=== PATIENT | male | born 1940 | race Caucasian/White ===

== ENCOUNTER 2018-09-03 15:16 | Inpatient (IN) | payer MEDICARE, BC ==
[~2018-09-03] VITALS: Ht 182.9 cm; Wt 76.0 kg
[2018-09-03 15:56] LABS: BASO % 1 % (0-3); EOS # 0.1 x10^3/uL (0.0-0.7); EOS % 1 % (0-3); HEMATOCRIT 34.6 % (39.0-53.0); HEMOGLOBIN 11.4 g/dL (13.0-17.5); LYMPH # 1.4 x10^3/uL (1.0-4.8); LYMPH % 22 % (24-48); MEAN CORPUSCULAR HEMOGLOBIN 30 pg (25-35); MEAN CORPUSCULAR HGB CONC 33 g/dL (31-37); MEAN CORPUSCULAR VOLUME 91 fL (79-100); MONO # 0.5 x10^3/uL (0.0-1.1); MONO % 8 % (0-9); NEUT # 4.3 x10^3uL (1.8-7.7); NEUT % 69 % (31-73); PLATELET COUNT 234 x10^3/uL (140-400); RED BLOOD COUNT 3.82 x10^6/uL (4.30-5.70); RED CELL DISTRIBUTION WIDTH 14.6 % (11.5-14.5); WHITE BLOOD COUNT 6.2 x10^3/uL (4.0-11.0)
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
[2018-09-03 16:10] LABS: CLARITY,URINE CLEAR; COLOR,URINE AMBER
[2018-09-03 16:11] LABS: BACTERIA,URINE 0 /HPF (0-FEW); BILIRUBIN,URINE NEG (NEG); GLUCOSE,URINE NEG (NEG); NITRITE,URINE NEG (NEG); RBC,URINE 0 /HPF (0-2); SQUAMOUS EPITHELIAL CELL,UR OCC /LPF; UROBILINOGEN,URINE 0.2 mg/dL (0.2 mg/dL); WBC,URINE 0 /HPF (0-4)
[2018-09-03 16:12] LABS: ALBUMIN 3.6 g/dL (3.4-5.0); ALBUMIN/GLOBULIN RATIO 1.2 (1.0-1.7); CALCIUM 9.4 mg/dL (8.5-10.1); CREATININE 1.3 mg/dL (0.7-1.3); GFR 53.5; MAGNESIUM 1.9 mg/dL (1.8-2.4); POTASSIUM 3.9 mmol/L (3.5-5.1); TOTAL BILIRUBIN 0.5 mg/dL (0.2-1.0); TOTAL PROTEIN 6.6 g/dL (6.4-8.2)
--- NOTE | 2018-09-03 16:48 | EKG ---
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
[2018-09-03] MEDS ORDERED: NITROGLYCERIN SUBLINGUAL 0.4 MG BOTTLE OF 25. SL PRN (18:15)
[2018-09-03] MEDS ORDERED: SENNOSIDES/DOCUSATE 8.6/50MG TABLET. PO PRN (18:15)
[2018-09-03] MEDS ORDERED: ACETAMINOPHEN 325 MG TABLET PO PRN (18:15)
[2018-09-03] MEDS ORDERED: NITR0.4T22 SL (18:20)
[2018-09-03] MEDS ORDERED: ASCO500T PO (18:20)
[2018-09-03] MEDS ORDERED: ATOR40TA59 PO (18:20)
[2018-09-03] MEDS ORDERED: MEMA10TA PO (18:20)
[2018-09-03] MEDS ORDERED: AZEL137S3 NS (18:20)
[2018-09-03] MEDS ORDERED: SENN1TAB62 PO (18:20)
[2018-09-03] MEDS ORDERED: MIRT15TA PO (18:20)
[2018-09-03] MEDS ORDERED: METO25TA4 PO (18:20)
[2018-09-03] MEDS ORDERED: CHOL10003 PO (18:20)
[2018-09-03] MEDS ORDERED: ASPI-612 PO (18:20)
[2018-09-03] MEDS ORDERED: FOLI1TAB16 PO (18:20)
[2018-09-03] MEDS ORDERED: HYDR50CA2 PO (18:20)
[2018-09-03] MEDS ORDERED: MULT1TAB52 PO (18:20)
[2018-09-03] MEDS ORDERED: MELA3TAB2 PO (18:20)
[2018-09-03] MEDS ORDERED: APIX5TAB3 PO (18:20)
[2018-09-03] MEDS ORDERED: CALC500T31 PO (18:20)
[2018-09-03] MEDS ORDERED: ACET325T9 PO (18:20)
[2018-09-03] MEDS ORDERED: METHYL SALICYLATE/MENTHOL TOPICAL OINTMENT 29GM TUBE. TP PRN (18:30)
[2018-09-03] MEDS ORDERED: MAGNESIUM HYDROXIDE 2,400 MG/30 ML ORAL.SUSP. PO PRN (18:30)
[2018-09-03] MEDS ORDERED: MAG HYDROX/AL HYDROX/SIMETH 30 ML ORAL.SUSP PO PRN (18:30)
[2018-09-03 18:35] VITALS: BP 113/82
[2018-09-03] MEDS: AZELASTINE NASAL SPRAY 30ML BOTTLE. NS SCH (21:00)
[2018-09-03] MEDS: METOPROLOL TART IMMED RELEASE 25 MG TABLET PO SCH (21:29)
[2018-09-03] MEDS: APIXABAN 5 MG TABLET. PO SCH (21:29)
[2018-09-03] MEDS: MIRTAZAPINE 7.5 MG TABLET. PO SCH (21:30)
[2018-09-03] MEDS: CALCIUM CARBONATE 500 MG TABLET PO SCH (21:30)
[2018-09-03] MEDS: MEMANTINE 10 MG TABLET. PO SCH (21:30)
[2018-09-03] MEDS: ATORVASTATIN CALCIUM 20 MG TABLET PO SCH (21:30)
[2018-09-03] MEDS: CHOLECALCIFEROL (VITAMIN D3) 1,000 UNIT TABLET PO SCH (21:30)
[2018-09-03] MEDS: MELATONIN 3 MG TABLET PO SCH (21:30)
--- NOTE | 2018-09-03 22:20 | PDOC ---
Exam Note: Hu Note: Please also refer to the separate dictated note~for this date of service dictated separately. Discussed the patient with Nursing staff reviewed the chart.~Reviewed interim history and current functioning. Reviewed vital signs,~Labs/ Radiology~and current medications noted below. Continue current treatment with the changes noted in the dictated addendum note Assessment: Vital Signs: Vital Signs Date Time Temp Pulse Resp B/P (MAP) Pulse Ox O2 Delivery O2 Flow Rate FiO2 09/03/18 21:29 89 113/82 09/03/18 18:35 98.8 16 98 09/03/18 17:10 Room Air Labs: Laboratory Tests Test 09/03/18 15:35 09/03/18 15:45 White Blood Count 6.2 x10^3/uL (4.0-11.0) Red Blood Count 3.82 x10^6/uL (4.30-5.70) L Hemoglobin 11.4 g/dL (13.0-17.5) L Hematocrit 34.6 % (39.0-53.0) L Mean Corpuscular Volume 91 fL (79-100) Mean Corpuscular Hemoglobin 30 pg (25-35) Mean Corpuscular Hemoglobin Concent 33 g/dL (31-37) Red Cell Distribution Width 14.6 % (11.5-14.5) H Platelet Count 234 x10^3/uL (140-400) Neutrophils (%) (Auto) 69 % (31-73) Lymphocytes (%) (Auto) 22 % (24-48) L Monocytes (%) (Auto) 8 % (0-9) Eosinophils (%) (Auto) 1 % (0-3) Basophils (%) (Auto) 1 % (0-3) Neutrophils # (Auto) 4.3 x10^3uL (1.8-7.7) Lymphocytes # (Auto) 1.4 x10^3/uL (1.0-4.8) Monocytes # (Auto) 0.5 x10^3/uL (0.0-1.1) Eosinophils # (Auto) 0.1 x10^3/uL (0.0-0.7) Basophils # (Auto) 0.0 x10^3/uL (0.0-0.2) Sodium Level 145 mmol/L (136-145) Potassium Level 3.9 mmol/L (3.5-5.1) Chloride Level 108 mmol/L (98-107) H Carbon Dioxide Level 29 mmol/L (21-32) Anion Gap 8 (6-14) Blood Urea Nitrogen 16 mg/dL (8-26) Creatinine 1.3 mg/dL (0.7-1.3) Estimated GFR (Cockcroft-Gault) 53.5 BUN/Creatinine Ratio 12 (6-20) Glucose Level 103 mg/dL (70-99) H Calcium Level 9.4 mg/dL (8.5-10.1) Magnesium Level 1.9 mg/dL (1.8-2.4) Total Bilirubin 0.5 mg/dL (0.2-1.0) Aspartate Amino Transferase (AST) 29 U/L (15-37) Alanine Aminotransferase (ALT) 16 U/L (16-63) Alkaline Phosphatase 103 U/L (46-116) Total Protein 6.6 g/dL (6.4-8.2) Albumin 3.6 g/dL (3.4-5.0) Albumin/Globulin Ratio 1.2 (1.0-1.7) Urine Collection Type Unknown Urine Color Sania Urine Clarity Clear Urine pH 5.5 Urine Specific Marine 1.015 Urine Protein Neg (NEG-TRACE) Urine Glucose (UA) Neg mg/dL (NEG) Urine Ketones (Stick) Trace mg/dL (NEG) Urine Blood Neg (NEG) Urine Nitrite Neg (NEG) Urine Bilirubin Neg (NEG) Urine Urobilinogen Dipstick 0.2 mg/dL (0.2 mg/dL) Urine Leukocyte Esterase Neg (NEG) Urine RBC 0 /HPF (0-2) Urine WBC 0 /HPF (0-4) Urine Squamous Epithelial Cells Occ /LPF Urine Bacteria 0 /HPF (0-FEW) Urine Mucus Slight /LPF Current Medications: Meds: Current Medications Acetaminophen (Tylenol) 650 mg PRN Q4HRS PRN PO PAIN / TEMP; Start 09/03/18 at 18:15 Calcium Carbonate/ Glycine (Oscal) 500 mg QHS PO Last administered on 09/03/18at 21:30; Start 09/03/18 at 21:00 Vitamin D (Vitamin D3) 1,000 unit BID PO Last administered on 09/03/18at 21:30; Start 09/03/18 at 21:00 Nitroglycerin (Nitrostat) 0.4 mg PRN Q5MIN PRN SL CHEST PAIN; Start 09/03/18 at 18:15 Senna/Docusate Sodium (Senna Plus) 1 tab PRN BID PRN PO CONSTIPATION; Start 09/03/18 at 18:15 Apixaban (Eliquis) 5 mg BID PO Last administered on 09/03/18at 21:29; Start 09/03/18 at 21:00 Ascorbic Acid (Vitamin C) 500 mg DAILY PO ; Start 09/04/18 at 09:00 Aspirin (Aspirin Enteric Coated) 81 mg DAILYWBKFT PO ; Start 09/04/18 at 08:00 Atorvastatin Calcium (Lipitor) 40 mg QHS PO Last administered on 09/03/18at 21:30; Start 09/03/18 at 21:00 Folic Acid (Folic Acid) 1 mg DAILY PO ; Start 09/04/18 at 09:00 Melatonin 6 mg QHS PO Last administered on 09/03/18at 21:30; Start 09/03/18 at 21:00 Memantine (Namenda) 10 mg BID PO Last administered on 09/03/18at 21:30; Start 09/03/18 at 21:00 Mirtazapine (Remeron) 7.5 mg QHS PO Last administered on 09/03/18at 21:30; Start 09/03/18 at 21:00 Multivitamins/ Calcium (Thera-M Plus) 1 tab DAILY PO ; Start 09/04/18 at 09:00 Azelastine HCl (Astelin) 1 spray BID NS ; Start 09/03/18 at 21:00 Metoprolol Tartrate (Lopressor) 25 mg BID PO Last administered on 09/03/18at 21:29; Start 09/03/18 at 21:00 Quetiapine Fumarate (SEROquel) 25 mg PRN BID PRN PO ANXIETY / AGITATION; Start 09/03/18 at 18:30 Multi-Ingredient Ointment (Analgesic [place]) 1 kelsie PRN QID PRN TP MUSCLE PAIN; Start 09/03/18 at 18:30 Al Hydroxide/Mg Hydroxide (Mylanta Plus Xs) 15 ml PRN AFTMEALHC PRN PO DYSPEPSIA; Start 09/03/18 at 18:30 Magnesium Hydroxide (Milk Of Magnesia) 2,400 mg PRN QHS PRN PO CONSTIPATION; Start 09/03/18 at 18:30 Active Scripts Active Reported Tylenol (Acetaminophen) 325 Mg Tablet 650 Mg PO PRN Q4HRS PRN NITROGLYCERIN SubLingual (Nitroglycerin) 0.4 Mg Tab.subl 0.4 Mg SL PRN Q5MIN PRN Senna Plus Tablet (Sennosides/Docusate Sodium) 1 Each Tablet 1 Each PO PRN BID PRN Vitamin D3 (Cholecalciferol (Vitamin D3)) 1,000 Unit Tablet 1,000 Unit PO BID Vitamin C (Ascorbic Acid) 500 Mg Tab.chew 500 Mg PO DAILY Multivitamins (Multivitamin) 1 Each Tablet 1 Each PO DAILY Remeron (Mirtazapine) 15 Mg Tablet 7.5 Mg PO QHS Metoprolol Tartrate 25 Mg Tablet 25 Mg PO BID Namenda (Memantine Hcl) 10 Mg Tablet 10 Mg PO BID Melatonin 3 Mg Tablet 6 Mg PO QHS Hydroxyzine Pamoate 50 Mg Capsule 50 Mg PO QID Folic Acid 1 Mg Tablet 1 Tab PO DAILY Eliquis (Apixaban) 5 Mg Tablet 5 Mg PO BID Calcium Carbonate 500 Mg Tablet 500 Mg PO QHS Azelastine Hcl 137 Mcg/0.137 Ml Romulus.pump 1 Spr NS BID Atorvastatin Calcium 40 Mg Tablet 40 Mg PO QHS Aspirin Ec (Aspirin) 81 Mg Tablet. 81 Mg PO DAILY I have reviewed the current psychotropics carefully including drug interactions. Risk benefit ratio favors no change other than as noted in my dictated progress note. NELSON VASQUEZ MD September 03, 2018 22:20
[2018-09-04 06:10] VITALS: BP 122/79
[2018-09-04] MEDS: MULTIVITAMIN with MINERAL TABLET. PO SCH (09:00)
--- NOTE | 2018-09-04 11:28 | RAD ---
CT HEAD WO CONTRAST History: Recent change in mental status Comparison: None. Technique: Noncontrast CT imaging was performed of the head. Exposure: One or more of the following individualized dose reduction techniques were utilized for this examination: 1. Automated exposure control 2. Adjustment of the mA and/or kV according to patient size 3. Use of iterative reconstruction technique. Findings: There is some motion degradation. There is no evidence of acute intracranial hemorrhage. There is asymmetric area of lower density of the right parietal temporal lobes estimated about 3.5 cm AP by about 2.6 cm transverse. There is extent near cortical surface, also along the posterior margin of the right lateral ventricle. There is other scattered mild ill-defined low-density of the supratentorial parenchyma bilaterally. Ventricular size is within normal limits. There is mild supratentorial atrophy. There is atherosclerotic calcification of the carotid siphons bilaterally. Visualized paranasal sinuses and mastoid air cells are overall aerated. Impression: 1. There is area of lower density of the right parietal temporal lobes, could be a subacute infarct. There are no previous exams for comparison. Other ill-defined low-density of the supratentorial parenchyma is nonspecific although more commonly due to chronic microvascular ischemic disease in a patient this age. FOR INTERNAL CODING PURPOSES Critical result: Findings discussed with patient's nurse Kelsey at 09/04/2018 11:25 AM, to inform doctor of findings. RESULT CODE: (C) Electronically signed by: Cooper Wallis MD (09/04/2018 11:26 AM) [id number]
--- NOTE | 2018-09-04 11:38 | NUR ---
Nursing Note: Rec phone call from radiology. CT Head results show, 'lover density of right parietal temporal lobes, could be a subacute infarct.' Dr. Pettit informed, orders rec to consults Dr. Mcpherson, Neuro.
--- NOTE | 2018-09-04 11:59 | NUR ---
Discussed with patient daughter, Dilma, jose last CT head was approximately a year ago.
[2018-09-04] MEDS: CHOLECALCIFEROL (VITAMIN D3) 1,000 UNIT TABLET PO SCH ×2 (12:05→19:31)
[2018-09-04] MEDS: APIXABAN 5 MG TABLET. PO SCH ×2 (12:05→19:31)
[2018-09-04] MEDS: MEMANTINE 10 MG TABLET. PO SCH ×2 (12:05→19:31)
[2018-09-04] MEDS: METOPROLOL TART IMMED RELEASE 25 MG TABLET PO SCH ×2 (12:06→19:31)
[2018-09-04] MEDS: AZELASTINE NASAL SPRAY 30ML BOTTLE. NS SCH ×2 (12:09→19:32)
[2018-09-04] MEDS: ASPIRIN ENTERIC COATED 81 MG TABLET.DR. PO SCH (12:09)
[2018-09-04] MEDS: ASCORBIC ACID 500 MG TABLET PO SCH (12:09)
[2018-09-04] MEDS: FOLIC ACID 1 MG TABLET PO SCH (12:13)
--- NOTE | 2018-09-04 12:16 | NUR ---
WEEKLY NOTE Pt. is a new admit. Pt. will be scheduled for a CT head scan. Pt. does not have a UTI. Pt. is tentatively scheduled to discharge the early part of the week after next.
--- NOTE | 2018-09-04 12:23 | NUR ---
GERARDO contacted Frida, nurse at [facility], to exchange contact information. Frida shared pt. often gets aggressive around 4:00 p.m. She also reports when pt. is at his baseline, he prefers to have his bedtime medications with his supper, as he goes to bed early.
[2018-09-04] MEDS ORDERED: traZODone 50 MG TABLET. PO ONE (13:00)
--- NOTE | 2018-09-04 13:24 | NUR ---
Nursing Note: Pt agitated. Told walked up behind staff member and said, "You don't want to , do you?" Pt also stated, "It's gonna blow up." Dr. Saeed contacted. PRN ordered and administered. Pt in [facility] shaking doors, hitting windows. Will continue to monitor.
--- NOTE | 2018-09-04 13:55 | NUR ---
Nursing Note: While pt was in [facility], pt was agitated, shaking day room door, and hitting window of nurses station. Pt closed the door of quiet room. When this behavior/act was discovered, action was taken to correct.
[2018-09-04 13:56] LABS: THYROID STIM HORMONE (TSH) 1.17 uIU/mL (0.358-3.740)
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
[2018-09-04 15:37] VITALS: BP 137/82
[2018-09-04] MEDS: traZODone 50 MG TABLET. PO SCH (16:52)
[2018-09-04 18:11] LABS: THYROXINE 5.5 ug/dL (4.5-12.0)
[2018-09-04] MEDS: MELATONIN 3 MG TABLET PO SCH (19:31)
[2018-09-04] MEDS: ATORVASTATIN CALCIUM 20 MG TABLET PO SCH (19:31)
[2018-09-04] MEDS: CALCIUM CARBONATE 500 MG TABLET PO SCH (19:31)
[2018-09-04] MEDS: MIRTAZAPINE 7.5 MG TABLET. PO SCH (19:31)
--- NOTE | 2018-09-04 22:14 | PDOC ---
Exam Note: Hu Note: Please also refer to the separate dictated note~for this date of service dictated separately.~Patient seen individually. Discussed the patient with Nursing staff reviewed the chart.~Reviewed interim history and current functioning. Reviewed vital signs,~Labs/ Radiology~and current medications noted below. Continue current treatment with the changes noted in the dictated addendum note Assessment: Vital Signs: Vital Signs Date Time Temp Pulse Resp B/P (MAP) Pulse Ox O2 Delivery O2 Flow Rate FiO2 09/04/18 19:31 83 137/82 09/04/18 15:37 98.9 16 96 09/03/18 17:10 Room Air I&O Intake and Output 09/04/18 07:00 Intake Total 420 ml Balance 420 ml Intake Oral 420 ml # Voids 1 Current Medications: Meds: Current Medications Acetaminophen (Tylenol) 650 mg PRN Q4HRS PRN PO PAIN / TEMP; Start 09/03/18 at 18:15 Calcium Carbonate/ Glycine (Oscal) 500 mg QHS PO Last administered on 09/04/18 19:31; Start 09/03/18 at 21:00 Vitamin D (Vitamin D3) 1,000 unit BID PO Last administered on 09/04/18 19:31; Start 09/03/18 at 21:00 Nitroglycerin (Nitrostat) 0.4 mg PRN Q5MIN PRN SL CHEST PAIN; Start 09/03/18 at 18:15 Senna/Docusate Sodium (Senna Plus) 1 tab PRN BID PRN PO CONSTIPATION; Start 09/03/18 at 18:15 Apixaban (Eliquis) 5 mg BID PO Last administered on 09/04/18 19:31; Start 09/03/18 at 21:00 Ascorbic Acid (Vitamin C) 500 mg DAILY PO Last administered on 09/04/18 12:09; Start 09/04/18 at 09:00 Aspirin (Aspirin Enteric Coated) 81 mg DAILYWBKFT PO Last administered on 09/04/18 12:09; Start 09/04/18 at 08:00 Atorvastatin Calcium (Lipitor) 40 mg QHS PO Last administered on 09/04/18 19:31; Start 09/03/18 at 21:00 Folic Acid (Folic Acid) 1 mg DAILY PO Last administered on 09/04/18at 12:13; Start 09/04/18 at 09:00 Melatonin 6 mg QHS PO Last administered on 09/04/18 19:31; Start 09/03/18 at 21:00 Memantine (Namenda) 10 mg BID PO Last administered on 09/04/18 19:31; Start 09/03/18 at 21:00 Mirtazapine (Remeron) 7.5 mg QHS PO Last administered on 09/04/18 19:31; Start 09/03/18 at 21:00 Multivitamins/ Calcium (Thera-M Plus) 1 tab DAILY PO Last administered on 09/04/18 09:00; Start 09/04/18 at 09:00 Azelastine HCl (Astelin) 1 spray BID NS Last administered on 09/04/18 19:32; Start 09/03/18 at 21:00 Metoprolol Tartrate (Lopressor) 25 mg BID PO Last administered on 09/04/18 19:31; Start 09/03/18 at 21:00 Quetiapine Fumarate (SEROquel) 25 mg PRN BID PRN PO ANXIETY / AGITATION; Start 09/03/18 at 18:30 Multi-Ingredient Ointment (Analgesic [place]) 1 kelsie PRN QID PRN TP MUSCLE PAIN; Start 09/03/18 at 18:30 Al Hydroxide/Mg Hydroxide (Mylanta Plus Xs) 15 ml PRN AFTMEALHC PRN PO DYSPEPSIA; Start 09/03/18 at 18:30 Magnesium Hydroxide (Milk Of Magnesia) 2,400 mg PRN QHS PRN PO CONSTIPATION; Start 09/03/18 at 18:30 Trazodone HCl (Desyrel) 25 mg 1X ONCE PO Last administered on 09/04/18 13:19; Start 09/04/18 at 13:00; Stop 09/04/18 at 13:10; Status DC Trazodone HCl (Desyrel) 25 mg 0900,1700 PO Last administered on 09/04/18 16:52; Start 09/04/18 at 17:00 Active Scripts Active Reported Tylenol (Acetaminophen) 325 Mg Tablet 650 Mg PO PRN Q4HRS PRN NITROGLYCERIN SubLingual (Nitroglycerin) 0.4 Mg Tab.subl 0.4 Mg SL PRN Q5MIN PRN Senna Plus Tablet (Sennosides/Docusate Sodium) 1 Each Tablet 1 Each PO PRN BID PRN Vitamin D3 (Cholecalciferol (Vitamin D3)) 1,000 Unit Tablet 1,000 Unit PO BID Vitamin C (Ascorbic Acid) 500 Mg Tab.chew 500 Mg PO DAILY Multivitamins (Multivitamin) 1 Each Tablet 1 Each PO DAILY Remeron (Mirtazapine) 15 Mg Tablet 7.5 Mg PO QHS Metoprolol Tartrate 25 Mg Tablet 25 Mg PO BID Namenda (Memantine Hcl) 10 Mg Tablet 10 Mg PO BID Melatonin 3 Mg Tablet 6 Mg PO QHS Hydroxyzine Pamoate 50 Mg Capsule 50 Mg PO QID Folic Acid 1 Mg Tablet 1 Tab PO DAILY Eliquis (Apixaban) 5 Mg Tablet 5 Mg PO BID Calcium Carbonate 500 Mg Tablet 500 Mg PO QHS Azelastine Hcl 137 Mcg/0.137 Ml [place].pump 1 Spr NS BID Atorvastatin Calcium 40 Mg Tablet 40 Mg PO QHS Aspirin Ec (Aspirin) 81 Mg Tablet.dr 81 Mg PO DAILY I have reviewed the current psychotropics carefully including drug interactions. Risk benefit ratio favors no change other than as noted in my dictated progress note. Diagnosis: Problems: (1) Anxiety disorder (2) Dementia, vascular, with depression (3) Dementia, vascular, with delusions (4) Dementia in Alzheimer's disease with depression (5) Dementia in Alzheimer's disease with delusions (6) Impulse control disorder NELSON VASQUEZ MD September 04, 2018 22:14
--- NOTE | 2018-09-04 23:20 | NUR ---
Pt sitting up in day room, interacting with peer and watching television at shift change. Pt calm, pleasant, and social. No agitation or aggression noted thus far this shift. Pt cooperative with assessment and compliant with medications administered whole.
[2018-09-05 05:10] VITALS: BP 138/81
[2018-09-05] MEDS: ASCORBIC ACID 500 MG TABLET PO SCH (07:52)
[2018-09-05] MEDS: METOPROLOL TART IMMED RELEASE 25 MG TABLET PO SCH ×2 (07:53→20:15)
[2018-09-05] MEDS: MULTIVITAMIN with MINERAL TABLET. PO SCH (07:53)
[2018-09-05] MEDS: FOLIC ACID 1 MG TABLET PO SCH (07:53)
[2018-09-05] MEDS: ASPIRIN ENTERIC COATED 81 MG TABLET.DR. PO SCH (07:54)
[2018-09-05] MEDS: MEMANTINE 10 MG TABLET. PO SCH ×2 (07:54→20:12)
[2018-09-05] MEDS: CHOLECALCIFEROL (VITAMIN D3) 1,000 UNIT TABLET PO SCH ×2 (07:54→20:15)
[2018-09-05] MEDS: APIXABAN 5 MG TABLET. PO SCH ×2 (07:54→20:14)
[2018-09-05] MEDS: traZODone 50 MG TABLET. PO SCH ×2 (07:55→17:43)
[2018-09-05] MEDS: AZELASTINE NASAL SPRAY 30ML BOTTLE. NS SCH ×2 (07:58→20:19)
--- NOTE | 2018-09-05 09:00 | NUR ---
Nursing Note: Assumed care of pt approx 0700. Pt in dining room at time of morning med pass. Pt calm, confused, compliant w/ meds taken whole, needing prompting as he isn't quite sure what to do with the pills, cooperative w/ assessment. Pt wanders the unit and often stands in the day room for long periods of time.
--- NOTE | 2018-09-05 09:00 | NUR ---
Nursing Note: Called Dr. Mcpherson's office to insure that consult was received.
[2018-09-05 10:10] LABS: HEMOGLOBIN A1C 5.2 % (4.8-5.6)
--- NOTE | 2018-09-05 10:34 | NUR ---
Activity Therapy Assessment Completed based on observation, attempted interview and [employer] notes. Pt. was wandering the hallway with another patient when therapist approached. Therapist greeted the patients and Pt. nodded at her. Other patient began speaking in word salad and seemed in a good mood. Therapist attempted to engage Pt. in conversation, asking how his day was- Pt. shrugged and mumbled something therapist could not hear. Therapist walked with patients but when she asked to sit and talk, Pt. responded 'we don't have time' and seemed disinterested in talking to therapist. Pt. affect was flat and he showed no emotion. Therapist thanked Pt. and told him she would see him later. Pt. waved and continued walking the hallways with other patient. Pt. ambulates independently, walking with the other patient often. Pt. wanders in and out of groups but has yet to participate. 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 Pt. responds to name but is disoriented to time, place, and situation. [employer] notes indicate that Pt. can be verbally aggressive with staff and has spent time in the secured hallway but therapist has yet to observe this behavior. Initial goal aimed to increase socialization and engagement: Pt. will participate in at least three Activity Therapy groups or individual sessions before discharge. Addendum: 09/11/18 at 1039 by MIKY [employer] ACT Goal changed 09/11/18: Pt. will participate in at least three Activity Therapy individual or group sessions per week
--- NOTE | 2018-09-05 15:40 | NUR ---
Nursing Note: Pt's family called and asked if family could celebrate pt's birthday with more than two people as visitors and a child under 12 years old. Spoke with oil recovery unit operator. Family is allowed to bring 5 adults on pt's birthday [birth year] and to use group room. However, no person under 12 is allowed on the unit. Family is aware and Jaylin, Social Work, also aware.
[2018-09-05 16:15] VITALS: BP 123/84
[2018-09-05] MEDS: DIVALPROEX 125 MG CAP.SPRINK PO SCH (17:43)
--- NOTE | 2018-09-05 19:50 | CONS ---
DATE OF CONSULTATION: 09/03/2018 REASON FOR CONSULTATION: Medical management. HISTORY OF PRESENT ILLNESS: The patient is a 77-year-old male patient, a resident at [facility], who apparently was admitted on account of worsening confusion, dementia with drastic decline cognitively. The patient has been combative, throwing sugar shakers at everyone around him, pulling fire alarms. He pulled handrails off the wall. He was scaring other residents by hiding. He is having sleep and appetite changes, had failed outpatient psychiatric intervention and he was moved to another [facility]. As he has failed outpatient psychiatric intervention, he was admitted for inpatient psychiatric stabilization. The patient is extremely disorganized and does not give me any useful information. PAST MEDICAL HISTORY: Significant for atrial fibrillation, coronary artery disease with stent deployment, hypertension, chronic constipation, anemia, recent falls, history of fractured foot and repair, history of alcohol abuse in the past. PAST SURGICAL HISTORY: Significant for cholecystectomy, PCI with stent deployment and foot fractures treated with open reduction and internal fixation. He apparently had a CT scan of the head, which showed that he has parietal infarct which was not evident the last time this was done when he was here a year ago. ALLERGIES: HE IS ALLERGIC TO ZYPREXA. FAMILY HISTORY: Noncontributory. SOCIAL HISTORY: He is a resident at the [facility]. He does not smoke, drink alcohol or use any recreational drugs. MEDICATIONS: He is currently on following medications: He is on apixaban 5 mg twice a day, atorvastatin calcium 40 mg at bedtime, nitroglycerin 0.4 mg every 5 minutes x 3, metoprolol tartrate 25 mg twice a day, aspirin 81 mg once a day, Tylenol 650 mg every 4 hours, mirtazapine 7.5 mg at bedtime. He is on hydroxyzine pamoate 50 mg 4 times a day, Namenda 10 mg twice a day, calcium carbonate 500 mg at bedtime, Zalastin one spray to each nostril twice a day, Senna-S 1 tablet twice a day, folic acid 1 mg tablet once a day, ascorbic acid 500 mg daily, cholecalciferol 1000 international units 1 twice a day, multivitamin 1 tablet once a day, melatonin 6 mg at bedtime. REVIEW OF SYSTEMS: As per history of present illness. PHYSICAL EXAMINATION GENERAL: When I examined him, he looked somewhat pale, but no jaundice, cyanosis, or thyromegaly. No jugular venous distension. No lower limb edema. VITAL SIGNS: His heart rate was 83, blood pressure 157/82, temperature was 98.9, respiratory rate 16, and oxygen saturation was 96%. HEAD, EYES, EARS, NOSE AND THROAT: Normocephalic, atraumatic. NECK: Supple. HEART: Showed normal first and second heart sounds. No gallop, rub or murmur. CHEST: Clear to auscultation. No crepitation or rhonchi. ABDOMEN: Distended, soft, nontender. No guarding or rigidity. No organomegaly. All hernial orifice intact. Bowel sounds normal. NEUROLOGIC: He was clearly demented and does not really give any useful information; however, all his cranial nerves are grossly intact. EXTREMITIES: He moves extremities without difficulty. He has some wounds in his right wrist and outer aspect of the right leg covered with dressing. LABORATORY DATA: Showed that his white cell count was 6200, hemoglobin 11, hematocrit 34, MCV 91, and platelet count 234,000 with normal manual differential. His chemistry showed a serum sodium 145, potassium 3.9, chloride 108, bicarbonate 29, anion gap of 8, BUN 16, creatinine 1.3, estimated GFR was 54 mL per minute. His glucose 103, calcium was 9.4, magnesium was 1.9. Serum iron, TIBC and iron saturation are all consistent with anemia of chronic disease. Total bilirubin, AST, ALT, alkaline phosphatase were normal. Total protein was 6.6, albumin 3.6. Serum triglycerides were 33, total cholesterol 149, LDL cholesterol was 60, VLDL was 6, HDL cholesterol was 83 and the ratio was 1. His 25-hydroxy vitamin D was 49. His TSH was 1.17, total T4 was 5.5, total T3 was 68. His Treponema pallidum antibodies were nonreactive. Urinalysis was essentially unremarkable. He apparently has had a CT scan of the head, which basically showed that there are areas of low density in the right parietotemporal lobe, could be a subacute infarct. There are no previous exams for comparison. Other ill-defined low density of the supratentorial parenchyma is nonspecific, although more commonly due to chronic microvascular ischemic disease in the patient of this age. IMPRESSION: In summary, this is a 77-year-old male patient who was admitted as a transfer from [facility] on account of worsening confusion, dementia with drastic decline cognitively, the patient has been combative, throwing sugar shakers at everyone around him, pulling the fire alarms, he pulled handrails off the wall and has been scaring the residents by hiding. He has failed outpatient psychiatric intervention and therefore, he was admitted for inpatient psychiatric stabilization. Medically, the patient is known to have atrial fibrillation that seemed to be rate controlled while anticoagulated, has coronary artery disease, status post PCI with stent deployment, hypertension, chronic constipation, anemia, history of alcohol abuse and most recently has a parietal infarct that was not evident on the last time he was here. Generally, the patient seems to be medically stable. His vital signs are within normal range. His lab works are also within acceptable range. PLAN: My recommendation is to continue with his current medication. I will follow all his lab works that are still pending and make necessary recommendation. Thank you, Dr. Saeed, for allowing me to participate in the care of this patient. BECKY TALBOT MD DR: KATIE/rosa elena JOB#: [id number] / [id number]
[2018-09-05] MEDS: MIRTAZAPINE 7.5 MG TABLET. PO SCH (20:14)
[2018-09-05] MEDS: ATORVASTATIN CALCIUM 20 MG TABLET PO SCH (20:14)
[2018-09-05] MEDS: CALCIUM CARBONATE 500 MG TABLET PO SCH (20:14)
[2018-09-05] MEDS: MELATONIN 3 MG TABLET PO SCH (20:15)
--- NOTE | 2018-09-05 21:39 | NUR ---
Pt wandering in hallway at shift change. Pt calm, pleasantly confused, and interactive. Pt cooperative with assessment and compliant with medications administered whole. Dr. Mcpherson saw pt this evening, no new orders received at this time.
--- NOTE | 2018-09-05 22:26 | PDOC ---
Exam Note: Hu Note: Please also refer to the separate dictated note~for this date of service dictated separately.~Patient seen individually. Discussed the patient with Nursing staff reviewed the chart.~Reviewed interim history and current functioning. Reviewed vital signs,~Labs/ Radiology~and current medications noted below. Continue current treatment with the changes noted in the dictated addendum note Assessment: Vital Signs: Vital Signs Date Time Temp Pulse Resp B/P (MAP) Pulse Ox O2 Delivery O2 Flow Rate FiO2 09/05/18 20:15 75 123/84 09/05/18 16:15 97.9 17 99 Room Air I&O Intake and Output 09/05/18 06:59 Intake Total 720 ml Balance 720 ml Intake Oral 720 ml Current Medications: Meds: Current Medications Acetaminophen (Tylenol) 650 mg PRN Q4HRS PRN PO PAIN / TEMP; Start 09/03/18 at 18:15 Calcium Carbonate/ Glycine (Oscal) 500 mg QHS PO Last administered on 09/05/18at 20:14; Start 09/03/18 at 21:00 Vitamin D (Vitamin D3) 1,000 unit BID PO Last administered on 09/05/18 20:15; Start 09/03/18 at 21:00 Nitroglycerin (Nitrostat) 0.4 mg PRN Q5MIN PRN SL CHEST PAIN; Start 09/03/18 at 18:15 Senna/Docusate Sodium (Senna Plus) 1 tab PRN BID PRN PO CONSTIPATION; Start 09/03/18 at 18:15 Apixaban (Eliquis) 5 mg BID PO Last administered on 09/05/18 20:14; Start 09/03/18 at 21:00 Ascorbic Acid (Vitamin C) 500 mg DAILY PO Last administered on 09/05/18 07:52; Start 09/04/18 at 09:00 Aspirin (Aspirin Enteric Coated) 81 mg DAILYWBKFT PO Last administered on 09/05/18 07:54; Start 09/04/18 at 08:00 Atorvastatin Calcium (Lipitor) 40 mg QHS PO Last administered on 09/05/18 20:14; Start 09/03/18 at 21:00 Folic Acid (Folic Acid) 1 mg DAILY PO Last administered on 09/05/18 07:53; Start 09/04/18 at 09:00 Melatonin 6 mg QHS PO Last administered on 09/05/18 20:15; Start 09/03/18 at 21:00 Memantine (Namenda) 10 mg BID PO Last administered on 09/05/18 20:12; Start 09/03/18 at 21:00 Mirtazapine (Remeron) 7.5 mg QHS PO Last administered on 09/05/18 20:14; Start 09/03/18 at 21:00 Multivitamins/ Calcium (Thera-M Plus) 1 tab DAILY PO Last administered on 09/05/18 07:53; Start 09/04/18 at 09:00 Azelastine HCl (Astelin) 1 spray BID NS Last administered on 09/05/18 20:19; Start 09/03/18 at 21:00 Metoprolol Tartrate (Lopressor) 25 mg BID PO Last administered on 09/05/18 20:15; Start 09/03/18 at 21:00 Quetiapine Fumarate (SEROquel) 25 mg PRN BID PRN PO ANXIETY / AGITATION; Start 09/03/18 at 18:30 Multi-Ingredient Ointment (Analgesic [place]) 1 kelsie PRN QID PRN TP MUSCLE PAIN; Start 09/03/18 at 18:30 Al Hydroxide/Mg Hydroxide (Mylanta Plus Xs) 15 ml PRN AFTMEALHC PRN PO DYSPEPSIA; Start 09/03/18 at 18:30 Magnesium Hydroxide (Milk Of Magnesia) 2,400 mg PRN QHS PRN PO CONSTIPATION; Start 09/03/18 at 18:30 Trazodone HCl (Desyrel) 25 mg 1X ONCE PO Last administered on 09/04/18 13:19; Start 09/04/18 at 13:00; Stop 09/04/18 at 13:10; Status DC Trazodone HCl (Desyrel) 25 mg 0900,1700 PO Last administered on 09/05/18 17:43; Start 09/04/18 at 17:00 Divalproex Sodium (Depakote Sprinkles) 125 mg 0900,1700 PO Last administered on 09/05/18 17:43; Start 09/05/18 at 17:00 Active Scripts Active Reported Tylenol (Acetaminophen) 325 Mg Tablet 650 Mg PO PRN Q4HRS PRN NITROGLYCERIN SubLingual (Nitroglycerin) 0.4 Mg Tab.subl 0.4 Mg SL PRN Q5MIN PRN Senna Plus Tablet (Sennosides/Docusate Sodium) 1 Each Tablet 1 Each PO PRN BID PRN Vitamin D3 (Cholecalciferol (Vitamin D3)) 1,000 Unit Tablet 1,000 Unit PO BID Vitamin C (Ascorbic Acid) 500 Mg Tab.chew 500 Mg PO DAILY Multivitamins (Multivitamin) 1 Each Tablet 1 Each PO DAILY Remeron (Mirtazapine) 15 Mg Tablet 7.5 Mg PO QHS Metoprolol Tartrate 25 Mg Tablet 25 Mg PO BID Namenda (Memantine Hcl) 10 Mg Tablet 10 Mg PO BID Melatonin 3 Mg Tablet 6 Mg PO QHS Hydroxyzine Pamoate 50 Mg Capsule 50 Mg PO QID Folic Acid 1 Mg Tablet 1 Tab PO DAILY Eliquis (Apixaban) 5 Mg Tablet 5 Mg PO BID Calcium Carbonate 500 Mg Tablet 500 Mg PO QHS Azelastine Hcl 137 Mcg/0.137 Ml [place].pump 1 Spr NS BID Atorvastatin Calcium 40 Mg Tablet 40 Mg PO QHS Aspirin Ec (Aspirin) 81 Mg Tablet.dr 81 Mg PO DAILY I have reviewed the current psychotropics carefully including drug interactions. Risk benefit ratio favors no change other than as noted in my dictated progress note. Diagnosis: Problems: (1) Anxiety disorder (2) Dementia, vascular, with depression (3) Dementia, vascular, with delusions (4) Dementia in Alzheimer's disease with depression (5) Dementia in Alzheimer's disease with delusions (6) Impulse control disorder NELSON VASQUEZ MD September 05, 2018 22:26
--- NOTE | 2018-09-06 02:28 | PN ---
DATE: 09/04/2018 PSYCHIATRIC PROGRESS NOTE This note covers elements not covered in my initial note 09/04/2018. SUBJECTIVE: I met with the patient evening of 09/04/2018 and staffed at a treatment team meeting with the entire team in the morning of 09/04/2018. Reviewed his history, diagnosis, progress. I was called by the nursing staff late the previous night on account of the patient's marked agitation, aggression, disruptive behaviors. He had to be placed in the [facility], totally unmanageable, banging on doors. We did add Zyprexa Zydis. He remains confused. REVIEW OF SYSTEMS: No CV, , pulmonary, eye, ENT system symptoms on review. Reliability poor. MENTAL STATUS EXAM: Oriented to himself. Insight, judgment, recent and remote memory, attention, concentration, fund of knowledge poor, consistent with his diagnosis. I met with him at some length over suppertime. Initially, he was hungry, his tray was brought to him, but he was unable to sit long enough to eat any, was up and walking, had to be redirected back. LABORATORY DATA: Reviewed. IMPRESSION: Major neurocognitive disorder, Alzheimer, vascular with delusion, depression, behavioral disturbance; anxiety disorder, unspecified; impulse control disorder, unspecified. PLAN: Start Zyprexa Zydis 2.5 mg q.2 hours p.r.n. psychosis, agitation, max 10 mg in 24 hours. Continue Remeron 7.5 mg at bedtime, Namenda 10 mg b.i.d., hydroxyzine p.r.n., melatonin 5 mg at bedtime. Consider Depakote as a mood stabilizer. The patient's CT head shows a new infarct since his last visit about a year back and we will consult Dr. Mcpherson, Neurology for recommendation. NELSON VASQUEZ MD DR: OBDULIA/rosa elena JOB#: [id number] / [id number]
[2018-09-06 06:22] VITALS: BP 133/86
[2018-09-06] MEDS: AZELASTINE NASAL SPRAY 30ML BOTTLE. NS SCH ×2 (08:12→19:26)
[2018-09-06] MEDS: ASPIRIN ENTERIC COATED 81 MG TABLET.DR. PO SCH (08:12)
[2018-09-06] MEDS: DIVALPROEX 125 MG CAP.SPRINK PO SCH ×2 (08:13→16:52)
[2018-09-06] MEDS: traZODone 50 MG TABLET. PO SCH ×2 (08:13→16:52)
[2018-09-06] MEDS: APIXABAN 5 MG TABLET. PO SCH ×2 (08:13→19:25)
[2018-09-06] MEDS: ASCORBIC ACID 500 MG TABLET PO SCH (08:14)
[2018-09-06] MEDS: METOPROLOL TART IMMED RELEASE 25 MG TABLET PO SCH ×2 (08:14→19:25)
[2018-09-06] MEDS: MULTIVITAMIN with MINERAL TABLET. PO SCH (08:14)
[2018-09-06] MEDS: CHOLECALCIFEROL (VITAMIN D3) 1,000 UNIT TABLET PO SCH ×2 (08:14→19:26)
[2018-09-06] MEDS: FOLIC ACID 1 MG TABLET PO SCH (08:15)
[2018-09-06] MEDS: MEMANTINE 10 MG TABLET. PO SCH ×2 (08:15→19:25)
--- NOTE | 2018-09-06 10:48 | NUR ---
Pt is confused, calm, cooperative and wandering the unit. No agitation or aggression. No hallucinations or delusions. He is cooperative with his medication and assessment.
[2018-09-06 16:34] VITALS: BP 126/88
[2018-09-06] MEDS: MIRTAZAPINE 7.5 MG TABLET. PO SCH (19:25)
[2018-09-06] MEDS: ATORVASTATIN CALCIUM 20 MG TABLET PO SCH (19:25)
[2018-09-06] MEDS: CALCIUM CARBONATE 500 MG TABLET PO SCH (19:25)
[2018-09-06] MEDS: MELATONIN 3 MG TABLET PO SCH (19:25)
--- NOTE | 2018-09-06 20:38 | NUR ---
Pt sitting quietly in the day room at shift change. Pt calm, pleasantly confused, and disorganized. Pt cooperative with assessment and compliant with medications administered whole.
--- NOTE | 2018-09-06 22:28 | PDOC ---
Exam Note: Hu Note: Please also refer to the separate dictated note~for this date of service dictated separately.~Patient seen individually. Discussed the patient with Nursing staff reviewed the chart.~Reviewed interim history and current functioning. Reviewed vital signs,~Labs/ Radiology~and current medications noted below. Continue current treatment with the changes noted in the dictated addendum note Assessment: Vital Signs: Vital Signs Date Time Temp Pulse Resp B/P (MAP) Pulse Ox O2 Delivery O2 Flow Rate FiO2 09/06/18 19:25 87 126/88 09/06/18 16:34 98.7 18 99 09/05/18 16:15 Room Air I&O Intake and Output 09/06/18 06:59 Intake Total 1220 ml Balance 1220 ml Intake Oral 1220 ml # Voids 1 Current Medications: Meds: Current Medications Acetaminophen (Tylenol) 650 mg PRN Q4HRS PRN PO PAIN / TEMP; Start 09/03/18 at 18:15 Calcium Carbonate/ Glycine (Oscal) 500 mg QHS PO Last administered on 09/06/18at 19:25; Start 09/03/18 at 21:00 Vitamin D (Vitamin D3) 1,000 unit BID PO Last administered on 09/06/18at 19:26; Start 09/03/18 at 21:00 Nitroglycerin (Nitrostat) 0.4 mg PRN Q5MIN PRN SL CHEST PAIN; Start 09/03/18 at 18:15 Senna/Docusate Sodium (Senna Plus) 1 tab PRN BID PRN PO CONSTIPATION; Start 09/03/18 at 18:15 Apixaban (Eliquis) 5 mg BID PO Last administered on 09/06/18 19:25; Start 09/03/18 at 21:00 Ascorbic Acid (Vitamin C) 500 mg DAILY PO Last administered on 09/06/18at 08:14; Start 09/04/18 at 09:00 Aspirin (Aspirin Enteric Coated) 81 mg DAILYWBKFT PO Last administered on 09/06/18at 08:12; Start 09/04/18 at 08:00 Atorvastatin Calcium (Lipitor) 40 mg QHS PO Last administered on 09/06/18 19:25; Start 09/03/18 at 21:00 Folic Acid (Folic Acid) 1 mg DAILY PO Last administered on 09/06/18 08:15; Start 09/04/18 at 09:00 Melatonin 6 mg QHS PO Last administered on 09/06/18 19:25; Start 09/03/18 at 21:00 Memantine (Namenda) 10 mg BID PO Last administered on 09/06/18 19:25; Start 09/03/18 at 21:00 Mirtazapine (Remeron) 7.5 mg QHS PO Last administered on 09/06/18 19:25; Start 09/03/18 at 21:00 Multivitamins/ Calcium (Thera-M Plus) 1 tab DAILY PO Last administered on 09/06/18 08:14; Start 09/04/18 at 09:00 Azelastine HCl (Astelin) 1 spray BID NS Last administered on 09/06/18 19:26; Start 09/03/18 at 21:00 Metoprolol Tartrate (Lopressor) 25 mg BID PO Last administered on 09/06/18 19:25; Start 09/03/18 at 21:00 Quetiapine Fumarate (SEROquel) 25 mg PRN BID PRN PO ANXIETY / AGITATION; Start 09/03/18 at 18:30 Multi-Ingredient Ointment (Analgesic [place]) 1 kelsie PRN QID PRN TP MUSCLE PAIN; Start 09/03/18 at 18:30 Al Hydroxide/Mg Hydroxide (Mylanta Plus Xs) 15 ml PRN AFTMEALHC PRN PO DYSPEPSIA; Start 09/03/18 at 18:30 Magnesium Hydroxide (Milk Of Magnesia) 2,400 mg PRN QHS PRN PO CONSTIPATION; Start 09/03/18 at 18:30 Trazodone HCl (Desyrel) 25 mg 1X ONCE PO Last administered on 09/04/18 13:19; Start 09/04/18 at 13:00; Stop 09/04/18 at 13:10; Status DC Trazodone HCl (Desyrel) 25 mg 0900,1700 PO Last administered on 09/06/18 16:52; Start 09/04/18 at 17:00 Divalproex Sodium (Depakote Sprinkles) 125 mg 0900,1700 PO Last administered on 09/06/18 16:52; Start 09/05/18 at 17:00 Active Scripts Active Reported Tylenol (Acetaminophen) 325 Mg Tablet 650 Mg PO PRN Q4HRS PRN NITROGLYCERIN SubLingual (Nitroglycerin) 0.4 Mg Tab.subl 0.4 Mg SL PRN Q5MIN PRN Senna Plus Tablet (Sennosides/Docusate Sodium) 1 Each Tablet 1 Each PO PRN BID PRN Vitamin D3 (Cholecalciferol (Vitamin D3)) 1,000 Unit Tablet 1,000 Unit PO BID Vitamin C (Ascorbic Acid) 500 Mg Tab.chew 500 Mg PO DAILY Multivitamins (Multivitamin) 1 Each Tablet 1 Each PO DAILY Remeron (Mirtazapine) 15 Mg Tablet 7.5 Mg PO QHS Metoprolol Tartrate 25 Mg Tablet 25 Mg PO BID Namenda (Memantine Hcl) 10 Mg Tablet 10 Mg PO BID Melatonin 3 Mg Tablet 6 Mg PO QHS Hydroxyzine Pamoate 50 Mg Capsule 50 Mg PO QID Folic Acid 1 Mg Tablet 1 Tab PO DAILY Eliquis (Apixaban) 5 Mg Tablet 5 Mg PO BID Calcium Carbonate 500 Mg Tablet 500 Mg PO QHS Azelastine Hcl 137 Mcg/0.137 Ml [place].pump 1 Spr NS BID Atorvastatin Calcium 40 Mg Tablet 40 Mg PO QHS Aspirin Ec (Aspirin) 81 Mg Tablet.dr 81 Mg PO DAILY I have reviewed the current psychotropics carefully including drug interactions. Risk benefit ratio favors no change other than as noted in my dictated progress note. Diagnosis: Problems: (1) Anxiety disorder (2) Dementia, vascular, with depression (3) Dementia, vascular, with delusions (4) Dementia in Alzheimer's disease with depression (5) Dementia in Alzheimer's disease with delusions (6) Impulse control disorder NELSON VASQUEZ MD Sep 06, 2018 22:28
[2018-09-07 05:58] VITALS: BP 132/87
[2018-09-07] MEDS: DIVALPROEX 125 MG CAP.SPRINK PO SCH ×3 (08:11→17:22)
[2018-09-07] MEDS: MULTIVITAMIN with MINERAL TABLET. PO SCH ×2 (08:11→13:10)
[2018-09-07] MEDS: CHOLECALCIFEROL (VITAMIN D3) 1,000 UNIT TABLET PO SCH ×3 (08:12→20:02)
[2018-09-07] MEDS: MEMANTINE 10 MG TABLET. PO SCH ×3 (08:12→20:02)
[2018-09-07] MEDS: traZODone 50 MG TABLET. PO SCH ×3 (08:12→17:22)
[2018-09-07] MEDS: METOPROLOL TART IMMED RELEASE 25 MG TABLET PO SCH ×3 (08:12→20:02)
[2018-09-07] MEDS: ASPIRIN ENTERIC COATED 81 MG TABLET.DR. PO SCH ×2 (08:12→13:10)
[2018-09-07] MEDS: APIXABAN 5 MG TABLET. PO SCH ×3 (08:12→20:02)
[2018-09-07] MEDS: ASCORBIC ACID 500 MG TABLET PO SCH ×2 (08:12→13:10)
[2018-09-07] MEDS: FOLIC ACID 1 MG TABLET PO SCH ×2 (08:13→13:10)
[2018-09-07] MEDS: AZELASTINE NASAL SPRAY 30ML BOTTLE. NS SCH ×3 (08:13→20:05)
--- NOTE | 2018-09-07 13:15 | NUR ---
Patient has refused multiple attempts to provide his morning medications. This last time, patient stated 'I don't want any of your pills.' Will non-administer the medications, provide report to MD during rounds, and continue to monitor.
[2018-09-07 16:08] VITALS: BP 106/73
[2018-09-07] MEDS: CALCIUM CARBONATE 500 MG TABLET PO SCH (20:01)
[2018-09-07] MEDS: MIRTAZAPINE 7.5 MG TABLET. PO SCH (20:01)
[2018-09-07] MEDS: ATORVASTATIN CALCIUM 20 MG TABLET PO SCH (20:02)
[2018-09-07] MEDS: MELATONIN 3 MG TABLET PO SCH (20:02)
--- NOTE | 2018-09-07 22:31 | PDOC ---
Exam Note: Hu Note: Please also refer to the separate dictated note~for this date of service dictated separately.~Patient seen individually. Discussed the patient with Nursing staff reviewed the chart.~Reviewed interim history and current functioning. Reviewed vital signs,~Labs/ Radiology~and current medications noted below. Continue current treatment with the changes noted in the dictated addendum note Assessment: Vital Signs: Vital Signs Date Time Temp Pulse Resp B/P (MAP) Pulse Ox O2 Delivery O2 Flow Rate FiO2 09/07/18 20:02 74 106/73 09/07/18 16:08 97.8 16 97 09/05/18 16:15 Room Air I&O Intake and Output 09/07/18 06:59 Intake Total 1200 ml Balance 1200 ml Intake Oral 1200 ml Current Medications: Meds: Current Medications Acetaminophen (Tylenol) 650 mg PRN Q4HRS PRN PO PAIN / TEMP; Start 09/03/18 at 18:15 Calcium Carbonate/ Glycine (Oscal) 500 mg QHS PO Last administered on 09/07/18 20:01; Start 09/03/18 at 21:00 Vitamin D (Vitamin D3) 1,000 unit BID PO Last administered on 09/07/18 20:02; Start 09/03/18 at 21:00 Nitroglycerin (Nitrostat) 0.4 mg PRN Q5MIN PRN SL CHEST PAIN; Start 09/03/18 at 18:15 Senna/Docusate Sodium (Senna Plus) 1 tab PRN BID PRN PO CONSTIPATION; Start 09/03/18 at 18:15 Apixaban (Eliquis) 5 mg BID PO Last administered on 09/07/18 20:02; Start 09/03/18 at 21:00 Ascorbic Acid (Vitamin C) 500 mg DAILY PO Last administered on 09/06/18 08:14; Start 09/04/18 at 09:00 Aspirin (Aspirin Enteric Coated) 81 mg DAILYWBKFT PO Last administered on 09/06/18at 08:12; Start 09/04/18 at 08:00 Atorvastatin Calcium (Lipitor) 40 mg QHS PO Last administered on 09/07/18 20:02; Start 09/03/18 at 21:00 Folic Acid (Folic Acid) 1 mg DAILY PO Last administered on 09/06/18at 08:15; Start 09/04/18 at 09:00 Melatonin 6 mg QHS PO Last administered on 09/07/18 20:02; Start 09/03/18 at 21:00 Memantine (Namenda) 10 mg BID PO Last administered on 09/07/18 20:02; Start 09/03/18 at 21:00 Mirtazapine (Remeron) 7.5 mg QHS PO Last administered on 09/07/18 20:01; Start 09/03/18 at 21:00 Multivitamins/ Calcium (Thera-M Plus) 1 tab DAILY PO Last administered on 09/06/18 08:14; Start 09/04/18 at 09:00 Azelastine HCl (Astelin) 1 spray BID NS Last administered on 09/06/18 19:26; Start 09/03/18 at 21:00 Metoprolol Tartrate (Lopressor) 25 mg BID PO Last administered on 09/07/18 20:02; Start 09/03/18 at 21:00 Quetiapine Fumarate (SEROquel) 25 mg PRN BID PRN PO ANXIETY / AGITATION; Start 09/03/18 at 18:30 Multi-Ingredient Ointment (Analgesic [place]) 1 kelsie PRN QID PRN TP MUSCLE PAIN; Start 09/03/18 at 18:30 Al Hydroxide/Mg Hydroxide (Mylanta Plus Xs) 15 ml PRN AFTMEALHC PRN PO DYSPEPSIA; Start 09/03/18 at 18:30 Magnesium Hydroxide (Milk Of Magnesia) 2,400 mg PRN QHS PRN PO CONSTIPATION; Start 09/03/18 at 18:30 Trazodone HCl (Desyrel) 25 mg 1X ONCE PO Last administered on 09/04/18 13:19; Start 09/04/18 at 13:00; Stop 09/04/18 at 13:10; Status DC Trazodone HCl (Desyrel) 25 mg 0900,1700 PO Last administered on 09/07/18 17:22; Start 09/04/18 at 17:00 Divalproex Sodium (Depakote Sprinkles) 125 mg 0900,1700 PO Last administered on 09/07/18 17:22; Start 09/05/18 at 17:00 Active Scripts Active Reported Tylenol (Acetaminophen) 325 Mg Tablet 650 Mg PO PRN Q4HRS PRN NITROGLYCERIN SubLingual (Nitroglycerin) 0.4 Mg Tab.subl 0.4 Mg SL PRN Q5MIN PRN Senna Plus Tablet (Sennosides/Docusate Sodium) 1 Each Tablet 1 Each PO PRN BID PRN Vitamin D3 (Cholecalciferol (Vitamin D3)) 1,000 Unit Tablet 1,000 Unit PO BID Vitamin C (Ascorbic Acid) 500 Mg Tab.chew 500 Mg PO DAILY Multivitamins (Multivitamin) 1 Each Tablet 1 Each PO DAILY Remeron (Mirtazapine) 15 Mg Tablet 7.5 Mg PO QHS Metoprolol Tartrate 25 Mg Tablet 25 Mg PO BID Namenda (Memantine Hcl) 10 Mg Tablet 10 Mg PO BID Melatonin 3 Mg Tablet 6 Mg PO QHS Hydroxyzine Pamoate 50 Mg Capsule 50 Mg PO QID Folic Acid 1 Mg Tablet 1 Tab PO DAILY Eliquis (Apixaban) 5 Mg Tablet 5 Mg PO BID Calcium Carbonate 500 Mg Tablet 500 Mg PO QHS Azelastine Hcl 137 Mcg/0.137 Ml [place].pump 1 Spr NS BID Atorvastatin Calcium 40 Mg Tablet 40 Mg PO QHS Aspirin Ec (Aspirin) 81 Mg Tablet.dr 81 Mg PO DAILY I have reviewed the current psychotropics carefully including drug interactions. Risk benefit ratio favors no change other than as noted in my dictated progress note. Diagnosis: Problems: (1) Anxiety disorder (2) Dementia, vascular, with depression (3) Dementia, vascular, with delusions (4) Dementia in Alzheimer's disease with depression (5) Dementia in Alzheimer's disease with delusions (6) Impulse control disorder NELSON VASQUEZ MD Sep 07, 2018 22:31
--- NOTE | 2018-09-08 03:02 | NUR ---
Nursing Note Pt compliant and cooperative this pm. No behaviors this pm.
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
[2018-09-08 06:12] VITALS: BP 113/82
--- NOTE | 2018-09-08 07:02 | PN ---
DATE: 09/06/2018 PSYCHIATRIC PROGRESS NOTE This late entry 09/06/2018 covers elements not covered in my initial note. SUBJECTIVE: I met with the patient in the evening of 09/06/2018. The patient slept 6-1/4 hours previous night. He has been calm, pleasant, interactive. REVIEW OF SYSTEMS: No CV, , pulmonary, eye, ENT system symptoms on review. Reliability poor. MENTAL STATUS EXAM: Oriented to himself. Insight, judgment, recent and remote memory, attention, concentration, fund of knowledge poor, consistent with his diagnosis mentioned in my initial note. PLAN: No change from initial note. MAN Brinda VASQUEZ MD DR: OBDULIA/rosa elena JOB#: [id number] / [id number]
[2018-09-08 07:28] LABS: BASO % 0 % (0-3); EOS # 0.1 x10^3/uL (0.0-0.7); EOS % 2 % (0-3); HEMATOCRIT 33.9 % (39.0-53.0); HEMOGLOBIN 11.2 g/dL (13.0-17.5); LYMPH # 1.5 x10^3/uL (1.0-4.8); LYMPH % 19 % (24-48); MEAN CORPUSCULAR HEMOGLOBIN 30 pg (25-35); MEAN CORPUSCULAR HGB CONC 33 g/dL (31-37); MEAN CORPUSCULAR VOLUME 89 fL (79-100); MONO # 0.6 x10^3/uL (0.0-1.1); MONO % 8 % (0-9); NEUT # 5.7 x10^3uL (1.8-7.7); NEUT % 72 % (31-73); PLATELET COUNT 262 x10^3/uL (140-400); RED BLOOD COUNT 3.81 x10^6/uL (4.30-5.70); RED CELL DISTRIBUTION WIDTH 14.5 % (11.5-14.5); WHITE BLOOD COUNT 7.9 x10^3/uL (4.0-11.0)
--- NOTE | 2018-09-08 08:03 | PN ---
DATE: 09/07/2018 PSYCHIATRIC PROGRESS NOTE This note covers elements not covered in my initial note 09/07/2018. SUBJECTIVE: I met with the patient in the evening. The patient slept 6-1/4 hours previous night. He refused his a.m. medications, took them in the evening. Nursing staff will make sure he gets his Eliquis for atrial fibrillation. He remains confused, tangential. REVIEW OF SYSTEMS: No CV, , pulmonary, eye, ENT system symptoms on review. Reliability poor. MENTAL STATUS EXAM: Oriented to himself. Insight, judgment, recent and remote memory, attention, concentration, fund of knowledge poor, consistent with his diagnosis mentioned in my initial note. PLAN: No change from initial note. MAN Brinda VASQUEZ MD DR: OBDULIA/rosa elena JOB#: [id number] / [id number]
[2018-09-08] MEDS: FOLIC ACID 1 MG TABLET PO SCH ×2 (08:11→09:00)
[2018-09-08] MEDS: MEMANTINE 10 MG TABLET. PO SCH ×2 (08:11→19:27)
[2018-09-08] MEDS: CHOLECALCIFEROL (VITAMIN D3) 1,000 UNIT TABLET PO SCH ×3 (08:11→19:27)
[2018-09-08] MEDS: ASPIRIN ENTERIC COATED 81 MG TABLET.DR. PO SCH (08:11)
[2018-09-08] MEDS: METOPROLOL TART IMMED RELEASE 25 MG TABLET PO SCH ×2 (08:12→19:27)
[2018-09-08] MEDS: DIVALPROEX 125 MG CAP.SPRINK PO SCH ×2 (08:12→17:04)
[2018-09-08] MEDS: ASCORBIC ACID 500 MG TABLET PO SCH ×2 (08:12→09:00)
[2018-09-08] MEDS: MULTIVITAMIN with MINERAL TABLET. PO SCH ×2 (08:12→09:00)
[2018-09-08] MEDS: APIXABAN 5 MG TABLET. PO SCH ×3 (08:12→19:27)
[2018-09-08] MEDS: traZODone 50 MG TABLET. PO SCH ×2 (08:12→17:04)
[2018-09-08] MEDS: AZELASTINE NASAL SPRAY 30ML BOTTLE. NS SCH ×3 (08:13→19:29)
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
[2018-09-08] MEDS: QUEtiapine 25 MG TABLET. PO PRN (09:41)
[2018-09-08 15:57] VITALS: BP 124/83
[2018-09-08] MEDS: CALCIUM CARBONATE 500 MG TABLET PO SCH (19:26)
[2018-09-08] MEDS: MELATONIN 3 MG TABLET PO SCH (19:27)
[2018-09-08] MEDS: ATORVASTATIN CALCIUM 20 MG TABLET PO SCH (19:27)
[2018-09-08] MEDS: MIRTAZAPINE 7.5 MG TABLET. PO SCH (19:27)
--- NOTE | 2018-09-08 22:17 | PDOC ---
Exam Note: Hu Note: Please also refer to the separate dictated note~for this date of service dictated separately.~Patient seen individually. Discussed the patient with Nursing staff reviewed the chart.~Reviewed interim history and current functioning. Reviewed vital signs,~Labs/ Radiology~and current medications noted below. Continue current treatment with the changes noted in the dictated addendum note Assessment: Vital Signs: Vital Signs Date Time Temp Pulse Resp B/P (MAP) Pulse Ox O2 Delivery O2 Flow Rate FiO2 09/08/18 19:27 77 124/83 09/08/18 15:57 97.0 18 94 09/05/18 16:15 Room Air I&O Intake and Output 09/08/18 07:00 Intake Total 920 ml Balance 920 ml Intake Oral 920 ml Labs: Laboratory Tests Test 09/08/18 06:40 White Blood Count 7.9 x10^3/uL (4.0-11.0) Red Blood Count 3.81 x10^6/uL (4.30-5.70) L Hemoglobin 11.2 g/dL (13.0-17.5) L Hematocrit 33.9 % (39.0-53.0) L Mean Corpuscular Volume 89 fL (79-100) Mean Corpuscular Hemoglobin 30 pg (25-35) Mean Corpuscular Hemoglobin Concent 33 g/dL (31-37) Red Cell Distribution Width 14.5 % (11.5-14.5) Platelet Count 262 x10^3/uL (140-400) Neutrophils (%) (Auto) 72 % (31-73) Lymphocytes (%) (Auto) 19 % (24-48) L Monocytes (%) (Auto) 8 % (0-9) Eosinophils (%) (Auto) 2 % (0-3) Basophils (%) (Auto) 0 % (0-3) Neutrophils # (Auto) 5.7 x10^3uL (1.8-7.7) Lymphocytes # (Auto) 1.5 x10^3/uL (1.0-4.8) Monocytes # (Auto) 0.6 x10^3/uL (0.0-1.1) Eosinophils # (Auto) 0.1 x10^3/uL (0.0-0.7) Basophils # (Auto) 0.0 x10^3/uL (0.0-0.2) Current Medications: Meds: Current Medications Acetaminophen (Tylenol) 650 mg PRN Q4HRS PRN PO PAIN / TEMP; Start 09/03/18 at 18:15 Calcium Carbonate/ Glycine (Oscal) 500 mg QHS PO Last administered on 09/08/18 19:26; Start 09/03/18 at 21:00 Vitamin D (Vitamin D3) 1,000 unit BID PO Last administered on 09/08/18 19:27; Start 09/03/18 at 21:00 Nitroglycerin (Nitrostat) 0.4 mg PRN Q5MIN PRN SL CHEST PAIN; Start 09/03/18 at 18:15 Senna/Docusate Sodium (Senna Plus) 1 tab PRN BID PRN PO CONSTIPATION; Start 09/03/18 at 18:15 Apixaban (Eliquis) 5 mg BID PO Last administered on 09/08/18 19:27; Start 09/03/18 at 21:00 Ascorbic Acid (Vitamin C) 500 mg DAILY PO Last administered on 09/06/18 08:14; Start 09/04/18 at 09:00 Aspirin (Aspirin Enteric Coated) 81 mg DAILYWBKFT PO Last administered on 09/08/18 08:11; Start 09/04/18 at 08:00 Atorvastatin Calcium (Lipitor) 40 mg QHS PO Last administered on 09/08/18 19:27; Start 09/03/18 at 21:00 Folic Acid (Folic Acid) 1 mg DAILY PO Last administered on 09/06/18 08:15; Start 09/04/18 at 09:00 Melatonin 6 mg QHS PO Last administered on 09/08/18 19:27; Start 09/03/18 at 21:00 Memantine (Namenda) 10 mg BID PO Last administered on 09/08/18 19:27; Start 09/03/18 at 21:00 Mirtazapine (Remeron) 7.5 mg QHS PO Last administered on 09/08/18 19:27; Start 09/03/18 at 21:00 Multivitamins/ Calcium (Thera-M Plus) 1 tab DAILY PO Last administered on 09/06/18 08:14; Start 09/04/18 at 09:00 Azelastine HCl (Astelin) 1 spray BID NS Last administered on 09/08/18 19:29; Start 09/03/18 at 21:00 Metoprolol Tartrate (Lopressor) 25 mg BID PO Last administered on 09/08/18 19:27; Start 09/03/18 at 21:00 Quetiapine Fumarate (SEROquel) 25 mg PRN BID PRN PO ANXIETY / AGITATION Last administered on 09/08/18 09:41; Start 09/03/18 at 18:30 Multi-Ingredient Ointment (Analgesic [place]) 1 kelsie PRN QID PRN TP MUSCLE PAIN; Start 09/03/18 at 18:30 Al Hydroxide/Mg Hydroxide (Mylanta Plus Xs) 15 ml PRN AFTMEALHC PRN PO DYSPEPSIA; Start 09/03/18 at 18:30 Magnesium Hydroxide (Milk Of Magnesia) 2,400 mg PRN QHS PRN PO CONSTIPATION; Start 09/03/18 at 18:30 Trazodone HCl (Desyrel) 25 mg 1X ONCE PO Last administered on 09/04/18at 13:19; Start 09/04/18 at 13:00; Stop 09/04/18 at 13:10; Status DC Trazodone HCl (Desyrel) 25 mg 0900,1700 PO Last administered on 09/08/18 17:04; Start 09/04/18 at 17:00 Divalproex Sodium (Depakote Sprinkles) 125 mg 0900,1700 PO Last administered on 09/08/18 17:04; Start 09/05/18 at 17:00 Active Scripts Active Reported Tylenol (Acetaminophen) 325 Mg Tablet 650 Mg PO PRN Q4HRS PRN NITROGLYCERIN SubLingual (Nitroglycerin) 0.4 Mg Tab.subl 0.4 Mg SL PRN Q5MIN PRN Senna Plus Tablet (Sennosides/Docusate Sodium) 1 Each Tablet 1 Each PO PRN BID PRN Vitamin D3 (Cholecalciferol (Vitamin D3)) 1,000 Unit Tablet 1,000 Unit PO BID Vitamin C (Ascorbic Acid) 500 Mg Tab.chew 500 Mg PO DAILY Multivitamins (Multivitamin) 1 Each Tablet 1 Each PO DAILY Remeron (Mirtazapine) 15 Mg Tablet 7.5 Mg PO QHS Metoprolol Tartrate 25 Mg Tablet 25 Mg PO BID Namenda (Memantine Hcl) 10 Mg Tablet 10 Mg PO BID Melatonin 3 Mg Tablet 6 Mg PO QHS Hydroxyzine Pamoate 50 Mg Capsule 50 Mg PO QID Folic Acid 1 Mg Tablet 1 Tab PO DAILY Eliquis (Apixaban) 5 Mg Tablet 5 Mg PO BID Calcium Carbonate 500 Mg Tablet 500 Mg PO QHS Azelastine Hcl 137 Mcg/0.137 Ml [place].pump 1 Spr NS BID Atorvastatin Calcium 40 Mg Tablet 40 Mg PO QHS Aspirin Ec (Aspirin) 81 Mg Tablet.dr 81 Mg PO DAILY I have reviewed the current psychotropics carefully including drug interactions. Risk benefit ratio favors no change other than as noted in my dictated progress note. Diagnosis: Problems: (1) Anxiety disorder (2) Dementia, vascular, with depression (3) Dementia, vascular, with delusions (4) Dementia in Alzheimer's disease with depression (5) Dementia in Alzheimer's disease with delusions (6) Impulse control disorder NELSON VASQUEZ MD Sep 08, 2018 22:17
--- NOTE | 2018-09-08 22:20 | NUR ---
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 Many of them are now gone but he talks about them dropping many local names from [place] and [place]. Smiling while reminiscing about old times.
[2018-09-09 05:38] VITALS: BP 119/83
[2018-09-09] MEDS: traZODone 50 MG TABLET. PO SCH ×2 (09:08→17:17)
[2018-09-09] MEDS: FOLIC ACID 1 MG TABLET PO SCH (09:08)
[2018-09-09] MEDS: ASPIRIN ENTERIC COATED 81 MG TABLET.DR. PO SCH (09:08)
[2018-09-09] MEDS: DIVALPROEX 125 MG CAP.SPRINK PO SCH ×2 (09:08→17:16)
[2018-09-09] MEDS: MULTIVITAMIN with MINERAL TABLET. PO SCH (09:09)
[2018-09-09] MEDS: AZELASTINE NASAL SPRAY 30ML BOTTLE. NS SCH ×2 (09:09→19:48)
[2018-09-09] MEDS: APIXABAN 5 MG TABLET. PO SCH ×2 (09:09→19:46)
[2018-09-09] MEDS: MEMANTINE 10 MG TABLET. PO SCH ×2 (09:09→19:45)
[2018-09-09] MEDS: ASCORBIC ACID 500 MG TABLET PO SCH (09:09)
[2018-09-09] MEDS: METOPROLOL TART IMMED RELEASE 25 MG TABLET PO SCH ×2 (09:09→19:46)
[2018-09-09] MEDS: CHOLECALCIFEROL (VITAMIN D3) 1,000 UNIT TABLET PO SCH ×2 (09:09→19:46)
[2018-09-09 09:36] LABS: BASO % 1 % (0-3); EOS # 0.2 x10^3/uL (0.0-0.7); EOS % 2 % (0-3); HEMOGLOBIN 11.9 g/dL (13.0-17.5); LYMPH # 1.9 x10^3/uL (1.0-4.8); LYMPH % 22 % (24-48); MEAN CORPUSCULAR HEMOGLOBIN 29 pg (25-35); MEAN CORPUSCULAR HGB CONC 32 g/dL (31-37); MEAN CORPUSCULAR VOLUME 91 fL (79-100); MONO # 0.6 x10^3/uL (0.0-1.1); MONO % 7 % (0-9); NEUT # 5.7 x10^3uL (1.8-7.7); NEUT % 69 % (31-73); PLATELET COUNT 280 x10^3/uL (140-400); RED BLOOD COUNT 4.09 x10^6/uL (4.30-5.70); RED CELL DISTRIBUTION WIDTH 14.7 % (11.5-14.5); WHITE BLOOD COUNT 8.4 x10^3/uL (4.0-11.0)
[2018-09-09 09:51] LABS: ALBUMIN 3.4 g/dL (3.4-5.0); ALBUMIN/GLOBULIN RATIO 1.1 (1.0-1.7); ALK PHOS 100 U/L (46-116); ALT (SGPT) 17 U/L (16-63); ANION GAP 7 (6-14); AST (SGOT) 32 U/L (15-37); BLOOD UREA NITROGEN 18 mg/dL (8-26); BUN/CREATININE RATIO 16 (6-20); CALCIUM 9.5 mg/dL (8.5-10.1); CARBON DIOXIDE 31 mmol/L (21-32); CHLORIDE 106 mmol/L (98-107); CREATININE 1.1 mg/dL (0.7-1.3); GFR 64.9; GLUCOSE 94 mg/dL (70-99); POTASSIUM 4.4 mmol/L (3.5-5.1); SODIUM 144 mmol/L (136-145); TOTAL BILIRUBIN 0.5 mg/dL (0.2-1.0); TOTAL PROTEIN 6.6 g/dL (6.4-8.2)
[2018-09-09 10:00] LABS: VAL ACID 17 mcg/mL (50-100)
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
[2018-09-09 16:22] VITALS: BP 98/63
[2018-09-09] MEDS: MELATONIN 3 MG TABLET PO SCH (19:46)
[2018-09-09] MEDS: ATORVASTATIN CALCIUM 20 MG TABLET PO SCH (19:46)
[2018-09-09] MEDS: CALCIUM CARBONATE 500 MG TABLET PO SCH (19:46)
[2018-09-09] MEDS: MIRTAZAPINE 7.5 MG TABLET. PO SCH (19:47)
[2018-09-09] MEDS: risperiDONE 0.25 MG TABLET. PO SCH (19:48)
--- NOTE | 2018-09-09 21:31 | NUR ---
Assumed care of patient in the day room, sitting quietly watching TV. Pleasant when approached. Confused but interactive. Compliant with meds and cares. Pt wandering, door checking at times. Easily redirects.
--- NOTE | 2018-09-09 22:32 | PDOC ---
Exam Note: Hu Note: Please also refer to the separate dictated note~for this date of service dictated separately.~Patient seen individually. Discussed the patient with Nursing staff reviewed the chart.~Reviewed interim history and current functioning. Reviewed vital signs,~Labs/ Radiology~and current medications noted below. Continue current treatment with the changes noted in the dictated addendum note Assessment: Vital Signs: Vital Signs Date Time Temp Pulse Resp B/P (MAP) Pulse Ox O2 Delivery O2 Flow Rate FiO2 09/09/18 19:46 80 98/63 09/09/18 16:22 98.6 20 98 09/05/18 16:15 Room Air I&O Intake and Output 09/09/18 06:59 Intake Total 1380 ml Balance 1380 ml Intake Oral 1380 ml # Voids 1 Labs: Laboratory Tests Test 09/09/18 09:26 White Blood Count 8.4 x10^3/uL (4.0-11.0) Red Blood Count 4.09 x10^6/uL (4.30-5.70) L Hemoglobin 11.9 g/dL (13.0-17.5) L Hematocrit 37.0 % (39.0-53.0) L Mean Corpuscular Volume 91 fL (79-100) Mean Corpuscular Hemoglobin 29 pg (25-35) Mean Corpuscular Hemoglobin Concent 32 g/dL (31-37) Red Cell Distribution Width 14.7 % (11.5-14.5) H Platelet Count 280 x10^3/uL (140-400) Neutrophils (%) (Auto) 69 % (31-73) Lymphocytes (%) (Auto) 22 % (24-48) L Monocytes (%) (Auto) 7 % (0-9) Eosinophils (%) (Auto) 2 % (0-3) Basophils (%) (Auto) 1 % (0-3) Neutrophils # (Auto) 5.7 x10^3uL (1.8-7.7) Lymphocytes # (Auto) 1.9 x10^3/uL (1.0-4.8) Monocytes # (Auto) 0.6 x10^3/uL (0.0-1.1) Eosinophils # (Auto) 0.2 x10^3/uL (0.0-0.7) Basophils # (Auto) 0.0 x10^3/uL (0.0-0.2) Sodium Level 144 mmol/L (136-145) Potassium Level 4.4 mmol/L (3.5-5.1) Chloride Level 106 mmol/L (98-107) Carbon Dioxide Level 31 mmol/L (21-32) Anion Gap 7 (6-14) Blood Urea Nitrogen 18 mg/dL (8-26) Creatinine 1.1 mg/dL (0.7-1.3) Estimated GFR (Cockcroft-Gault) 64.9 BUN/Creatinine Ratio 16 (6-20) Glucose Level 94 mg/dL (70-99) Calcium Level 9.5 mg/dL (8.5-10.1) Total Bilirubin 0.5 mg/dL (0.2-1.0) Aspartate Amino Transferase (AST) 32 U/L (15-37) Alanine Aminotransferase (ALT) 17 U/L (16-63) Alkaline Phosphatase 100 U/L (46-116) Total Protein 6.6 g/dL (6.4-8.2) Albumin 3.4 g/dL (3.4-5.0) Albumin/Globulin Ratio 1.1 (1.0-1.7) Valproic Acid Level 17 mcg/mL (50-100) L Valproic Acid Last Dose Date 09/08/18 Valproic Acid Last Dose Time 1700 Current Medications: Meds: Current Medications Acetaminophen (Tylenol) 650 mg PRN Q4HRS PRN PO PAIN / TEMP; Start 09/03/18 at 18:15 Calcium Carbonate/ Glycine (Oscal) 500 mg QHS PO Last administered on 09/09/18at 19:46; Start 09/03/18 at 21:00 Vitamin D (Vitamin D3) 1,000 unit BID PO Last administered on 09/09/18at 19:46; Start 09/03/18 at 21:00 Nitroglycerin (Nitrostat) 0.4 mg PRN Q5MIN PRN SL CHEST PAIN; Start 09/03/18 at 18:15 Senna/Docusate Sodium (Senna Plus) 1 tab PRN BID PRN PO CONSTIPATION; Start 09/03/18 at 18:15 Apixaban (Eliquis) 5 mg BID PO Last administered on 09/09/18at 19:46; Start 09/03/18 at 21:00 Ascorbic Acid (Vitamin C) 500 mg DAILY PO Last administered on 09/09/18 09:09; Start 09/04/18 at 09:00 Aspirin (Aspirin Enteric Coated) 81 mg DAILYWBKFT PO Last administered on 09/09/18 09:08; Start 09/04/18 at 08:00 Atorvastatin Calcium (Lipitor) 40 mg QHS PO Last administered on 09/09/18 19:46; Start 09/03/18 at 21:00 Folic Acid (Folic Acid) 1 mg DAILY PO Last administered on 09/09/18 09:08; Start 09/04/18 at 09:00 Melatonin 6 mg QHS PO Last administered on 09/09/18 19:46; Start 09/03/18 at 21:00 Memantine (Namenda) 10 mg BID PO Last administered on 09/09/18 19:45; Start 09/03/18 at 21:00 Mirtazapine (Remeron) 7.5 mg QHS PO Last administered on 09/09/18 19:47; Start 09/03/18 at 21:00 Multivitamins/ Calcium (Thera-M Plus) 1 tab DAILY PO Last administered on 09/09/18 09:09; Start 09/04/18 at 09:00 Azelastine HCl (Astelin) 1 spray BID NS Last administered on 09/09/18 19:48; Start 09/03/18 at 21:00 Metoprolol Tartrate (Lopressor) 25 mg BID PO Last administered on 09/09/18 09:09; Start 09/03/18 at 21:00 Quetiapine Fumarate (SEROquel) 25 mg PRN BID PRN PO ANXIETY / AGITATION Last administered on 09/08/18 09:41; Start 09/03/18 at 18:30 Multi-Ingredient Ointment (Analgesic [place]) 1 kelsie PRN QID PRN TP MUSCLE PAIN; Start 09/03/18 at 18:30 Al Hydroxide/Mg Hydroxide (Mylanta Plus Xs) 15 ml PRN AFTMEALHC PRN PO DYSPEPSIA; Start 09/03/18 at 18:30 Magnesium Hydroxide (Milk Of Magnesia) 2,400 mg PRN QHS PRN PO CONSTIPATION; Start 09/03/18 at 18:30 Trazodone HCl (Desyrel) 25 mg 1X ONCE PO Last administered on 09/04/18at 13:19; Start 09/04/18 at 13:00; Stop 09/04/18 at 13:10; Status DC Trazodone HCl (Desyrel) 25 mg 0900,1700 PO Last administered on 09/09/18at 17:17; Start 09/04/18 at 17:00 Divalproex Sodium (Depakote Sprinkles) 125 mg 0900,1700 PO Last administered on 09/09/18at 17:16; Start 09/05/18 at 17:00 Risperidone (RisperDAL) 0.125 mg QHS PO Last administered on 09/09/18at 19:48; Start 09/09/18 at 21:00 Active Scripts Active Reported Tylenol (Acetaminophen) 325 Mg Tablet 650 Mg PO PRN Q4HRS PRN NITROGLYCERIN SubLingual (Nitroglycerin) 0.4 Mg Tab.subl 0.4 Mg SL PRN Q5MIN PRN Senna Plus Tablet (Sennosides/Docusate Sodium) 1 Each Tablet 1 Each PO PRN BID PRN Vitamin D3 (Cholecalciferol (Vitamin D3)) 1,000 Unit Tablet 1,000 Unit PO BID Vitamin C (Ascorbic Acid) 500 Mg Tab.chew 500 Mg PO DAILY Multivitamins (Multivitamin) 1 Each Tablet 1 Each PO DAILY Remeron (Mirtazapine) 15 Mg Tablet 7.5 Mg PO QHS Metoprolol Tartrate 25 Mg Tablet 25 Mg PO BID Namenda (Memantine Hcl) 10 Mg Tablet 10 Mg PO BID Melatonin 3 Mg Tablet 6 Mg PO QHS Hydroxyzine Pamoate 50 Mg Capsule 50 Mg PO QID Folic Acid 1 Mg Tablet 1 Tab PO DAILY Eliquis (Apixaban) 5 Mg Tablet 5 Mg PO BID Calcium Carbonate 500 Mg Tablet 500 Mg PO QHS Azelastine Hcl 137 Mcg/0.137 Ml [place].pump 1 Spr NS BID Atorvastatin Calcium 40 Mg Tablet 40 Mg PO QHS Aspirin Ec (Aspirin) 81 Mg Tablet.dr 81 Mg PO DAILY I have reviewed the current psychotropics carefully including drug interactions. Risk benefit ratio favors no change other than as noted in my dictated progress note. Diagnosis: Problems: (1) Anxiety disorder (2) Dementia, vascular, with depression (3) Dementia, vascular, with delusions (4) Dementia in Alzheimer's disease with depression (5) Dementia in Alzheimer's disease with delusions (6) Impulse control disorder NELSON VASQUEZ MD Sep 09, 2018 22:32
--- NOTE | 2018-09-10 02:49 | PN ---
DATE: 09/08/2018 PSYCHIATRIC PROGRESS NOTE This late entry 09/08/2018 covers elements not covered in my initial note. SUBJECTIVE: I met with the patient in the evening. The patient slept 6-1/2 hours previous night. He is quite resistive in the morning. Per nursing report, wandering, disorganized better as the day has gone on. He refused his a.m. medications, took them later whole and had taken them whole the previous night. We will be checking valproic acid level since none is in the chart since we have increased the Depakote. REVIEW OF SYSTEMS: No CV, , pulmonary, eye, ENT system symptoms on review. Reliability poor. MENTAL STATUS EXAM: Oriented to himself. Insight, judgment, recent and remote memory, attention, concentration, fund of knowledge poor consistent with his diagnosis mentioned in my initial note. PLAN: No change from initial note, but check the valproic acid level, adjust Depakote thereafter. NELSON VASQUEZ MD DR: OBDULIA/rosa elena JOB#: [id number] / [id number]
[2018-09-10 05:47] VITALS: BP 111/76
[2018-09-10] MEDS: traZODone 50 MG TABLET. PO SCH ×2 (09:13→17:00)
[2018-09-10] MEDS: MEMANTINE 10 MG TABLET. PO SCH ×2 (09:14→19:34)
[2018-09-10] MEDS: APIXABAN 5 MG TABLET. PO SCH ×2 (09:14→19:34)
[2018-09-10] MEDS: ASCORBIC ACID 500 MG TABLET PO SCH (09:14)
[2018-09-10] MEDS: AZELASTINE NASAL SPRAY 30ML BOTTLE. NS SCH ×2 (09:14→19:34)
[2018-09-10] MEDS: METOPROLOL TART IMMED RELEASE 25 MG TABLET PO SCH ×2 (09:14→19:33)
[2018-09-10] MEDS: MULTIVITAMIN with MINERAL TABLET. PO SCH (09:14)
[2018-09-10] MEDS: CHOLECALCIFEROL (VITAMIN D3) 1,000 UNIT TABLET PO SCH ×2 (09:14→19:33)
[2018-09-10] MEDS: DIVALPROEX 125 MG CAP.SPRINK PO SCH ×2 (09:14→17:00)
[2018-09-10] MEDS: FOLIC ACID 1 MG TABLET PO SCH (09:14)
[2018-09-10] MEDS: ASPIRIN ENTERIC COATED 81 MG TABLET.DR. PO SCH (09:14)
--- NOTE | 2018-09-10 12:58 | NUR ---
Patient was sitting in the day room at the table. He was confused with the medicine cup at first but then remembered to dump medications in his hand. He was medication compliant and took them whole with water. He currently is alert to self and birthdate only. He is unaware of where he is and why he is here. He is calm, cooperative and pleasant. He has not had any combative or agitated behaviors.
[2018-09-10 16:34] VITALS: BP 90/60
[2018-09-10] MEDS: ATORVASTATIN CALCIUM 20 MG TABLET PO SCH (19:32)
[2018-09-10] MEDS: CALCIUM CARBONATE 500 MG TABLET PO SCH (19:33)
[2018-09-10] MEDS: MIRTAZAPINE 7.5 MG TABLET. PO SCH (19:34)
[2018-09-10] MEDS: risperiDONE 0.25 MG TABLET. PO SCH (19:34)
[2018-09-10] MEDS: MELATONIN 3 MG TABLET PO SCH (19:34)
--- NOTE | 2018-09-10 21:54 | NUR ---
Pt. this evening was walking back and forth in the quiet hallway, trying to open the doors. He was just trying to open the doors, but was easily redirected and was not combative. He needed a lot of encouragement with taking his HS medications. The first few he did take whole he did fine with taking them. The next few he spit them out, so this sql report writer crushed them in pudding and he did fine with it.
--- NOTE | 2018-09-10 22:32 | PDOC ---
Exam Note: Hu Note: Please also refer to the separate dictated note~for this date of service dictated separately.~Patient seen individually. Discussed the patient with Nursing staff reviewed the chart.~Reviewed interim history and current functioning. Reviewed vital signs,~Labs/ Radiology~and current medications noted below. Continue current treatment with the changes noted in the dictated addendum note Assessment: Vital Signs: Vital Signs Date Time Temp Pulse Resp B/P (MAP) Pulse Ox O2 Delivery O2 Flow Rate FiO2 09/10/18 19:33 84 133/85 09/10/18 16:34 98.4 16 94 09/05/18 16:15 Room Air I&O Intake and Output 09/10/18 06:59 Intake Total 1620 ml Balance 1620 ml Intake Oral 1620 ml # Voids 1 Current Medications: Meds: Current Medications Acetaminophen (Tylenol) 650 mg PRN Q4HRS PRN PO PAIN / TEMP; Start 09/03/18 at 18:15 Calcium Carbonate/ Glycine (Oscal) 500 mg QHS PO Last administered on 09/10/18 19:33; Start 09/03/18 at 21:00 Vitamin D (Vitamin D3) 1,000 unit BID PO Last administered on 09/10/18 19:33; Start 09/03/18 at 21:00 Nitroglycerin (Nitrostat) 0.4 mg PRN Q5MIN PRN SL CHEST PAIN; Start 09/03/18 at 18:15 Senna/Docusate Sodium (Senna Plus) 1 tab PRN BID PRN PO CONSTIPATION; Start 09/03/18 at 18:15 Apixaban (Eliquis) 5 mg BID PO Last administered on 09/10/18 19:34; Start 09/03/18 at 21:00 Ascorbic Acid (Vitamin C) 500 mg DAILY PO Last administered on 09/10/18 09:14; Start 09/04/18 at 09:00 Aspirin (Aspirin Enteric Coated) 81 mg DAILYWBKFT PO Last administered on 09/10/18 09:14; Start 09/04/18 at 08:00 Atorvastatin Calcium (Lipitor) 40 mg QHS PO Last administered on 09/10/18 19:32; Start 09/03/18 at 21:00 Folic Acid (Folic Acid) 1 mg DAILY PO Last administered on 09/10/18 09:14; Start 09/04/18 at 09:00 Melatonin 6 mg QHS PO Last administered on 09/10/18 19:34; Start 09/03/18 at 21:00 Memantine (Namenda) 10 mg BID PO Last administered on 09/10/18 19:34; Start 09/03/18 at 21:00 Mirtazapine (Remeron) 7.5 mg QHS PO Last administered on 09/10/18 19:34; Start 09/03/18 at 21:00 Multivitamins/ Calcium (Thera-M Plus) 1 tab DAILY PO Last administered on 09/10/18 09:14; Start 09/04/18 at 09:00 Azelastine HCl (Astelin) 1 spray BID NS Last administered on 09/10/18 19:34; Start 09/03/18 at 21:00 Metoprolol Tartrate (Lopressor) 25 mg BID PO Last administered on 09/10/18 19:33; Start 09/03/18 at 21:00 Quetiapine Fumarate (SEROquel) 25 mg PRN BID PRN PO ANXIETY / AGITATION Last administered on 09/08/18 09:41; Start 09/03/18 at 18:30 Multi-Ingredient Ointment (Analgesic [place]) 1 kelsie PRN QID PRN TP MUSCLE PAIN; Start 09/03/18 at 18:30 Al Hydroxide/Mg Hydroxide (Mylanta Plus Xs) 15 ml PRN AFTMEALHC PRN PO DYSPEPSIA; Start 09/03/18 at 18:30 Magnesium Hydroxide (Milk Of Magnesia) 2,400 mg PRN QHS PRN PO CONSTIPATION; Start 09/03/18 at 18:30 Trazodone HCl (Desyrel) 25 mg 1X ONCE PO Last administered on 09/04/18 13:19; Start 09/04/18 at 13:00; Stop 09/04/18 at 13:10; Status DC Trazodone HCl (Desyrel) 25 mg 0900,1700 PO Last administered on 09/10/18 17:00; Start 09/04/18 at 17:00 Divalproex Sodium (Depakote Sprinkles) 125 mg 0900,1700 PO Last administered on 09/10/18 17:00; Start 09/05/18 at 17:00 Risperidone (RisperDAL) 0.125 mg QHS PO Last administered on 09/10/18at 19:34; Start 09/09/18 at 21:00 Active Scripts Active Reported Tylenol (Acetaminophen) 325 Mg Tablet 650 Mg PO PRN Q4HRS PRN NITROGLYCERIN SubLingual (Nitroglycerin) 0.4 Mg Tab.subl 0.4 Mg SL PRN Q5MIN PRN Senna Plus Tablet (Sennosides/Docusate Sodium) 1 Each Tablet 1 Each PO PRN BID PRN Vitamin D3 (Cholecalciferol (Vitamin D3)) 1,000 Unit Tablet 1,000 Unit PO BID Vitamin C (Ascorbic Acid) 500 Mg Tab.chew 500 Mg PO DAILY Multivitamins (Multivitamin) 1 Each Tablet 1 Each PO DAILY Remeron (Mirtazapine) 15 Mg Tablet 7.5 Mg PO QHS Metoprolol Tartrate 25 Mg Tablet 25 Mg PO BID Namenda (Memantine Hcl) 10 Mg Tablet 10 Mg PO BID Melatonin 3 Mg Tablet 6 Mg PO QHS Hydroxyzine Pamoate 50 Mg Capsule 50 Mg PO QID Folic Acid 1 Mg Tablet 1 Tab PO DAILY Eliquis (Apixaban) 5 Mg Tablet 5 Mg PO BID Calcium Carbonate 500 Mg Tablet 500 Mg PO QHS Azelastine Hcl 137 Mcg/0.137 Ml [place].pump 1 Spr NS BID Atorvastatin Calcium 40 Mg Tablet 40 Mg PO QHS Aspirin Ec (Aspirin) 81 Mg Tablet. 81 Mg PO DAILY I have reviewed the current psychotropics carefully including drug interactions. Risk benefit ratio favors no change other than as noted in my dictated progress note. Diagnosis: Problems: (1) Anxiety disorder (2) Dementia, vascular, with depression (3) Dementia, vascular, with delusions (4) Dementia in Alzheimer's disease with depression (5) Dementia in Alzheimer's disease with delusions (6) Impulse control disorder NELSON VASQUEZ MD Sep 10, 2018 22:32
--- NOTE | 2018-09-11 04:35 | PN ---
DATE: 09/09/2018 PSYCHIATRIC PROGRESS NOTE This late entry 09/09/2018 covers elements not covered in my initial note of 09/09/2018. The patient slept 6-1/2 hours previous night. He remains confused, but not aggressive. He showed no behaviors until 3 p.m. and then was walking in his T shirt only, no pants or briefs. When nursing staff asked him the reason for this, he pointed to the corner of the room and said "that girl told me to." REVIEW OF SYSTEMS: No CV, , pulmonary, eye, ENT system symptoms on review. Reliability poor. MENTAL STATUS EXAM: Oriented to himself. Insight, judgment, recent and remote memory, attention, concentration, fund of knowledge poor, consistent with his diagnosis mentioned in my initial note. PLAN: Start Risperdal 0.125 mg p.o. at bedtime. Rest unchanged from initial note. MAN Brinda VASQUEZ MD DR: OBDULIA/rosa elena JOB#: [id number] / [id number]
[2018-09-11 05:57] VITALS: BP 149/91
[2018-09-11] MEDS: APIXABAN 5 MG TABLET. PO SCH ×2 (07:50→19:53)
[2018-09-11] MEDS: METOPROLOL TART IMMED RELEASE 25 MG TABLET PO SCH ×2 (07:50→19:53)
[2018-09-11] MEDS: ASPIRIN ENTERIC COATED 81 MG TABLET.DR. PO SCH (07:51)
[2018-09-11] MEDS: traZODone 50 MG TABLET. PO SCH ×2 (07:51→16:39)
[2018-09-11] MEDS: FOLIC ACID 1 MG TABLET PO SCH (07:51)
[2018-09-11] MEDS: ASCORBIC ACID 500 MG TABLET PO SCH (07:51)
[2018-09-11] MEDS: MEMANTINE 10 MG TABLET. PO SCH ×2 (07:51→19:53)
[2018-09-11] MEDS: MULTIVITAMIN with MINERAL TABLET. PO SCH (07:51)
[2018-09-11] MEDS: CHOLECALCIFEROL (VITAMIN D3) 1,000 UNIT TABLET PO SCH ×2 (07:51→19:53)
[2018-09-11] MEDS: DIVALPROEX 125 MG CAP.SPRINK PO SCH ×2 (07:51→16:39)
[2018-09-11] MEDS: AZELASTINE NASAL SPRAY 30ML BOTTLE. NS SCH ×2 (07:52→21:16)
[2018-09-11] MEDS: QUEtiapine 25 MG TABLET. PO PRN (08:45)
--- NOTE | 2018-09-11 09:10 | NUR ---
Nursing Note: Greeted pt in dining room early in the morning, pt appeared calm. However, closer to med pass, staff reported that pt was agitated and had torn apart cereal box and tossed bowl. Pulled PRN to add to pt's morning meds. Unfortunately, pt refused meds, on the final try, pt looked at this nurse out of the side of his eye and said, "It's about to blow" then he threw his O.J. on this nurse. Pt remained seated; however, he continued to state, "It's about to blow." Pt escorted to [facility] for safety. Will continue to monitor.
--- NOTE | 2018-09-11 09:37 | NUR ---
WEEKLY ACTIVITY THERAPY NOTE Date of Admission: 09/03/2018 Date of AT Assessment: 09/05/2018 Goal aimed: to increase socialization and engagement Initial Goal: Pt. will participate in at least three Activity Therapy groups or individual sessions before discharge. Weekly progress towards goal: achieved Group participation level: minimal Weekly highlights: participated in both groups on Saturday, full participation with balloon volleyball Behaviors observed: wanders often, sleepy, generally quiet and compliant, mumbles to self Plan: Goal changed 09/11/18: Pt. will participate in at least three Activity Therapy individual or group sessions per week Beneficial adaptations: repeat prompting, direct prompting, more response to gross motor activities
--- NOTE | 2018-09-11 10:53 | NUR ---
GERARDO spoke to pt. daughter, Dilma Saleem, regarding alternative placement for pt. SW did explain if alternate placement is not found at time of discharge, pt. would need to return to [facility]. GERARDO spoke to Frida, Nurse at [facility], regarding pt. update and tentative discharge scheduled for 09/19/2018. Frida shared she would like to get pt. on hospice and would like to get detailed notes from our staff regarding how pt. is doing. GERARDO will fax Frida pt. notes the middle part of next week.
--- NOTE | 2018-09-11 10:57 | NUR ---
WEEKLY NOTE Pt. daughter, Dilma Saleem, was contacted for treatment team. Pt. is eating 88% of meals and sleeps and average of 6 hours. Pt. is calm, pleasant, interactive, and wandering. Pt. is medication compliant most of the time. Pt. has been involved in multiple recreational therapy groups. Pt. does mumble to self. A CAT scan was performed, and pt. will be seeing the neurologist. Tentative discharge is scheduled for 09/19/2018, back to [facility] unless alternative placement is located prior to discharge.
[2018-09-11] MEDS: ATORVASTATIN CALCIUM 20 MG TABLET PO SCH (19:53)
[2018-09-11] MEDS: MELATONIN 3 MG TABLET PO SCH (19:53)
[2018-09-11] MEDS: CALCIUM CARBONATE 500 MG TABLET PO SCH (19:53)
[2018-09-11] MEDS: MIRTAZAPINE 7.5 MG TABLET. PO SCH (19:53)
[2018-09-11] MEDS: risperiDONE 0.25 MG TABLET. PO SCH (19:54)
--- NOTE | 2018-09-11 21:26 | NUR ---
Pt. this evening was sitting out in the day room, when this nurse came on shift. He has been calm, pleasant, and interacting appropriately with staff. No agitation or aggression noted at this time. He has been med compliant with taking his HS meds this evening.
--- NOTE | 2018-09-11 22:41 | PDOC ---
Exam Note: Hu Note: Please also refer to the separate dictated note~for this date of service dictated separately.~Patient seen individually. Discussed the patient with Nursing staff reviewed the chart.~Reviewed interim history and current functioning. Reviewed vital signs,~Labs/ Radiology~and current medications noted below. Continue current treatment with the changes noted in the dictated addendum note Assessment: Vital Signs: Vital Signs Date Time Temp Pulse Resp B/P (MAP) Pulse Ox O2 Delivery O2 Flow Rate FiO2 09/11/18 19:53 88 149/91 09/11/18 05:57 97.4 18 98 09/05/18 16:15 Room Air I&O Intake and Output 09/11/18 06:59 Intake Total 1200 ml Balance 1200 ml Intake Oral 1200 ml # Voids 1 # Bowel Movements 1 Current Medications: Meds: Current Medications Acetaminophen (Tylenol) 650 mg PRN Q4HRS PRN PO PAIN / TEMP; Start 09/03/18 at 18:15 Calcium Carbonate/ Glycine (Oscal) 500 mg QHS PO Last administered on 09/11/18 19:53; Start 09/03/18 at 21:00 Vitamin D (Vitamin D3) 1,000 unit BID PO Last administered on 09/11/18 19:53; Start 09/03/18 at 21:00 Nitroglycerin (Nitrostat) 0.4 mg PRN Q5MIN PRN SL CHEST PAIN; Start 09/03/18 at 18:15 Senna/Docusate Sodium (Senna Plus) 1 tab PRN BID PRN PO CONSTIPATION; Start 09/03/18 at 18:15 Apixaban (Eliquis) 5 mg BID PO Last administered on 09/11/18 19:53; Start 09/03/18 at 21:00 Ascorbic Acid (Vitamin C) 500 mg DAILY PO Last administered on 09/11/18 07:51; Start 09/04/18 at 09:00 Aspirin (Aspirin Enteric Coated) 81 mg DAILYWBKFT PO Last administered on 09/11/18 07:51; Start 09/04/18 at 08:00 Atorvastatin Calcium (Lipitor) 40 mg QHS PO Last administered on 09/11/18 19:53; Start 09/03/18 at 21:00 Folic Acid (Folic Acid) 1 mg DAILY PO Last administered on 09/11/18 07:51; Start 09/04/18 at 09:00 Melatonin 6 mg QHS PO Last administered on 09/11/18 19:53; Start 09/03/18 at 21:00 Memantine (Namenda) 10 mg BID PO Last administered on 09/11/18 19:53; Start 09/03/18 at 21:00 Mirtazapine (Remeron) 7.5 mg QHS PO Last administered on 09/11/18 19:53; Start 09/03/18 at 21:00 Multivitamins/ Calcium (Thera-M Plus) 1 tab DAILY PO Last administered on 09/11/18 07:51; Start 09/04/18 at 09:00 Azelastine HCl (Astelin) 1 spray BID NS Last administered on 09/11/18 21:16; Start 09/03/18 at 21:00 Metoprolol Tartrate (Lopressor) 25 mg BID PO Last administered on 09/11/18 19:53; Start 09/03/18 at 21:00 Quetiapine Fumarate (SEROquel) 25 mg PRN BID PRN PO ANXIETY / AGITATION Last administered on 09/11/18 08:45; Start 09/03/18 at 18:30 Multi-Ingredient Ointment (Analgesic [place]) 1 kelsie PRN QID PRN TP MUSCLE PAIN; Start 09/03/18 at 18:30 Al Hydroxide/Mg Hydroxide (Mylanta Plus Xs) 15 ml PRN AFTMEALHC PRN PO DYSPEPSIA; Start 09/03/18 at 18:30 Magnesium Hydroxide (Milk Of Magnesia) 2,400 mg PRN QHS PRN PO CONSTIPATION; Start 09/03/18 at 18:30 Trazodone HCl (Desyrel) 25 mg 1X ONCE PO Last administered on 09/04/18 13:19; Start 09/04/18 at 13:00; Stop 09/04/18 at 13:10; Status DC Trazodone HCl (Desyrel) 25 mg 0900,1700 PO Last administered on 09/11/18 16:39; Start 09/04/18 at 17:00 Divalproex Sodium (Depakote Sprinkles) 125 mg 0900,1700 PO Last administered on 09/11/18 16:39; Start 09/05/18 at 17:00 Risperidone (RisperDAL) 0.125 mg QHS PO Last administered on 09/11/18at 19:54; Start 09/09/18 at 21:00 Active Scripts Active Reported Tylenol (Acetaminophen) 325 Mg Tablet 650 Mg PO PRN Q4HRS PRN NITROGLYCERIN SubLingual (Nitroglycerin) 0.4 Mg Tab.subl 0.4 Mg SL PRN Q5MIN PRN Senna Plus Tablet (Sennosides/Docusate Sodium) 1 Each Tablet 1 Each PO PRN BID PRN Vitamin D3 (Cholecalciferol (Vitamin D3)) 1,000 Unit Tablet 1,000 Unit PO BID Vitamin C (Ascorbic Acid) 500 Mg Tab.chew 500 Mg PO DAILY Multivitamins (Multivitamin) 1 Each Tablet 1 Each PO DAILY Remeron (Mirtazapine) 15 Mg Tablet 7.5 Mg PO QHS Metoprolol Tartrate 25 Mg Tablet 25 Mg PO BID Namenda (Memantine Hcl) 10 Mg Tablet 10 Mg PO BID Melatonin 3 Mg Tablet 6 Mg PO QHS Hydroxyzine Pamoate 50 Mg Capsule 50 Mg PO QID Folic Acid 1 Mg Tablet 1 Tab PO DAILY Eliquis (Apixaban) 5 Mg Tablet 5 Mg PO BID Calcium Carbonate 500 Mg Tablet 500 Mg PO QHS Azelastine Hcl 137 Mcg/0.137 Ml [place].pump 1 Spr NS BID Atorvastatin Calcium 40 Mg Tablet 40 Mg PO QHS Aspirin Ec (Aspirin) 81 Mg Tablet. 81 Mg PO DAILY I have reviewed the current psychotropics carefully including drug interactions. Risk benefit ratio favors no change other than as noted in my dictated progress note. Diagnosis: Problems: (1) Anxiety disorder (2) Dementia, vascular, with depression (3) Dementia, vascular, with delusions (4) Dementia in Alzheimer's disease with depression (5) Dementia in Alzheimer's disease with delusions (6) Impulse control disorder NELSON VASQUEZ MD Sep 11, 2018 22:41
[2018-09-12 06:20] VITALS: BP 147/90
[2018-09-12] MEDS: APIXABAN 5 MG TABLET. PO SCH ×2 (07:46→20:58)
[2018-09-12] MEDS: MULTIVITAMIN with MINERAL TABLET. PO SCH (07:47)
[2018-09-12] MEDS: FOLIC ACID 1 MG TABLET PO SCH (07:47)
[2018-09-12] MEDS: CHOLECALCIFEROL (VITAMIN D3) 1,000 UNIT TABLET PO SCH ×2 (07:47→20:59)
[2018-09-12] MEDS: MEMANTINE 10 MG TABLET. PO SCH ×2 (07:47→20:59)
[2018-09-12] MEDS: METOPROLOL TART IMMED RELEASE 25 MG TABLET PO SCH ×2 (07:47→20:58)
[2018-09-12] MEDS: traZODone 50 MG TABLET. PO SCH ×2 (07:48→17:22)
[2018-09-12] MEDS: ASPIRIN ENTERIC COATED 81 MG TABLET.DR. PO SCH (07:48)
[2018-09-12] MEDS: DIVALPROEX 125 MG CAP.SPRINK PO SCH ×2 (07:48→17:22)
[2018-09-12] MEDS: ASCORBIC ACID 500 MG TABLET PO SCH (07:48)
[2018-09-12] MEDS: AZELASTINE NASAL SPRAY 30ML BOTTLE. NS SCH ×2 (07:49→20:59)
--- NOTE | 2018-09-12 09:00 | NUR ---
Nursing Note: Pt in dining room for morning med pass, calm, compliant w/ meds crushed, cooperative w/ assess, alert and oriented to self only.
[2018-09-12] MEDS: QUEtiapine 25 MG TABLET. PO PRN ×2 (11:45→23:36)
--- NOTE | 2018-09-12 11:46 | NUR ---
Nursing Note: Pt agitated, door checking, pushed a chair in a threatening manner toward a staff member, unable to redirect. PRN given. Will continue to monitor.
[2018-09-12 16:09] VITALS: BP 90/60
[2018-09-12] MEDS: ATORVASTATIN CALCIUM 20 MG TABLET PO SCH (20:57)
[2018-09-12] MEDS: MELATONIN 3 MG TABLET PO SCH (20:57)
[2018-09-12] MEDS: CALCIUM CARBONATE 500 MG TABLET PO SCH (20:58)
[2018-09-12] MEDS: MIRTAZAPINE 7.5 MG TABLET. PO SCH (20:58)
[2018-09-12] MEDS: risperiDONE 0.25 MG TABLET. PO SCH (20:59)
--- NOTE | 2018-09-12 22:12 | PN ---
DATE: 09/10/2018 PSYCHIATRIC PROGRESS NOTE This late entry 09/10/2018 covers elements, nPot covered in my initial note 09/10. SUBJECTIVE: I met with the patient in the evening. The patient slept 6 hours previous night. Per nursing report, he had a good day, alert, oriented to himself only. REVIEW OF SYSTEMS: No CV, , pulmonary, eye, ENT system symptoms on review. Reliability poor. MENTAL STATUS EXAM: Oriented to himself. Insight, judgment, recent and remote memory, attention, concentration, fund of knowledge poor, consistent with his diagnosis mentioned in my initial note. PLAN: No change from initial note. NELSON VASQUEZ MD DR: OBDULIA/rosa leena JOB#: [id number] / [id number]
--- NOTE | 2018-09-12 22:24 | PDOC ---
Exam Note: Hu Note: Please also refer to the separate dictated note~for this date of service dictated separately.~Patient seen individually. Discussed the patient with Nursing staff reviewed the chart.~Reviewed interim history and current functioning. Reviewed vital signs,~Labs/ Radiology~and current medications noted below. Continue current treatment with the changes noted in the dictated addendum note Assessment: Vital Signs: Vital Signs Date Time Temp Pulse Resp B/P (MAP) Pulse Ox O2 Delivery O2 Flow Rate FiO2 09/12/18 20:58 76 121/82 09/12/18 16:09 98.0 20 98 Room Air I&O Intake and Output 09/12/18 07:00 Intake Total 840 ml Balance 840 ml Intake Oral 840 ml Current Medications: Meds: Current Medications Acetaminophen (Tylenol) 650 mg PRN Q4HRS PRN PO PAIN / TEMP; Start 09/03/18 at 18:15 Calcium Carbonate/ Glycine (Oscal) 500 mg QHS PO Last administered on 09/12/18 20:58; Start 09/03/18 at 21:00 Vitamin D (Vitamin D3) 1,000 unit BID PO Last administered on 09/12/18 20:59; Start 09/03/18 at 21:00 Nitroglycerin (Nitrostat) 0.4 mg PRN Q5MIN PRN SL CHEST PAIN; Start 09/03/18 at 18:15 Senna/Docusate Sodium (Senna Plus) 1 tab PRN BID PRN PO CONSTIPATION; Start 09/03/18 at 18:15 Apixaban (Eliquis) 5 mg BID PO Last administered on 09/12/18 20:58; Start 09/03/18 at 21:00 Ascorbic Acid (Vitamin C) 500 mg DAILY PO Last administered on 09/12/18 07:48; Start 09/04/18 at 09:00 Aspirin (Aspirin Enteric Coated) 81 mg DAILYWBKFT PO Last administered on 09/12/18 07:48; Start 09/04/18 at 08:00 Atorvastatin Calcium (Lipitor) 40 mg QHS PO Last administered on 09/12/18 20:57; Start 09/03/18 at 21:00 Folic Acid (Folic Acid) 1 mg DAILY PO Last administered on 09/12/18 07:47; Start 09/04/18 at 09:00 Melatonin 6 mg QHS PO Last administered on 09/12/18 20:57; Start 09/03/18 at 21:00 Memantine (Namenda) 10 mg BID PO Last administered on 09/12/18 20:59; Start 09/03/18 at 21:00 Mirtazapine (Remeron) 7.5 mg QHS PO Last administered on 09/12/18 20:58; Start 09/03/18 at 21:00 Multivitamins/ Calcium (Thera-M Plus) 1 tab DAILY PO Last administered on 09/12/18 07:47; Start 09/04/18 at 09:00 Azelastine HCl (Astelin) 1 spray BID NS Last administered on 09/12/18 20:59; Start 09/03/18 at 21:00 Metoprolol Tartrate (Lopressor) 25 mg BID PO Last administered on 09/12/18 20:58; Start 09/03/18 at 21:00 Quetiapine Fumarate (SEROquel) 25 mg PRN BID PRN PO ANXIETY / AGITATION Last administered on 09/12/18 11:45; Start 09/03/18 at 18:30 Multi-Ingredient Ointment (Analgesic [place]) 1 kelsie PRN QID PRN TP MUSCLE PAIN; Start 09/03/18 at 18:30 Al Hydroxide/Mg Hydroxide (Mylanta Plus Xs) 15 ml PRN AFTMEALHC PRN PO DYSPEPSIA; Start 09/03/18 at 18:30 Magnesium Hydroxide (Milk Of Magnesia) 2,400 mg PRN QHS PRN PO CONSTIPATION; Start 09/03/18 at 18:30 Trazodone HCl (Desyrel) 25 mg 1X ONCE PO Last administered on 09/04/18 13:19; Start 09/04/18 at 13:00; Stop 09/04/18 at 13:10; Status DC Trazodone HCl (Desyrel) 25 mg 0900,1700 PO Last administered on 09/12/18 17:22; Start 09/04/18 at 17:00 Divalproex Sodium (Depakote Sprinkles) 125 mg 0900,1700 PO Last administered on 09/12/18 17:22; Start 09/05/18 at 17:00 Risperidone (RisperDAL) 0.125 mg QHS PO Last administered on 09/12/18at 20:59; Start 09/09/18 at 21:00 Active Scripts Active Reported Tylenol (Acetaminophen) 325 Mg Tablet 650 Mg PO PRN Q4HRS PRN NITROGLYCERIN SubLingual (Nitroglycerin) 0.4 Mg Tab.subl 0.4 Mg SL PRN Q5MIN PRN Senna Plus Tablet (Sennosides/Docusate Sodium) 1 Each Tablet 1 Each PO PRN BID PRN Vitamin D3 (Cholecalciferol (Vitamin D3)) 1,000 Unit Tablet 1,000 Unit PO BID Vitamin C (Ascorbic Acid) 500 Mg Tab.chew 500 Mg PO DAILY Multivitamins (Multivitamin) 1 Each Tablet 1 Each PO DAILY Remeron (Mirtazapine) 15 Mg Tablet 7.5 Mg PO QHS Metoprolol Tartrate 25 Mg Tablet 25 Mg PO BID Namenda (Memantine Hcl) 10 Mg Tablet 10 Mg PO BID Melatonin 3 Mg Tablet 6 Mg PO QHS Hydroxyzine Pamoate 50 Mg Capsule 50 Mg PO QID Folic Acid 1 Mg Tablet 1 Tab PO DAILY Eliquis (Apixaban) 5 Mg Tablet 5 Mg PO BID Calcium Carbonate 500 Mg Tablet 500 Mg PO QHS Azelastine Hcl 137 Mcg/0.137 Ml [employer].pump 1 Spr NS BID Atorvastatin Calcium 40 Mg Tablet 40 Mg PO QHS Aspirin Ec (Aspirin) 81 Mg Tablet.dr 81 Mg PO DAILY I have reviewed the current psychotropics carefully including drug interactions. Risk benefit ratio favors no change other than as noted in my dictated progress note. Diagnosis: Problems: (1) Anxiety disorder (2) Dementia, vascular, with depression (3) Dementia, vascular, with delusions (4) Dementia in Alzheimer's disease with depression (5) Dementia in Alzheimer's disease with delusions (6) Impulse control disorder NELSON VASQUEZ MD Sep 12, 2018 22:24
--- NOTE | 2018-09-12 23:54 | NUR ---
Pt. this evening was sitting in the day room, when this loan underwriter came on shift. Pt. appeared to be calm and is cooperative. He has been compliant with taking his HS meds this evening. It was reported to this loan underwriter that he was still awake lying in bed around 2330. Gave PRN meds, see MAR.
[2018-09-13 06:42] VITALS: BP 134/84
[2018-09-13] MEDS: CHOLECALCIFEROL (VITAMIN D3) 1,000 UNIT TABLET PO SCH ×2 (08:31→20:38)
[2018-09-13] MEDS: DIVALPROEX 125 MG CAP.SPRINK PO SCH ×2 (08:32→17:03)
[2018-09-13] MEDS: APIXABAN 5 MG TABLET. PO SCH ×2 (08:32→20:34)
[2018-09-13] MEDS: METOPROLOL TART IMMED RELEASE 25 MG TABLET PO SCH ×2 (08:32→20:38)
[2018-09-13] MEDS: traZODone 50 MG TABLET. PO SCH ×2 (08:32→17:03)
[2018-09-13] MEDS: ASPIRIN ENTERIC COATED 81 MG TABLET.DR. PO SCH (08:32)
[2018-09-13] MEDS: MEMANTINE 10 MG TABLET. PO SCH ×2 (08:32→20:33)
[2018-09-13] MEDS: FOLIC ACID 1 MG TABLET PO SCH (08:32)
[2018-09-13] MEDS: MULTIVITAMIN with MINERAL TABLET. PO SCH (08:32)
[2018-09-13] MEDS: ASCORBIC ACID 500 MG TABLET PO SCH (08:32)
[2018-09-13] MEDS: AZELASTINE NASAL SPRAY 30ML BOTTLE. NS SCH ×2 (08:33→20:38)
[2018-09-13] MEDS: LORazepam 0.5 MG TABLET PO PRN (11:28)
--- NOTE | 2018-09-13 15:39 | NUR ---
Pt in day room during med pass and assessment. Pt pacing floor and appeared agitated. Pt refused meds crushed in pudding so this nurse put meds in shake and offered to pt. Pt tried grabbing cup to toss, but ended up squeezing it till it broke and spattered all over this nurse and cardiac rn. Pt placed in quiet [place]. Prn ativan 0.25mg had to be given via syringe.
[2018-09-13 16:06] VITALS: BP 100/73
[2018-09-13] MEDS: MIRTAZAPINE 7.5 MG TABLET. PO SCH (20:33)
[2018-09-13] MEDS: MELATONIN 3 MG TABLET PO SCH (20:34)
[2018-09-13] MEDS: risperiDONE 0.25 MG TABLET. PO SCH (20:34)
[2018-09-13] MEDS: CALCIUM CARBONATE 500 MG TABLET PO SCH (20:38)
[2018-09-13] MEDS: ATORVASTATIN CALCIUM 20 MG TABLET PO SCH (20:38)
--- NOTE | 2018-09-13 20:41 | PDOC ---
Exam Note: Hu Note: Please also refer to the separate dictated note~for this date of service dictated separately.~Patient seen individually. Discussed the patient with Nursing staff reviewed the chart.~Reviewed interim history and current functioning. Reviewed vital signs,~Labs/ Radiology~and current medications noted below. Continue current treatment with the changes noted in the dictated addendum note Assessment: Vital Signs: Vital Signs Date Time Temp Pulse Resp B/P (MAP) Pulse Ox O2 Delivery O2 Flow Rate FiO2 09/13/18 20:38 64 100/73 09/13/18 16:06 97.8 20 96 Room Air I&O Intake and Output 09/13/18 07:00 Intake Total 958 ml Balance 958 ml Intake Oral 958 ml Current Medications: Meds: Current Medications Acetaminophen (Tylenol) 650 mg PRN Q4HRS PRN PO PAIN / TEMP; Start 09/03/18 at 18:15 Calcium Carbonate/ Glycine (Oscal) 500 mg QHS PO Last administered on 09/12/18 20:58; Start 09/03/18 at 21:00 Vitamin D (Vitamin D3) 1,000 unit BID PO Last administered on 09/13/18 08:31; Start 09/03/18 at 21:00 Nitroglycerin (Nitrostat) 0.4 mg PRN Q5MIN PRN SL CHEST PAIN; Start 09/03/18 at 18:15 Senna/Docusate Sodium (Senna Plus) 1 tab PRN BID PRN PO CONSTIPATION; Start 09/03/18 at 18:15 Apixaban (Eliquis) 5 mg BID PO Last administered on 09/13/18 20:34; Start 09/03/18 at 21:00 Ascorbic Acid (Vitamin C) 500 mg DAILY PO Last administered on 09/13/18 08:32; Start 09/04/18 at 09:00 Aspirin (Aspirin Enteric Coated) 81 mg DAILYWBKFT PO Last administered on 09/13/18 08:32; Start 09/04/18 at 08:00 Atorvastatin Calcium (Lipitor) 40 mg QHS PO Last administered on 09/12/18 20:57; Start 09/03/18 at 21:00 Folic Acid (Folic Acid) 1 mg DAILY PO Last administered on 09/13/18 08:32; Start 09/04/18 at 09:00 Melatonin 6 mg QHS PO Last administered on 09/13/18 20:34; Start 09/03/18 at 21:00 Memantine (Namenda) 10 mg BID PO Last administered on 09/13/18 20:33; Start 09/03/18 at 21:00 Mirtazapine (Remeron) 7.5 mg QHS PO Last administered on 09/13/18 20:33; Start 09/03/18 at 21:00 Multivitamins/ Calcium (Thera-M Plus) 1 tab DAILY PO Last administered on 09/13/18 08:32; Start 09/04/18 at 09:00 Azelastine HCl (Astelin) 1 spray BID NS Last administered on 09/13/18 08:33; Start 09/03/18 at 21:00 Metoprolol Tartrate (Lopressor) 25 mg BID PO Last administered on 09/13/18 08:32; Start 09/03/18 at 21:00 Quetiapine Fumarate (SEROquel) 25 mg PRN BID PRN PO ANXIETY / AGITATION Last administered on 09/12/18 23:36; Start 09/03/18 at 18:30 Multi-Ingredient Ointment (Analgesic [place]) 1 kelsie PRN QID PRN TP MUSCLE PAIN; Start 09/03/18 at 18:30 Al Hydroxide/Mg Hydroxide (Mylanta Plus Xs) 15 ml PRN AFTMEALHC PRN PO DYSPEPSIA; Start 09/03/18 at 18:30 Magnesium Hydroxide (Milk Of Magnesia) 2,400 mg PRN QHS PRN PO CONSTIPATION; Start 09/03/18 at 18:30 Trazodone HCl (Desyrel) 25 mg 1X ONCE PO Last administered on 09/04/18 13:19; Start 09/04/18 at 13:00; Stop 09/04/18 at 13:10; Status DC Trazodone HCl (Desyrel) 25 mg 0900,1700 PO Last administered on 09/13/18 17:03; Start 09/04/18 at 17:00 Divalproex Sodium (Depakote Sprinkles) 125 mg 0900,1700 PO Last administered on 09/13/18 17:03; Start 09/05/18 at 17:00 Risperidone (RisperDAL) 0.125 mg QHS PO Last administered on 09/13/18at 20:34; Start 09/09/18 at 21:00 Lorazepam (Ativan) 0.25 mg PRN Q2HR PRN PO ANXIETY / AGITATION Last administered on 09/13/18at 11:28; Start 09/13/18 at 11:45 Active Scripts Active Reported Tylenol (Acetaminophen) 325 Mg Tablet 650 Mg PO PRN Q4HRS PRN NITROGLYCERIN SubLingual (Nitroglycerin) 0.4 Mg Tab.subl 0.4 Mg SL PRN Q5MIN PRN Senna Plus Tablet (Sennosides/Docusate Sodium) 1 Each Tablet 1 Each PO PRN BID PRN Vitamin D3 (Cholecalciferol (Vitamin D3)) 1,000 Unit Tablet 1,000 Unit PO BID Vitamin C (Ascorbic Acid) 500 Mg Tab.chew 500 Mg PO DAILY Multivitamins (Multivitamin) 1 Each Tablet 1 Each PO DAILY Remeron (Mirtazapine) 15 Mg Tablet 7.5 Mg PO QHS Metoprolol Tartrate 25 Mg Tablet 25 Mg PO BID Namenda (Memantine Hcl) 10 Mg Tablet 10 Mg PO BID Melatonin 3 Mg Tablet 6 Mg PO QHS Hydroxyzine Pamoate 50 Mg Capsule 50 Mg PO QID Folic Acid 1 Mg Tablet 1 Tab PO DAILY Eliquis (Apixaban) 5 Mg Tablet 5 Mg PO BID Calcium Carbonate 500 Mg Tablet 500 Mg PO QHS Azelastine Hcl 137 Mcg/0.137 Ml [place].pump 1 Spr NS BID Atorvastatin Calcium 40 Mg Tablet 40 Mg PO QHS Aspirin Ec (Aspirin) 81 Mg Tablet.dr 81 Mg PO DAILY I have reviewed the current psychotropics carefully including drug interactions. Risk benefit ratio favors no change other than as noted in my dictated progress note. Diagnosis: Problems: (1) Anxiety disorder (2) Dementia, vascular, with depression (3) Dementia, vascular, with delusions (4) Dementia in Alzheimer's disease with depression (5) Dementia in Alzheimer's disease with delusions (6) Impulse control disorder NELSON VASQUEZ MD Sep 13, 2018 20:40
--- NOTE | 2018-09-13 23:00 | NUR ---
Pt has been wandering the unit this evening. Pt is restless and confused. Refused medications crushed in one bite. Crushed medications hidden in strawberry yogurt and were consumed. A/O to name, .
--- NOTE | 2018-09-14 03:58 | PN ---
DATE: 09/12/2018 PSYCHIATRIC PROGRESS NOTE This late entry of 09/12/2018 covers elements not covered in my initial note. SUBJECTIVE: I met with the patient in the evening of 09/12/2018. The patient slept 7-3/4 hours previous night. He was not agitated previous night, done better during the day, 09/12/2018, better at lunch and then door checking, agitated, received Seroquel 25 mg p.r.n., did better. Family visited him for his birthday democrat and he did better after that. REVIEW OF SYSTEMS: No CV, , pulmonary, eye, ENT system symptoms on review. Reliability poor. MENTAL STATUS EXAM: Oriented to himself. Insight, judgment, recent and remote memory, attention, concentration, fund of knowledge poor consistent with his diagnosis mentioned in my initial note. PLAN: No change from initial note. MAN Brinda VASQUEZ MD DR: OBDULIA/rosa elena JOB#: [id number] / [id number]
--- NOTE | 2018-09-14 05:11 | PN ---
DATE: 09/11/2018 This is late entry, 09/11/2018, covers elements not covered in my initial note. SUBJECTIVE: I met with the patient in the evening, staffed at treatment team meeting with the entire team in the morning and the patient's daughter, Grecia, attended. We reviewed his history, diagnoses, current psychotropics, lab workup. He is sleeping average of 6 hours, appetite 75%. Wandering, confused, compliant with medications. REVIEW OF SYSTEMS: No eye, ENT, CV, or pulmonary system symptoms on review. Reliability poor. MENTAL STATUS EXAM: Oriented to himself. Insight, judgment, recent and remote memory, attention, concentration, fund of knowledge poor consistent with his diagnoses. IMPRESSION: Major neurocognitive disorder, Alzheimer, vascular with delusion; depression; behavioral disturbance; anxiety disorder, unspecified; impulse control disorder, unspecified. PLAN: Continue psychotropics from initial note. NELSON VASQUEZ MD DR: OBDULIA/rosa elena JOB#: [id number] / [id number]
[2018-09-14 05:55] VITALS: BP 135/92
[2018-09-14] MEDS: DIVALPROEX 125 MG CAP.SPRINK PO SCH ×2 (09:34→17:02)
[2018-09-14] MEDS: APIXABAN 5 MG TABLET. PO SCH ×2 (09:34→20:05)
[2018-09-14] MEDS: ASPIRIN ENTERIC COATED 81 MG TABLET.DR. PO SCH (09:34)
[2018-09-14] MEDS: traZODone 50 MG TABLET. PO SCH ×2 (09:34→17:02)
[2018-09-14] MEDS: FOLIC ACID 1 MG TABLET PO SCH (09:34)
[2018-09-14] MEDS: METOPROLOL TART IMMED RELEASE 25 MG TABLET PO SCH ×2 (09:35→20:04)
[2018-09-14] MEDS: MEMANTINE 10 MG TABLET. PO SCH (09:35)
[2018-09-14] MEDS: MULTIVITAMIN with MINERAL TABLET. PO SCH (09:36)
[2018-09-14] MEDS: CHOLECALCIFEROL (VITAMIN D3) 1,000 UNIT TABLET PO SCH ×2 (09:36→20:05)
[2018-09-14] MEDS: ASCORBIC ACID 500 MG TABLET PO SCH (09:36)
[2018-09-14] MEDS: AZELASTINE NASAL SPRAY 30ML BOTTLE. NS SCH ×2 (09:42→20:06)
--- NOTE | 2018-09-14 10:27 | NUR ---
Pt is confused, calm, cooperative. No agitation or aggression. No hallucinations or delusions. He is cooperative with his medication crushed in strawberry yogurt and is compliant with his assessment.
[2018-09-14 12:03] LABS: BASO % 0 % (0-3); EOS # 0.1 x10^3/uL (0.0-0.7); EOS % 1 % (0-3); HEMATOCRIT 36.1 % (39.0-53.0); HEMOGLOBIN 11.8 g/dL (13.0-17.5); LYMPH # 1.3 x10^3/uL (1.0-4.8); LYMPH % 15 % (24-48); MEAN CORPUSCULAR HEMOGLOBIN 30 pg (25-35); MEAN CORPUSCULAR HGB CONC 33 g/dL (31-37); MEAN CORPUSCULAR VOLUME 90 fL (79-100); MONO # 0.7 x10^3/uL (0.0-1.1); MONO % 8 % (0-9); NEUT # 6.4 x10^3uL (1.8-7.7); NEUT % 76 % (31-73); PLATELET COUNT 274 x10^3/uL (140-400); RED CELL DISTRIBUTION WIDTH 14.4 % (11.5-14.5); WHITE BLOOD COUNT 8.4 x10^3/uL (4.0-11.0)
[2018-09-14 12:12] LABS: ALBUMIN 3.5 g/dL (3.4-5.0); ALBUMIN/GLOBULIN RATIO 1.1 (1.0-1.7); CALCIUM 9.3 mg/dL (8.5-10.1); CREATININE 1.1 mg/dL (0.7-1.3); GFR 64.7; POTASSIUM 4.3 mmol/L (3.5-5.1); TOTAL BILIRUBIN 0.4 mg/dL (0.2-1.0); TOTAL PROTEIN 6.7 g/dL (6.4-8.2)
--- NOTE | 2018-09-14 13:57 | PN ---
DATE: 09/13/2018 PSYCHIATRIC PROGRESS NOTE This late entry 09/13/2018 covers elements not covered in my initial note. SUBJECTIVE: I met with the patient in the evening at length. The patient slept 6-1/4 hours previous evening. He refused his a.m. medications, took it later in a shake and then threw the shake on the nursing staff. Nursing staff had paged me as an emergency, we added p.r.n. Ativan. He has been suspicious, paranoid, poured everything in the toilet. REVIEW OF SYSTEMS: No CV, , pulmonary, eye, ENT system symptoms on review. Reliability poor. MENTAL STATUS EXAM: Oriented to himself. Insight, judgment, recent and remote memory, attention, concentration, fund of knowledge poor consistent with his diagnosis mentioned in my initial note. PLAN: Increase Risperdal from 0.125 mg at bedtime to 0.25 mg at bedtime. Maintain Remeron, Namenda, melatonin, trazodone scheduled, Seroquel p.r.n., Depakote at current dosage. Valproic acid level subtherapeutic at 17. Depending on how he does with the increase of Risperdal, we may adjust the Depakote as well. NELSON VASQUEZ MD DR: OBDULIA/rosa elena JOB#: [id number] / [id number]
[2018-09-14 15:45] VITALS: BP 103/71
[2018-09-14] MEDS: QUEtiapine 25 MG TABLET. PO PRN (17:54)
--- NOTE | 2018-09-14 17:57 | NUR ---
Pt was following female pts after dinner and staff reported they witnessed him take his penis out of his pants and masturbate in the hallway in front of peers. Pt taken to the [facility] for safety, redirection and deescalation. PRN seroquel given.
[2018-09-14] MEDS: CALCIUM CARBONATE 500 MG TABLET PO SCH (20:04)
[2018-09-14] MEDS: MIRTAZAPINE 7.5 MG TABLET. PO SCH (20:04)
[2018-09-14] MEDS: ATORVASTATIN CALCIUM 20 MG TABLET PO SCH (20:05)
[2018-09-14] MEDS: MELATONIN 3 MG TABLET PO SCH (20:05)
[2018-09-14] MEDS: risperiDONE 0.25 MG TABLET. PO SCH (20:06)
--- NOTE | 2018-09-14 21:00 | NUR ---
Pt sitting calmly in the dayroom this evening. Medications crushed and hidden in strawberry yogurt and were consumed. No sexually inappropriate behaviors noted.
--- NOTE | 2018-09-14 22:43 | PDOC ---
Exam Note: Hu Note: Please also refer to the separate dictated note~for this date of service dictated separately.~Patient seen individually. Discussed the patient with Nursing staff reviewed the chart.~Reviewed interim history and current functioning. Reviewed vital signs,~Labs/ Radiology~and current medications noted below. Continue current treatment with the changes noted in the dictated addendum note Assessment: Vital Signs: Vital Signs Date Time Temp Pulse Resp B/P (MAP) Pulse Ox O2 Delivery O2 Flow Rate FiO2 09/14/18 20:04 68 103/71 09/14/18 15:45 97.3 20 97 09/13/18 16:06 Room Air I&O Intake and Output 09/14/18 06:59 Intake Total 1080 ml Balance 1080 ml Intake Oral 1080 ml # Voids 1 Labs: Laboratory Tests Test 09/14/18 11:22 White Blood Count 8.4 x10^3/uL (4.0-11.0) Red Blood Count 4.00 x10^6/uL (4.30-5.70) L Hemoglobin 11.8 g/dL (13.0-17.5) L Hematocrit 36.1 % (39.0-53.0) L Mean Corpuscular Volume 90 fL (79-100) Mean Corpuscular Hemoglobin 30 pg (25-35) Mean Corpuscular Hemoglobin Concent 33 g/dL (31-37) Red Cell Distribution Width 14.4 % (11.5-14.5) Platelet Count 274 x10^3/uL (140-400) Neutrophils (%) (Auto) 76 % (31-73) H Lymphocytes (%) (Auto) 15 % (24-48) L Monocytes (%) (Auto) 8 % (0-9) Eosinophils (%) (Auto) 1 % (0-3) Basophils (%) (Auto) 0 % (0-3) Neutrophils # (Auto) 6.4 x10^3uL (1.8-7.7) Lymphocytes # (Auto) 1.3 x10^3/uL (1.0-4.8) Monocytes # (Auto) 0.7 x10^3/uL (0.0-1.1) Eosinophils # (Auto) 0.1 x10^3/uL (0.0-0.7) Basophils # (Auto) 0.0 x10^3/uL (0.0-0.2) Sodium Level 144 mmol/L (136-145) Potassium Level 4.3 mmol/L (3.5-5.1) Chloride Level 107 mmol/L (98-107) Carbon Dioxide Level 29 mmol/L (21-32) Anion Gap 8 (6-14) Blood Urea Nitrogen 21 mg/dL (8-26) Creatinine 1.1 mg/dL (0.7-1.3) Estimated GFR (Cockcroft-Gault) 64.7 BUN/Creatinine Ratio 19 (6-20) Glucose Level 93 mg/dL (70-99) Calcium Level 9.3 mg/dL (8.5-10.1) Total Bilirubin 0.4 mg/dL (0.2-1.0) Aspartate Amino Transferase (AST) 28 U/L (15-37) Alanine Aminotransferase (ALT) 19 U/L (16-63) Alkaline Phosphatase 91 U/L (46-116) Total Protein 6.7 g/dL (6.4-8.2) Albumin 3.5 g/dL (3.4-5.0) Albumin/Globulin Ratio 1.1 (1.0-1.7) Current Medications: Meds: Current Medications Acetaminophen (Tylenol) 650 mg PRN Q4HRS PRN PO PAIN / TEMP; Start 09/03/18 at 18:15 Calcium Carbonate/ Glycine (Oscal) 500 mg QHS PO Last administered on 09/14/18at 20:04; Start 09/03/18 at 21:00 Vitamin D (Vitamin D3) 1,000 unit BID PO Last administered on 09/14/18at 20:05; Start 09/03/18 at 21:00 Nitroglycerin (Nitrostat) 0.4 mg PRN Q5MIN PRN SL CHEST PAIN; Start 09/03/18 at 18:15 Senna/Docusate Sodium (Senna Plus) 1 tab PRN BID PRN PO CONSTIPATION; Start 09/03/18 at 18:15 Apixaban (Eliquis) 5 mg BID PO Last administered on 09/14/18at 20:05; Start 09/03/18 at 21:00 Ascorbic Acid (Vitamin C) 500 mg DAILY PO Last administered on 09/14/18at 09:36; Start 09/04/18 at 09:00 Aspirin (Aspirin Enteric Coated) 81 mg DAILYWBKFT PO Last administered on 09/14/18 09:34; Start 09/04/18 at 08:00 Atorvastatin Calcium (Lipitor) 40 mg QHS PO Last administered on 09/14/18 20:05; Start 09/03/18 at 21:00 Folic Acid (Folic Acid) 1 mg DAILY PO Last administered on 09/14/18 09:34; Start 09/04/18 at 09:00 Melatonin 6 mg QHS PO Last administered on 09/14/18 20:05; Start 09/03/18 at 21:00 Memantine (Namenda) 10 mg BID PO Last administered on 09/14/18 09:35; Start 09/03/18 at 21:00; Stop 09/14/18 at 18:44; Status DC Mirtazapine (Remeron) 7.5 mg QHS PO Last administered on 09/14/18 20:04; Start 09/03/18 at 21:00 Multivitamins/ Calcium (Thera-M Plus) 1 tab DAILY PO Last administered on 09/14/18 09:36; Start 09/04/18 at 09:00 Azelastine HCl (Astelin) 1 spray BID NS Last administered on 09/14/18 20:06; Start 09/03/18 at 21:00 Metoprolol Tartrate (Lopressor) 25 mg BID PO Last administered on 09/14/18 09:35; Start 09/03/18 at 21:00 Quetiapine Fumarate (SEROquel) 25 mg PRN BID PRN PO ANXIETY / AGITATION Last administered on 09/14/18 17:54; Start 09/03/18 at 18:30 Multi-Ingredient Ointment (Analgesic [place]) 1 kelsie PRN QID PRN TP MUSCLE PAIN; Start 09/03/18 at 18:30 Al Hydroxide/Mg Hydroxide (Mylanta Plus Xs) 15 ml PRN AFTMEALHC PRN PO DYSPEPSIA; Start 09/03/18 at 18:30 Magnesium Hydroxide (Milk Of Magnesia) 2,400 mg PRN QHS PRN PO CONSTIPATION; Start 09/03/18 at 18:30 Trazodone HCl (Desyrel) 25 mg 1X ONCE PO Last administered on 5/30/19at 13:19; Start 09/04/18 at 13:00; Stop 09/04/18 at 13:10; Status DC Trazodone HCl (Desyrel) 25 mg 0900,1700 PO Last administered on 09/14/18at 17:02; Start 09/04/18 at 17:00 Divalproex Sodium (Depakote Sprinkles) 125 mg 0900,1700 PO Last administered on 09/14/18 17:02; Start 09/05/18 at 17:00 Risperidone (RisperDAL) 0.125 mg QHS PO Last administered on 09/13/18 20:34; Start 09/09/18 at 21:00; Stop 09/13/18 at 23:49; Status DC Lorazepam (Ativan) 0.25 mg PRN Q2HR PRN PO ANXIETY / AGITATION Last administered on 09/13/18 11:28; Start 09/13/18 at 11:45 Risperidone (RisperDAL) 0.25 mg QHS PO Last administered on 09/14/18at 20:06; Start 09/14/18 at 21:00 Sertraline HCl (Zoloft) 25 mg DAILY PO ; Start 09/15/18 at 09:00; Stop 09/17/18 at 12:00 Sertraline HCl (Zoloft) 50 mg DAILY PO ; Start 09/18/18 at 09:00 Active Scripts Active Reported Tylenol (Acetaminophen) 325 Mg Tablet 650 Mg PO PRN Q4HRS PRN NITROGLYCERIN SubLingual (Nitroglycerin) 0.4 Mg Tab.subl 0.4 Mg SL PRN Q5MIN PRN Senna Plus Tablet (Sennosides/Docusate Sodium) 1 Each Tablet 1 Each PO PRN BID PRN Vitamin D3 (Cholecalciferol (Vitamin D3)) 1,000 Unit Tablet 1,000 Unit PO BID Vitamin C (Ascorbic Acid) 500 Mg Tab.chew 500 Mg PO DAILY Multivitamins (Multivitamin) 1 Each Tablet 1 Each PO DAILY Remeron (Mirtazapine) 15 Mg Tablet 7.5 Mg PO QHS Metoprolol Tartrate 25 Mg Tablet 25 Mg PO BID Namenda (Memantine Hcl) 10 Mg Tablet 10 Mg PO BID Melatonin 3 Mg Tablet 6 Mg PO QHS Hydroxyzine Pamoate 50 Mg Capsule 50 Mg PO QID Folic Acid 1 Mg Tablet 1 Tab PO DAILY Eliquis (Apixaban) 5 Mg Tablet 5 Mg PO BID Calcium Carbonate 500 Mg Tablet 500 Mg PO QHS Azelastine Hcl 137 Mcg/0.137 Ml [place].pump 1 Spr NS BID Atorvastatin Calcium 40 Mg Tablet 40 Mg PO QHS Aspirin Ec (Aspirin) 81 Mg Tablet. 81 Mg PO DAILY I have reviewed the current psychotropics carefully including drug interactions. Risk benefit ratio favors no change other than as noted in my dictated progress note. Diagnosis: Problems: (1) Anxiety disorder (2) Dementia, vascular, with depression (3) Dementia, vascular, with delusions (4) Dementia in Alzheimer's disease with depression (5) Dementia in Alzheimer's disease with delusions (6) Impulse control disorder NELSON VASQUEZ MD Sep 14, 2018 22:43
[2018-09-15 05:55] VITALS: BP 162/93
[2018-09-15] MEDS: DIVALPROEX 125 MG CAP.SPRINK PO SCH ×2 (08:00→16:55)
[2018-09-15] MEDS: ASPIRIN ENTERIC COATED 81 MG TABLET.DR. PO SCH (08:00)
[2018-09-15] MEDS: APIXABAN 5 MG TABLET. PO SCH ×2 (08:01→21:02)
[2018-09-15] MEDS: traZODone 50 MG TABLET. PO SCH ×2 (08:01→16:57)
[2018-09-15] MEDS: METOPROLOL TART IMMED RELEASE 25 MG TABLET PO SCH ×2 (08:02→21:02)
[2018-09-15] MEDS: SERTRALINE 25 MG TABLET. PO SCH (08:05)
[2018-09-15] MEDS: AZELASTINE NASAL SPRAY 30ML BOTTLE. NS SCH ×2 (09:00→21:02)
[2018-09-15] MEDS: FOLIC ACID 1 MG TABLET PO SCH (09:00)
[2018-09-15] MEDS: CHOLECALCIFEROL (VITAMIN D3) 1,000 UNIT TABLET PO SCH ×2 (09:00→21:02)
[2018-09-15] MEDS: ASCORBIC ACID 500 MG TABLET PO SCH (09:00)
[2018-09-15] MEDS: MULTIVITAMIN with MINERAL TABLET. PO SCH (09:00)
--- NOTE | 2018-09-15 10:14 | NUR ---
Pt is confused, calm, cooperative. No agitation or aggression. No hallucinations or delusions. He is cooperative with his medication crushed in ice cream and is compliant with his assessment.
--- NOTE | 2018-09-15 10:35 | NUR ---
Pt. is cooperative and calm, but confused at times. He is alert and oriented x 3. He has no agitation, hallucinations or delusions. He is walking in the hallways. He takes his medications crushed in ice cream. And he was compliant with his assessment.
[2018-09-15] MEDS: QUEtiapine 25 MG TABLET. PO PRN (12:03)
--- NOTE | 2018-09-15 12:10 | PN ---
DATE: 09/14/2018 PSYCHIATRIC PROGRESS NOTE This late entry 09/14/2018 covers elements not covered in my initial note. SUBJECTIVE: Met with the patient in the evening. The patient slept 7-1/2 hours previous night. He did well in the morning, but around lunchtime, his family visited. He was tearful and they have had many questions for nursing staff about why he was tearful. Daughter visited him. He took a nap after lunch and then he was quite agitated, masturbating in the hallway. He received p.r.n. Seroquel around 1800. Compliant with his medications. Previous night, he was wandering. He was agitated to a point where he had to be on the [place] [address]. REVIEW OF SYSTEMS: No CV, , eye, ENT or pulmonary system symptoms on review. Reliability is poor. MENTAL STATUS EXAM: Oriented to himself. Insight, judgment, recent and remote memory, attention, concentration, fund of knowledge is poor, consistent with his diagnoses. IMPRESSION: Major neurocognitive disorder, Alzheimer, vascular with delusion, depression, behavioral disturbance; anxiety disorder, unspecified; impulse control disorder, unspecified. PLAN: The patient does have some mood depressive symptoms, symptoms of anxiety. We will start Zoloft 25 mg a day for 3 days and 50 mg a day. Namenda probably has little benefit at this stage and we will stop the Namenda 10 mg b.i.d., maintain melatonin 6 mg at bedtime, Remeron 7.5 mg at bedtime, trazodone scheduled 25 mg b.i.d., Seroquel 25 mg b.i.d. p.r.n., Depakote 125 mg twice a day, Risperdal 0.25 mg at bedtime, Ativan p.r.n. We will adjust further as clinically indicated. NELSON VASQUEZ MD DR: OBDULIA/rosa elena JOB#: [id number] / [id number]
--- NOTE | 2018-09-15 12:30 | NUR ---
During lunch Pt was irritable, he threw his hamburger, threw his plastic sliverware off of his plate-his spoon hit a female peer in the head. When redirected he stated "well I just sit here be I don't have anything to throw." PRN seroquel given. Pts daughters came to visit at lunch.
[2018-09-15 15:44] VITALS: BP 109/73
[2018-09-15] MEDS: MIRTAZAPINE 7.5 MG TABLET. PO SCH (21:01)
[2018-09-15] MEDS: CALCIUM CARBONATE 500 MG TABLET PO SCH (21:02)
[2018-09-15] MEDS: MELATONIN 3 MG TABLET PO SCH (21:02)
[2018-09-15] MEDS: ATORVASTATIN CALCIUM 20 MG TABLET PO SCH (21:02)
[2018-09-15] MEDS: risperiDONE 0.25 MG TABLET. PO SCH (21:02)
--- NOTE | 2018-09-15 22:26 | NUR ---
Pt. this evening has been sitting in the day room calmly. He has been confusion at times, calm, compliant, and interacting appropriately with staff. No signs of aggression or agitated noted. He has been compliant with taking his HS medications this evening.
--- NOTE | 2018-09-15 22:35 | PDOC ---
Exam Note: Hu Note: Please also refer to the separate dictated note~for this date of service dictated separately.~Patient seen individually. Discussed the patient with Nursing staff reviewed the chart.~Reviewed interim history and current functioning. Reviewed vital signs,~Labs/ Radiology~and current medications noted below. Continue current treatment with the changes noted in the dictated addendum note Assessment: Vital Signs: Vital Signs Date Time Temp Pulse Resp B/P (MAP) Pulse Ox O2 Delivery O2 Flow Rate FiO2 09/15/18 21:02 67 109/73 09/15/18 15:44 98.1 16 100 09/13/18 16:06 Room Air I&O Intake and Output 09/15/18 07:00 Intake Total 720 ml Balance 720 ml Intake Oral 720 ml # Voids 1 Current Medications: Meds: Current Medications Acetaminophen (Tylenol) 650 mg PRN Q4HRS PRN PO PAIN / TEMP; Start 09/03/18 at 18:15 Calcium Carbonate/ Glycine (Oscal) 500 mg QHS PO Last administered on 09/15/18at 21:02; Start 09/03/18 at 21:00 Vitamin D (Vitamin D3) 1,000 unit BID PO Last administered on 09/15/18 21:02; Start 09/03/18 at 21:00 Nitroglycerin (Nitrostat) 0.4 mg PRN Q5MIN PRN SL CHEST PAIN; Start 09/03/18 at 18:15 Senna/Docusate Sodium (Senna Plus) 1 tab PRN BID PRN PO CONSTIPATION; Start 09/03/18 at 18:15 Apixaban (Eliquis) 5 mg BID PO Last administered on 09/15/18at 21:02; Start 09/03/18 at 21:00 Ascorbic Acid (Vitamin C) 500 mg DAILY PO Last administered on 09/14/18 09:36; Start 09/04/18 at 09:00 Aspirin (Aspirin Enteric Coated) 81 mg DAILYWBKFT PO Last administered on 09/15/18at 08:00; Start 09/04/18 at 08:00 Atorvastatin Calcium (Lipitor) 40 mg QHS PO Last administered on 09/15/18 21:02; Start 09/03/18 at 21:00 Folic Acid (Folic Acid) 1 mg DAILY PO Last administered on 09/14/18 09:34; Start 09/04/18 at 09:00 Melatonin 6 mg QHS PO Last administered on 09/15/18 21:02; Start 09/03/18 at 21:00 Memantine (Namenda) 10 mg BID PO Last administered on 09/14/18 09:35; Start 09/03/18 at 21:00; Stop 09/14/18 at 18:44; Status DC Mirtazapine (Remeron) 7.5 mg QHS PO Last administered on 09/15/18 21:01; Start 09/03/18 at 21:00 Multivitamins/ Calcium (Thera-M Plus) 1 tab DAILY PO Last administered on 09/14/18 09:36; Start 09/04/18 at 09:00 Azelastine HCl (Astelin) 1 spray BID NS Last administered on 09/15/18 21:02; Start 09/03/18 at 21:00 Metoprolol Tartrate (Lopressor) 25 mg BID PO Last administered on 09/15/18 21:02; Start 09/03/18 at 21:00 Quetiapine Fumarate (SEROquel) 25 mg PRN BID PRN PO ANXIETY / AGITATION Last administered on 09/15/18 12:03; Start 09/03/18 at 18:30 Multi-Ingredient Ointment (Analgesic [place]) 1 kelsie PRN QID PRN TP MUSCLE PAIN; Start 09/03/18 at 18:30 Al Hydroxide/Mg Hydroxide (Mylanta Plus Xs) 15 ml PRN AFTMEALHC PRN PO DYSPEPSIA; Start 09/03/18 at 18:30 Magnesium Hydroxide (Milk Of Magnesia) 2,400 mg PRN QHS PRN PO CONSTIPATION; Start 09/03/18 at 18:30 Trazodone HCl (Desyrel) 25 mg 1X ONCE PO Last administered on 09/04/18 13:19; Start 09/04/18 at 13:00; Stop 09/04/18 at 13:10; Status DC Trazodone HCl (Desyrel) 25 mg 0900,1700 PO Last administered on 09/15/18 16:57; Start 09/04/18 at 17:00 Divalproex Sodium (Depakote Sprinkles) 125 mg 0900,1700 PO Last administered on 6/10/19at 16:55; Start 09/05/18 at 17:00 Risperidone (RisperDAL) 0.125 mg QHS PO Last administered on 09/13/18at 20:34; Start 09/09/18 at 21:00; Stop 09/13/18 at 23:49; Status DC Lorazepam (Ativan) 0.25 mg PRN Q2HR PRN PO ANXIETY / AGITATION Last administered on 09/13/18 11:28; Start 09/13/18 at 11:45 Risperidone (RisperDAL) 0.25 mg QHS PO Last administered on 09/15/18at 21:02; Start 09/14/18 at 21:00 Sertraline HCl (Zoloft) 25 mg DAILY PO Last administered on 09/15/18at 08:05; Start 09/15/18 at 09:00; Stop 09/17/18 at 12:00 Sertraline HCl (Zoloft) 50 mg DAILY PO ; Start 09/18/18 at 09:00 Active Scripts Active Reported Tylenol (Acetaminophen) 325 Mg Tablet 650 Mg PO PRN Q4HRS PRN NITROGLYCERIN SubLingual (Nitroglycerin) 0.4 Mg Tab.subl 0.4 Mg SL PRN Q5MIN PRN Senna Plus Tablet (Sennosides/Docusate Sodium) 1 Each Tablet 1 Each PO PRN BID PRN Vitamin D3 (Cholecalciferol (Vitamin D3)) 1,000 Unit Tablet 1,000 Unit PO BID Vitamin C (Ascorbic Acid) 500 Mg Tab.chew 500 Mg PO DAILY Multivitamins (Multivitamin) 1 Each Tablet 1 Each PO DAILY Remeron (Mirtazapine) 15 Mg Tablet 7.5 Mg PO QHS Metoprolol Tartrate 25 Mg Tablet 25 Mg PO BID Namenda (Memantine Hcl) 10 Mg Tablet 10 Mg PO BID Melatonin 3 Mg Tablet 6 Mg PO QHS Hydroxyzine Pamoate 50 Mg Capsule 50 Mg PO QID Folic Acid 1 Mg Tablet 1 Tab PO DAILY Eliquis (Apixaban) 5 Mg Tablet 5 Mg PO BID Calcium Carbonate 500 Mg Tablet 500 Mg PO QHS Azelastine Hcl 137 Mcg/0.137 Ml [place].pump 1 Spr NS BID Atorvastatin Calcium 40 Mg Tablet 40 Mg PO QHS Aspirin Ec (Aspirin) 81 Mg Tablet.dr 81 Mg PO DAILY I have reviewed the current psychotropics carefully including drug interactions. Risk benefit ratio favors no change other than as noted in my dictated progress note. Diagnosis: Problems: (1) Anxiety disorder (2) Dementia, vascular, with depression (3) Dementia, vascular, with delusions (4) Dementia in Alzheimer's disease with depression (5) Dementia in Alzheimer's disease with delusions (6) Impulse control disorder NELSON VASQUEZ MD Sep 15, 2018 22:35
[2018-09-16 05:35] VITALS: BP 128/79
[2018-09-16] MEDS: MULTIVITAMIN with MINERAL TABLET. PO SCH (07:34)
[2018-09-16] MEDS: ASCORBIC ACID 500 MG TABLET PO SCH (07:34)
[2018-09-16] MEDS: CHOLECALCIFEROL (VITAMIN D3) 1,000 UNIT TABLET PO SCH ×2 (07:34→19:15)
[2018-09-16] MEDS: APIXABAN 5 MG TABLET. PO SCH ×2 (07:34→19:15)
[2018-09-16] MEDS: DIVALPROEX 125 MG CAP.SPRINK PO SCH ×2 (07:34→16:50)
[2018-09-16] MEDS: ASPIRIN ENTERIC COATED 81 MG TABLET.DR. PO SCH (07:34)
[2018-09-16] MEDS: FOLIC ACID 1 MG TABLET PO SCH (07:34)
[2018-09-16] MEDS: traZODone 50 MG TABLET. PO SCH ×2 (07:35→16:50)
[2018-09-16] MEDS: METOPROLOL TART IMMED RELEASE 25 MG TABLET PO SCH ×2 (07:35→19:16)
[2018-09-16] MEDS: SERTRALINE 25 MG TABLET. PO SCH (07:37)
[2018-09-16] MEDS: AZELASTINE NASAL SPRAY 30ML BOTTLE. NS SCH ×2 (07:37→21:30)
--- NOTE | 2018-09-16 10:33 | NUR ---
Pt has been calm and confused this morning. Compliant with crushed medications in strawberry yogurt. No agitation noted.
[2018-09-16 16:24] VITALS: BP 140/97
[2018-09-16] MEDS: risperiDONE 0.25 MG TABLET. PO SCH (19:15)
[2018-09-16] MEDS: ATORVASTATIN CALCIUM 20 MG TABLET PO SCH (19:15)
[2018-09-16] MEDS: CALCIUM CARBONATE 500 MG TABLET PO SCH (19:16)
[2018-09-16] MEDS: MIRTAZAPINE 7.5 MG TABLET. PO SCH (19:16)
[2018-09-16] MEDS: MELATONIN 3 MG TABLET PO SCH (19:16)
--- NOTE | 2018-09-16 21:31 | NUR ---
Pt. this evening has been sitting in the day room calmly. He has been pleasantly confused and interacting appropriately with staff. No aggression or agitation noted. He has been compliant with taking his HS medications this evening crushed in pudding.
--- NOTE | 2018-09-16 22:40 | PDOC ---
Exam Note: Hu Note: Please also refer to the separate dictated note~for this date of service dictated separately.~Patient seen individually. Discussed the patient with Nursing staff reviewed the chart.~Reviewed interim history and current functioning. Reviewed vital signs,~Labs/ Radiology~and current medications noted below. Continue current treatment with the changes noted in the dictated addendum note Assessment: Vital Signs: Vital Signs Date Time Temp Pulse Resp B/P (MAP) Pulse Ox O2 Delivery O2 Flow Rate FiO2 09/16/18 19:16 73 140/97 09/16/18 16:24 97.9 17 96 09/13/18 16:06 Room Air I&O Intake and Output 09/16/18 07:00 Intake Total 960 ml Balance 960 ml Intake Oral 960 ml Current Medications: Meds: Current Medications Acetaminophen (Tylenol) 650 mg PRN Q4HRS PRN PO PAIN / TEMP; Start 09/03/18 at 18:15 Calcium Carbonate/ Glycine (Oscal) 500 mg QHS PO Last administered on 09/16/18 19:16; Start 09/03/18 at 21:00 Vitamin D (Vitamin D3) 1,000 unit BID PO Last administered on 09/16/18 19:15; Start 09/03/18 at 21:00 Nitroglycerin (Nitrostat) 0.4 mg PRN Q5MIN PRN SL CHEST PAIN; Start 09/03/18 at 18:15 Senna/Docusate Sodium (Senna Plus) 1 tab PRN BID PRN PO CONSTIPATION; Start 09/03/18 at 18:15 Apixaban (Eliquis) 5 mg BID PO Last administered on 09/16/18 19:15; Start 09/03/18 at 21:00 Ascorbic Acid (Vitamin C) 500 mg DAILY PO Last administered on 09/16/18 07:34; Start 09/04/18 at 09:00 Aspirin (Aspirin Enteric Coated) 81 mg DAILYWBKFT PO Last administered on 09/16/18 07:34; Start 09/04/18 at 08:00 Atorvastatin Calcium (Lipitor) 40 mg QHS PO Last administered on 09/16/18 19:15; Start 09/03/18 at 21:00 Folic Acid (Folic Acid) 1 mg DAILY PO Last administered on 09/16/18 07:34; Start 09/04/18 at 09:00 Melatonin 6 mg QHS PO Last administered on 09/16/18 19:16; Start 09/03/18 at 21:00 Memantine (Namenda) 10 mg BID PO Last administered on 09/14/18 09:35; Start 09/03/18 at 21:00; Stop 09/14/18 at 18:44; Status DC Mirtazapine (Remeron) 7.5 mg QHS PO Last administered on 09/16/18 19:16; Start 09/03/18 at 21:00 Multivitamins/ Calcium (Thera-M Plus) 1 tab DAILY PO Last administered on 09/16/18 07:34; Start 09/04/18 at 09:00 Azelastine HCl (Astelin) 1 spray BID NS Last administered on 09/16/18 21:30; Start 09/03/18 at 21:00 Metoprolol Tartrate (Lopressor) 25 mg BID PO Last administered on 09/16/18 19:16; Start 09/03/18 at 21:00 Quetiapine Fumarate (SEROquel) 25 mg PRN BID PRN PO ANXIETY / AGITATION Last administered on 09/15/18 12:03; Start 09/03/18 at 18:30 Multi-Ingredient Ointment (Analgesic [place]) 1 kelsie PRN QID PRN TP MUSCLE PAIN; Start 09/03/18 at 18:30 Al Hydroxide/Mg Hydroxide (Mylanta Plus Xs) 15 ml PRN AFTMEALHC PRN PO DYSPEPSIA; Start 09/03/18 at 18:30 Magnesium Hydroxide (Milk Of Magnesia) 2,400 mg PRN QHS PRN PO CONSTIPATION; Start 09/03/18 at 18:30 Trazodone HCl (Desyrel) 25 mg 1X ONCE PO Last administered on 09/04/18 13:19; Start 09/04/18 at 13:00; Stop 09/04/18 at 13:10; Status DC Trazodone HCl (Desyrel) 25 mg 0900,1700 PO Last administered on 09/16/18 16:50; Start 09/04/18 at 17:00 Divalproex Sodium (Depakote Sprinkles) 125 mg 0900,1700 PO Last administered on 6/11/19at 16:50; Start 09/05/18 at 17:00 Risperidone (RisperDAL) 0.125 mg QHS PO Last administered on 09/13/18at 20:34; Start 09/09/18 at 21:00; Stop 09/13/18 at 23:49; Status DC Lorazepam (Ativan) 0.25 mg PRN Q2HR PRN PO ANXIETY / AGITATION Last administered on 09/13/18 11:28; Start 09/13/18 at 11:45 Risperidone (RisperDAL) 0.25 mg QHS PO Last administered on 09/16/18at 19:15; Start 09/14/18 at 21:00 Sertraline HCl (Zoloft) 25 mg DAILY PO Last administered on 09/16/18at 07:37; Start 09/15/18 at 09:00; Stop 09/17/18 at 12:00 Sertraline HCl (Zoloft) 50 mg DAILY PO ; Start 09/18/18 at 09:00 Active Scripts Active Reported Tylenol (Acetaminophen) 325 Mg Tablet 650 Mg PO PRN Q4HRS PRN NITROGLYCERIN SubLingual (Nitroglycerin) 0.4 Mg Tab.subl 0.4 Mg SL PRN Q5MIN PRN Senna Plus Tablet (Sennosides/Docusate Sodium) 1 Each Tablet 1 Each PO PRN BID PRN Vitamin D3 (Cholecalciferol (Vitamin D3)) 1,000 Unit Tablet 1,000 Unit PO BID Vitamin C (Ascorbic Acid) 500 Mg Tab.chew 500 Mg PO DAILY Multivitamins (Multivitamin) 1 Each Tablet 1 Each PO DAILY Remeron (Mirtazapine) 15 Mg Tablet 7.5 Mg PO QHS Metoprolol Tartrate 25 Mg Tablet 25 Mg PO BID Namenda (Memantine Hcl) 10 Mg Tablet 10 Mg PO BID Melatonin 3 Mg Tablet 6 Mg PO QHS Hydroxyzine Pamoate 50 Mg Capsule 50 Mg PO QID Folic Acid 1 Mg Tablet 1 Tab PO DAILY Eliquis (Apixaban) 5 Mg Tablet 5 Mg PO BID Calcium Carbonate 500 Mg Tablet 500 Mg PO QHS Azelastine Hcl 137 Mcg/0.137 Ml [place].pump 1 Spr NS BID Atorvastatin Calcium 40 Mg Tablet 40 Mg PO QHS Aspirin Ec (Aspirin) 81 Mg Tablet.dr 81 Mg PO DAILY I have reviewed the current psychotropics carefully including drug interactions. Risk benefit ratio favors no change other than as noted in my dictated progress note. Diagnosis: Problems: (1) Anxiety disorder (2) Dementia, vascular, with depression (3) Dementia, vascular, with delusions (4) Dementia in Alzheimer's disease with depression (5) Dementia in Alzheimer's disease with delusions (6) Impulse control disorder NELSON VASQUEZ MD Sep 16, 2018 22:40
[2018-09-16] MEDS: QUEtiapine 25 MG TABLET. PO PRN (23:23)
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
[2018-09-17 05:54] VITALS: BP 124/82
[2018-09-17] MEDS: ASPIRIN ENTERIC COATED 81 MG TABLET.DR. PO SCH (07:52)
[2018-09-17] MEDS: traZODone 50 MG TABLET. PO SCH ×2 (07:53→16:53)
[2018-09-17] MEDS: APIXABAN 5 MG TABLET. PO SCH ×2 (07:53→19:16)
[2018-09-17] MEDS: DIVALPROEX 125 MG CAP.SPRINK PO SCH ×2 (07:53→16:53)
[2018-09-17] MEDS: FOLIC ACID 1 MG TABLET PO SCH (07:53)
[2018-09-17] MEDS: AZELASTINE NASAL SPRAY 30ML BOTTLE. NS SCH ×2 (07:53→22:44)
[2018-09-17] MEDS: METOPROLOL TART IMMED RELEASE 25 MG TABLET PO SCH ×2 (07:54→19:16)
[2018-09-17] MEDS: CHOLECALCIFEROL (VITAMIN D3) 1,000 UNIT TABLET PO SCH ×2 (07:54→19:15)
[2018-09-17] MEDS: SERTRALINE 25 MG TABLET. PO SCH (07:54)
[2018-09-17] MEDS: MULTIVITAMIN with MINERAL TABLET. PO SCH (07:54)
[2018-09-17] MEDS: ASCORBIC ACID 500 MG TABLET PO SCH (07:54)
[2018-09-17 08:34] LABS: VAL ACID 19 mcg/mL (50-100)
--- NOTE | 2018-09-17 09:17 | NUR ---
Pt is confused, calm, cooperative. No agitation or aggression. No hallucinations or delusions. He is cooperative with his medication whole this am and is compliant with his assessment.
--- NOTE | 2018-09-17 10:41 | NUR ---
SW spoke to pt. daughter, Dilma Saleem, regarding pt. discharge postponed to 09/22/2018 due to behaviors. SW also shared treatment team has been rescheduled and therefore Dilma would not be receiving a treatment team call on . SW left msg. for Frida, [facility], to discuss discharge scheduled for 09/22/2018.
--- NOTE | 2018-09-17 15:01 | NUR ---
GERARDO spoke to Frida, Nurse at [facility], regarding pt. discharge rescheduled for 09/22/2018. SW also informed Frida, treatment team has been moved to 09/19/2018. Frida confirmed [employer], supplies PT/OT services for pt. GERARDO had received a call earlier from [facility] but had not confirmed pt. was here for confidentiality reasons. GERARDO did contact [facility], with pt. daughter permission, to verify pt. will be here until 09/22/2018.
[2018-09-17 15:39] VITALS: BP 114/75
[2018-09-17] MEDS: MIRTAZAPINE 7.5 MG TABLET. PO SCH (19:15)
[2018-09-17] MEDS: CALCIUM CARBONATE 500 MG TABLET PO SCH (19:15)
[2018-09-17] MEDS: ATORVASTATIN CALCIUM 20 MG TABLET PO SCH (19:15)
[2018-09-17] MEDS: MELATONIN 3 MG TABLET PO SCH (19:16)
[2018-09-17] MEDS: risperiDONE 0.25 MG TABLET. PO SCH (19:16)
[2018-09-17] MEDS: QUEtiapine 25 MG TABLET. PO PRN (22:12)
--- NOTE | 2018-09-17 22:37 | NUR ---
Nursing note: He was sitting in the day room this evening eating ice cream when this communications writer came on shift. He been calm, pleasant, and interacting appropriately with staff. No sign of aggression or agitated noted. He has been med compliant with taking his HS medications this evening. This communications writer was notified that pt. was still awake and being restless in bed. PRN medication given, see MAR.
--- NOTE | 2018-09-17 22:57 | PDOC ---
Exam Note: Hu Note: Please also refer to the separate dictated note~for this date of service dictated separately.~Patient seen individually. Discussed the patient with Nursing staff reviewed the chart.~Reviewed interim history and current functioning. Reviewed vital signs,~Labs/ Radiology~and current medications noted below. Continue current treatment with the changes noted in the dictated addendum note Assessment: Vital Signs: Vital Signs Date Time Temp Pulse Resp B/P (MAP) Pulse Ox O2 Delivery O2 Flow Rate FiO2 09/17/18 19:16 69 114/75 09/17/18 15:39 97.2 20 99 09/13/18 16:06 Room Air I&O Intake and Output 09/17/18 06:59 Intake Total 1320 ml Balance 1320 ml Intake Oral 1320 ml Labs: Laboratory Tests Test 09/17/18 07:39 Valproic Acid Level 19 mcg/mL (50-100) L Valproic Acid Last Dose Date 09/16/18 Valproic Acid Last Dose Time 1700 Current Medications: Meds: Current Medications Acetaminophen (Tylenol) 650 mg PRN Q4HRS PRN PO PAIN / TEMP; Start 09/03/18 at 18:15 Calcium Carbonate/ Glycine (Oscal) 500 mg QHS PO Last administered on 09/17/18at 19:15; Start 09/03/18 at 21:00 Vitamin D (Vitamin D3) 1,000 unit BID PO Last administered on 09/17/18at 19:15; Start 09/03/18 at 21:00 Nitroglycerin (Nitrostat) 0.4 mg PRN Q5MIN PRN SL CHEST PAIN; Start 09/03/18 at 18:15 Senna/Docusate Sodium (Senna Plus) 1 tab PRN BID PRN PO CONSTIPATION; Start 09/03/18 at 18:15 Apixaban (Eliquis) 5 mg BID PO Last administered on 09/17/18at 19:16; Start 09/03/18 at 21:00 Ascorbic Acid (Vitamin C) 500 mg DAILY PO Last administered on 09/17/18at 07:54; Start 09/04/18 at 09:00 Aspirin (Aspirin Enteric Coated) 81 mg DAILYWBKFT PO Last administered on 09/17/18at 07:52; Start 09/04/18 at 08:00 Atorvastatin Calcium (Lipitor) 40 mg QHS PO Last administered on 09/17/18 19:15; Start 09/03/18 at 21:00 Folic Acid (Folic Acid) 1 mg DAILY PO Last administered on 09/17/18 07:53; Start 09/04/18 at 09:00 Melatonin 6 mg QHS PO Last administered on 09/17/18 19:16; Start 09/03/18 at 21:00 Memantine (Namenda) 10 mg BID PO Last administered on 09/14/18 09:35; Start 09/03/18 at 21:00; Stop 09/14/18 at 18:44; Status DC Mirtazapine (Remeron) 7.5 mg QHS PO Last administered on 09/17/18 19:15; Start 09/03/18 at 21:00 Multivitamins/ Calcium (Thera-M Plus) 1 tab DAILY PO Last administered on 07:54; Start 09/04/18 at 09:00 Azelastine HCl (Astelin) 1 spray BID NS Last administered on 09/17/18 22:44; Start 09/03/18 at 21:00 Metoprolol Tartrate (Lopressor) 25 mg BID PO Last administered on 09/17/18 19:16; Start 09/03/18 at 21:00 Quetiapine Fumarate (SEROquel) 25 mg PRN BID PRN PO ANXIETY / AGITATION Last administered on 09/17/18 22:12; Start 09/03/18 at 18:30 Multi-Ingredient Ointment (Analgesic [place]) 1 kelsie PRN QID PRN TP MUSCLE PAIN; Start 09/03/18 at 18:30 Al Hydroxide/Mg Hydroxide (Mylanta Plus Xs) 15 ml PRN AFTMEALHC PRN PO DYSPEPSIA; Start 09/03/18 at 18:30 Magnesium Hydroxide (Milk Of Magnesia) 2,400 mg PRN QHS PRN PO CONSTIPATION; Start 09/03/18 at 18:30 Trazodone HCl (Desyrel) 25 mg 1X ONCE PO Last administered on 09/04/18 13:19; Start 09/04/18 at 13:00; Stop 09/04/18 at 13:10; Status DC Trazodone HCl (Desyrel) 25 mg 0900,1700 PO Last administered on 09/17/18 16:53; Start 09/04/18 at 17:00 Divalproex Sodium (Depakote Sprinkles) 125 mg 0900,1700 PO Last administered on 09/17/18 16:53; Start 09/05/18 at 17:00 Risperidone (RisperDAL) 0.125 mg QHS PO Last administered on 09/13/18 20:34; Start 09/09/18 at 21:00; Stop 09/13/18 at 23:49; Status DC Lorazepam (Ativan) 0.25 mg PRN Q2HR PRN PO ANXIETY / AGITATION Last administer ed on 09/13/18 11:28; Start 09/13/18 at 11:45 Risperidone (RisperDAL) 0.25 mg QHS PO Last administered on 09/17/18 19:16; Start 09/14/18 at 21:00 Sertraline HCl (Zoloft) 25 mg DAILY PO Last administered on 09/17/18 07:54; Start 09/15/18 at 09:00; Stop 09/17/18 at 12:00; Status DC Sertraline HCl (Zoloft) 50 mg DAILY PO ; Start 09/18/18 at 09:00 Active Scripts Active Reported Tylenol (Acetaminophen) 325 Mg Tablet 650 Mg PO PRN Q4HRS PRN NITROGLYCERIN SubLingual (Nitroglycerin) 0.4 Mg Tab.subl 0.4 Mg SL PRN Q5MIN PRN Senna Plus Tablet (Sennosides/Docusate Sodium) 1 Each Tablet 1 Each PO PRN BID PRN Vitamin D3 (Cholecalciferol (Vitamin D3)) 1,000 Unit Tablet 1,000 Unit PO BID Vitamin C (Ascorbic Acid) 500 Mg Tab.chew 500 Mg PO DAILY Multivitamins (Multivitamin) 1 Each Tablet 1 Each PO DAILY Remeron (Mirtazapine) 15 Mg Tablet 7.5 Mg PO QHS Metoprolol Tartrate 25 Mg Tablet 25 Mg PO BID Namenda (Memantine Hcl) 10 Mg Tablet 10 Mg PO BID Melatonin 3 Mg Tablet 6 Mg PO QHS Hydroxyzine Pamoate 50 Mg Capsule 50 Mg PO QID Folic Acid 1 Mg Tablet 1 Tab PO DAILY Eliquis (Apixaban) 5 Mg Tablet 5 Mg PO BID Calcium Carbonate 500 Mg Tablet 500 Mg PO QHS Azelastine Hcl 137 Mcg/0.137 Ml [place].pump 1 Spr NS BID Atorvastatin Calcium 40 Mg Tablet 40 Mg PO QHS Aspirin Ec (Aspirin) 81 Mg Tablet. 81 Mg PO DAILY I have reviewed the current psychotropics carefully including drug interactions. Risk benefit ratio favors no change other than as noted in my dictated progress note. Diagnosis: Problems: (1) Anxiety disorder (2) Dementia, vascular, with depression (3) Dementia, vascular, with delusions (4) Dementia in Alzheimer's disease with depression (5) Dementia in Alzheimer's disease with delusions (6) Impulse control disorder NELSON VASQUEZ MD Sep 17, 2018 22:57
--- NOTE | 2018-09-18 03:11 | PN ---
DATE: 09/16/2018 PSYCHIATRIC PROGRESS NOTE This late entry of 09/16/2018 covers the elements not covered in my initial note. SUBJECTIVE: I met with the patient in the evening. The patient slept 6 hours the previous night. He did well the previous night and has been reasonable during the day on 09/16/2018. He is still somewhat paranoid, certainly very confused. REVIEW OF SYSTEMS: No CV, , pulmonary, eye, ENT system symptoms on review. Reliability poor. MENTAL STATUS EXAM: Oriented to himself. Insight, judgment, recent and remote memory, attention, concentration, fund of knowledge poor, consistent with his diagnosis mentioned in my initial note. PLAN: No change from initial note. We will increase Risperdal further if psychotic symptoms resurface and may adjust Zoloft further as well. MAN Brinda VASQUEZ MD DR: OBDULIA/rosa elena JOB#: [id number] / [id number]
[2018-09-18 06:13] VITALS: BP 141/89
[2018-09-18] MEDS: traZODone 50 MG TABLET. PO SCH ×2 (07:42→16:52)
[2018-09-18] MEDS: APIXABAN 5 MG TABLET. PO SCH ×2 (07:42→19:28)
[2018-09-18] MEDS: CHOLECALCIFEROL (VITAMIN D3) 1,000 UNIT TABLET PO SCH ×2 (07:42→19:28)
[2018-09-18] MEDS: ASPIRIN ENTERIC COATED 81 MG TABLET.DR. PO SCH (07:42)
[2018-09-18] MEDS: METOPROLOL TART IMMED RELEASE 25 MG TABLET PO SCH ×2 (07:43→19:28)
[2018-09-18] MEDS: MULTIVITAMIN with MINERAL TABLET. PO SCH (07:43)
[2018-09-18] MEDS: ASCORBIC ACID 500 MG TABLET PO SCH (07:43)
[2018-09-18] MEDS: AZELASTINE NASAL SPRAY 30ML BOTTLE. NS SCH ×2 (07:43→19:26)
[2018-09-18] MEDS: DIVALPROEX 125 MG CAP.SPRINK PO SCH ×2 (07:43→16:52)
[2018-09-18] MEDS: FOLIC ACID 1 MG TABLET PO SCH (07:43)
[2018-09-18] MEDS: SERTRALINE 25 MG TABLET. PO SCH (07:45)
--- NOTE | 2018-09-18 08:59 | NUR ---
GERARDO faxed updated pt. paperwork to Frida, nurse at [facility], in preparation for pt. discharging on 09/22/2018. Frida will call with transport time.
--- NOTE | 2018-09-18 09:00 | NUR ---
Nursing Note: Assumed care of pt approx 0700. Pt wandering thompson and into day room. Pt reported that pt was slightly agitated just before breakfast. Upon entering dinning room, pt was up from table and staff was encouraging pt to drink orange juice. Inserted pt's meds crushed into the orange juice and pt consumed all.
--- NOTE | 2018-09-18 09:46 | NUR ---
WEEKLY ACTIVITY THERAPY NOTE Date of Admission: 09/03/2018 Date of AT Assessment: 09/05/2018 Goal aimed: to increase socialization and engagement Initial Goal: Pt. will participate in at least three Activity Therapy groups or individual sessions before discharge. Goal changed 09/11/18: Pt. will participate in at least three Activity Therapy individual or group sessions per week Weekly progress towards goal: 2/3 Group participation level: minimal Weekly highlights: sat for half a group on Behaviors observed: wandering, sleeping often, generally keeps to self, more easily redirectable, stares at times, can be difficult to engage Plan: no change to goal Beneficial adaptations: repeat prompting, direct prompting, more response to gross motor activities
--- NOTE | 2018-09-18 10:03 | NUR ---
Nursing Note: Pt sitting calmly in day room.
--- NOTE | 2018-09-18 10:35 | NUR ---
GERARDO spoke to Frida, nurse at [facility], to discuss discharge scheduled for 09/22/2018 and to verify she had received the fax sent earlier this morning. Frida will speak to pt. daughter and call back with a transport time.
--- NOTE | 2018-09-18 10:37 | NUR ---
WEEKLY NOTE Pt. slept 4.5 hours last night. Pt. has been calm, compliant, but restless in bed. Pt. has had some moments of agitation but is often able to be redirected. Pt. continues to be confused. Medications continue to be adjusted and monitored. Pt. will discharge on 09/22/2018 back to [facility].
--- NOTE | 2018-09-18 10:46 | NUR ---
[facility] Social Work Discharge Planning Form Patient Name ERIC BALL Admit Date: 09/03/2018 DISCHARGE PLAN Discharge Destination: [facility] Care Assessment: NA Level II Assessment: NA Transportation: Facility to transport pt. on 09/22/2018. Facility will call with transport time. Special Instructions/Notes: Please fax discharge paperwork and medication list to [phone] DISCHARGE TO FACILITY Facility: [facility] Address: [address] [place] [id number] Contact Name: Nurse RADHA Galicia PCP: Dr. Delvalle Psychiatrist: Dr. Galvan
[2018-09-18 16:00] VITALS: BP 129/93
[2018-09-18] MEDS: risperiDONE 0.25 MG TABLET. PO SCH (19:26)
[2018-09-18] MEDS: ATORVASTATIN CALCIUM 20 MG TABLET PO SCH (19:26)
[2018-09-18] MEDS: MELATONIN 3 MG TABLET PO SCH (19:28)
[2018-09-18] MEDS: CALCIUM CARBONATE 500 MG TABLET PO SCH (19:28)
[2018-09-18] MEDS: MIRTAZAPINE 7.5 MG TABLET. PO SCH (19:28)
--- NOTE | 2018-09-18 22:18 | PDOC ---
Exam Note: Hu Note: Please also refer to the separate dictated note~for this date of service dictated separately.~Patient seen individually. Discussed the patient with Nursing staff reviewed the chart.~Reviewed interim history and current functioning. Reviewed vital signs,~Labs/ Radiology~and current medications noted below. Continue current treatment with the changes noted in the dictated addendum note Assessment: Vital Signs: Vital Signs Date Time Temp Pulse Resp B/P (MAP) Pulse Ox O2 Delivery O2 Flow Rate FiO2 09/18/18 19:28 65 129/93 09/18/18 16:00 97.0 18 95 09/18/18 06:13 Room Air I&O Intake and Output 09/18/18 07:00 Intake Total 1160 ml Balance 1160 ml Intake Oral 1160 ml Current Medications: Meds: Current Medications Acetaminophen (Tylenol) 650 mg PRN Q4HRS PRN PO PAIN / TEMP; Start 09/03/18 at 18:15 Calcium Carbonate/ Glycine (Oscal) 500 mg QHS PO Last administered on 09/18/18 19:28; Start 09/03/18 at 21:00 Vitamin D (Vitamin D3) 1,000 unit BID PO Last administered on 09/18/18 19:28; Start 09/03/18 at 21:00 Nitroglycerin (Nitrostat) 0.4 mg PRN Q5MIN PRN SL CHEST PAIN; Start 09/03/18 at 18:15 Senna/Docusate Sodium (Senna Plus) 1 tab PRN BID PRN PO CONSTIPATION; Start 09/03/18 at 18:15 Apixaban (Eliquis) 5 mg BID PO Last administered on 09/18/18 19:28; Start 09/03/18 at 21:00 Ascorbic Acid (Vitamin C) 500 mg DAILY PO Last administered on 09/18/18 07:43; Start 09/04/18 at 09:00 Aspirin (Aspirin Enteric Coated) 81 mg DAILYWBKFT PO Last administered on 09/18/18 07:42; Start 09/04/18 at 08:00 Atorvastatin Calcium (Lipitor) 40 mg QHS PO Last administered on 09/18/18 19:26; Start 09/03/18 at 21:00 Folic Acid (Folic Acid) 1 mg DAILY PO Last administered on 09/18/18 07:43; Start 09/04/18 at 09:00 Melatonin 6 mg QHS PO Last administered on 09/18/18 19:28; Start 09/03/18 at 21:00 Memantine (Namenda) 10 mg BID PO Last administered on 09/14/18 09:35; Start 09/03/18 at 21:00; Stop 09/14/18 at 18:44; Status DC Mirtazapine (Remeron) 7.5 mg QHS PO Last administered on 09/18/18 19:28; Start 09/03/18 at 21:00 Multivitamins/ Calcium (Thera-M Plus) 1 tab DAILY PO Last administered on 09/18/18 07:43; Start 09/04/18 at 09:00 Azelastine HCl (Astelin) 1 spray BID NS Last administered on 09/18/18 19:26; Start 09/03/18 at 21:00 Metoprolol Tartrate (Lopressor) 25 mg BID PO Last administered on 09/18/18 19:28; Start 09/03/18 at 21:00 Quetiapine Fumarate (SEROquel) 25 mg PRN BID PRN PO ANXIETY / AGITATION Last administered on 09/17/18 22:12; Start 09/03/18 at 18:30 Multi-Ingredient Ointment (Analgesic Downey) 1 kelsie PRN QID PRN TP MUSCLE PAIN; Start 09/03/18 at 18:30 Al Hydroxide/Mg Hydroxide (Mylanta Plus Xs) 15 ml PRN AFTMEALHC PRN PO DYSPEPSIA; Start 09/03/18 at 18:30 Magnesium Hydroxide (Milk Of Magnesia) 2,400 mg PRN QHS PRN PO CONSTIPATION; Start 09/03/18 at 18:30 Trazodone HCl (Desyrel) 25 mg 1X ONCE PO Last administered on 09/04/18 13:19; Start 09/04/18 at 13:00; Stop 09/04/18 at 13:10; Status DC Trazodone HCl (Desyrel) 25 mg 0900,1700 PO Last administered on 09/18/18 16:52; Start 09/04/18 at 17:00 Divalproex Sodium (Depakote Sprinkles) 125 mg 0900,1700 PO Last administered on 09/18/18 16:52; Start 09/05/18 at 17:00; Stop 09/18/18 at 18:24; Status DC Risperidone (RisperDAL) 0.125 mg QHS PO Last administered on 09/13/18at 20:34; Start 09/09/18 at 21:00; Stop 09/13/18 at 23:49; Status DC Lorazepam (Ativan) 0.25 mg PRN Q2HR PRN PO ANXIETY / AGITATION Last administered on 09/13/18at 11:28; Start 09/13/18 at 11:45 Risperidone (RisperDAL) 0.25 mg QHS PO Last administered on 09/18/18 19:26; Start 09/14/18 at 21:00 Sertraline HCl (Zoloft) 25 mg DAILY PO Last administered on 09/17/18at 07:54; Start 09/15/18 at 09:00; Stop 09/17/18 at 12:00; Status DC Sertraline HCl (Zoloft) 50 mg DAILY PO Last administered on 09/18/18at 07:45; Start 09/18/18 at 09:00 Divalproex Sodium (Depakote Sprinkles) 250 mg 0900,1700 PO ; Start 09/19/18 at 09:00 Active Scripts Active Reported Tylenol (Acetaminophen) 325 Mg Tablet 650 Mg PO PRN Q4HRS PRN NITROGLYCERIN SubLingual (Nitroglycerin) 0.4 Mg Tab.subl 0.4 Mg SL PRN Q5MIN PRN Senna Plus Tablet (Sennosides/Docusate Sodium) 1 Each Tablet 1 Each PO PRN BID PRN Vitamin D3 (Cholecalciferol (Vitamin D3)) 1,000 Unit Tablet 1,000 Unit PO BID Vitamin C (Ascorbic Acid) 500 Mg Tab.chew 500 Mg PO DAILY Multivitamins (Multivitamin) 1 Each Tablet 1 Each PO DAILY Remeron (Mirtazapine) 15 Mg Tablet 7.5 Mg PO QHS Metoprolol Tartrate 25 Mg Tablet 25 Mg PO BID Namenda (Memantine Hcl) 10 Mg Tablet 10 Mg PO BID Melatonin 3 Mg Tablet 6 Mg PO QHS Hydroxyzine Pamoate 50 Mg Capsule 50 Mg PO QID Folic Acid 1 Mg Tablet 1 Tab PO DAILY Eliquis (Apixaban) 5 Mg Tablet 5 Mg PO BID Calcium Carbonate 500 Mg Tablet 500 Mg PO QHS Azelastine Hcl 137 Mcg/0.137 Ml Hernando.pump 1 Spr NS BID Atorvastatin Calcium 40 Mg Tablet 40 Mg PO QHS Aspirin Ec (Aspirin) 81 Mg Tablet. 81 Mg PO DAILY I have reviewed the current psychotropics carefully including drug interactions. Risk benefit ratio favors no change other than as noted in my dictated progress note. Diagnosis: Problems: (1) Anxiety disorder (2) Dementia, vascular, with depression (3) Dementia, vascular, with delusions (4) Dementia in Alzheimer's disease with depression (5) Dementia in Alzheimer's disease with delusions (6) Impulse control disorder NELSON VASQUEZ MD Sep 18, 2018 22:18
--- NOTE | 2018-09-18 22:46 | NUR ---
Pt sitting in day room at shift change. Pt disorganized, restless, and irritable at times this evening. Pt cooperative with assessment and resistive but compliant with medications administered crushed in pudding.
[2018-09-19 06:32] VITALS: BP 143/91
[2018-09-19] MEDS: APIXABAN 5 MG TABLET. PO SCH ×2 (08:16→19:44)
[2018-09-19] MEDS: MULTIVITAMIN with MINERAL TABLET. PO SCH (08:16)
[2018-09-19] MEDS: ASPIRIN ENTERIC COATED 81 MG TABLET.DR. PO SCH (08:16)
[2018-09-19] MEDS: FOLIC ACID 1 MG TABLET PO SCH (08:17)
[2018-09-19] MEDS: SERTRALINE 25 MG TABLET. PO SCH (08:17)
[2018-09-19] MEDS: CHOLECALCIFEROL (VITAMIN D3) 1,000 UNIT TABLET PO SCH ×2 (08:17→19:43)
[2018-09-19] MEDS: METOPROLOL TART IMMED RELEASE 25 MG TABLET PO SCH ×2 (08:17→19:58)
[2018-09-19] MEDS: AZELASTINE NASAL SPRAY 30ML BOTTLE. NS SCH ×2 (08:18→19:58)
[2018-09-19] MEDS: traZODone 50 MG TABLET. PO SCH ×2 (08:18→17:26)
[2018-09-19] MEDS: ASCORBIC ACID 500 MG TABLET PO SCH (08:19)
[2018-09-19] MEDS: DIVALPROEX 125 MG CAP.SPRINK PO SCH ×2 (08:20→17:25)
--- NOTE | 2018-09-19 13:36 | NUR ---
SW spoke to Mae, [facility], who was inquiring on pt. discharge. [facility] provides PT/OT for pt. at his facility. Pt. is set to discharge on 09/22/2018.
[2018-09-19 15:19] VITALS: BP 98/66
--- NOTE | 2018-09-19 16:58 | NUR ---
Patient refused to get up for breakfast today and said he was "too tired" he ambulated to the day room in his brief and sat down, he then refused to get up and put pants on, he was non-verbal the entire morning, he refused his am medications until his family member was in the dining room and assisted with his am meds, he was verbal during lunch time-word salad, he is A&O x 1 to self
[2018-09-19] MEDS: MELATONIN 3 MG TABLET PO SCH (19:43)
[2018-09-19] MEDS: ATORVASTATIN CALCIUM 20 MG TABLET PO SCH (19:43)
[2018-09-19] MEDS: MIRTAZAPINE 7.5 MG TABLET. PO SCH (19:43)
[2018-09-19] MEDS: CALCIUM CARBONATE 500 MG TABLET PO SCH (19:44)
[2018-09-19] MEDS: risperiDONE 0.25 MG TABLET. PO SCH (19:44)
--- NOTE | 2018-09-19 22:19 | NUR ---
Pt wandering in day room at shift change. Pt calm, but disorganized and restless. Pt cooperative with assessment and cares, compliant with medications crushed in pudding. Pt requires a lot of verbal cues in order to complete tasks and speaks mostly in word salad although at times able to make sense with his words.
--- NOTE | 2018-09-19 22:40 | PDOC ---
Exam Note: Hu Note: Please also refer to the separate dictated note~for this date of service dictated separately.~Patient seen individually. Discussed the patient with Nursing staff reviewed the chart.~Reviewed interim history and current functioning. Reviewed vital signs,~Labs/ Radiology~and current medications noted below. Continue current treatment with the changes noted in the dictated addendum note Assessment: Vital Signs/I&O: Vital Signs Date Time Temp Pulse Resp B/P (MAP) Pulse Ox O2 Delivery O2 Flow Rate FiO2 09/19/18 19:58 82 98/66 09/19/18 15:19 97.8 22 99 09/19/18 06:32 Room Air I & O 09/18/18 09/18/18 09/19/18 15:00 23:00 07:00 Intake Total 720 ml 240 ml Balance 720 ml 240 ml Current Medications: Meds: Current Medications Medications (Trade) Dose Ordered Sig/Marlin Route PRN Reason Start Time Stop Time Status Last Admin Dose Admin Divalproex Sodium (Depakote Sprinkles) 250 mg 0900,1700 PO 09/19/18 09:00 09/19/18 17:25 I have reviewed the current psychotropics carefully including drug interactions. Risk benefit ratio favors no change other than as noted in my dictated progress note. Diagnosis: Problems: (1) Anxiety disorder (2) Dementia, vascular, with depression (3) Dementia, vascular, with delusions (4) Dementia in Alzheimer's disease with depression (5) Dementia in Alzheimer's disease with delusions (6) Impulse control disorder NELSON VASQUEZ MD Sep 19, 2018 22:40
--- NOTE | 2018-09-20 00:57 | PN ---
DATE: 09/17/2018 PSYCHIATRIC PROGRESS NOTE This late entry 09/17/2018 covers elements not covered in my initial note. SUBJECTIVE: I met with the patient in the evening. The patient slept 3-3/4 hours previous night. He was somewhat agitated previous night, received Seroquel, but does take his medications whole. REVIEW OF SYSTEMS: No CV, , pulmonary, eye, ENT system symptoms on review. Reliability poor. MENTAL STATUS EXAM: Oriented to himself. Insight, judgment, recent and remote memory, attention, concentration, fund of knowledge poor, consistent with his diagnosis mentioned in my initial note. PLAN: No change from initial note, but we may consider increasing Risperdal and adjusting Depakote if mood lability resurfaces. MAN Brinda VASQUEZ MD DR: OBDULIA/rosa elena JOB#: [id number] / [id number]
--- NOTE | 2018-09-20 03:48 | PN ---
DATE: 09/18/2018 PSYCHIATRIC PROGRESS NOTE This is a late entry 09/18/2018, covers elements are not covered in my initial note. SUBJECTIVE: I met with the patient in the evening of 09/18/2018. The patient slept 4-1/2 hours previous night. He did well for part of the day, but remains somewhat paranoid, suspicious and little anxious. Valproic acid level is 19. REVIEW OF SYSTEMS: No CV, , pulmonary, eye, ENT system symptoms on review. Reliability poor. MENTAL STATUS EXAM: Oriented to himself. Insight, judgment, recent and remote memory, attention, concentration, fund of knowledge poor consistent with his diagnosis mentioned in my initial note. PLAN: Increase Depakote from 125 b.i.d. to 250 b.i.d. Check CBC, CMP, valproic acid level, ammonia level in 3 days. Rest unchanged for now. NELSON VASQUEZ MD DR: OBDULIA/rosa elena JOB#: [id number] / [id number]
[2018-09-20 06:02] VITALS: BP 124/77
[2018-09-20] MEDS: ASPIRIN ENTERIC COATED 81 MG TABLET.DR. PO SCH (08:43)
[2018-09-20] MEDS: AZELASTINE NASAL SPRAY 30ML BOTTLE. NS SCH ×2 (08:43→19:22)
[2018-09-20] MEDS: DIVALPROEX 125 MG CAP.SPRINK PO SCH ×2 (08:44→17:09)
[2018-09-20] MEDS: APIXABAN 5 MG TABLET. PO SCH ×2 (08:44→19:20)
[2018-09-20] MEDS: traZODone 50 MG TABLET. PO SCH ×2 (08:44→17:09)
[2018-09-20] MEDS: FOLIC ACID 1 MG TABLET PO SCH (08:44)
[2018-09-20] MEDS: SERTRALINE 25 MG TABLET. PO SCH (08:48)
[2018-09-20] MEDS: ASCORBIC ACID 500 MG TABLET PO SCH (08:48)
[2018-09-20] MEDS: METOPROLOL TART IMMED RELEASE 25 MG TABLET PO SCH ×2 (08:48→19:21)
[2018-09-20] MEDS: MULTIVITAMIN with MINERAL TABLET. PO SCH (08:48)
[2018-09-20] MEDS: CHOLECALCIFEROL (VITAMIN D3) 1,000 UNIT TABLET PO SCH ×2 (08:48→19:20)
--- NOTE | 2018-09-20 10:37 | NUR ---
Pt is confused, calm, cooperative. No agitation or aggression. No hallucinations or delusions. He is cooperative with his medication this am and is compliant with his assessment.
[2018-09-20 13:39] LABS: BASO % 0 % (0-3); EOS # 0.1 x10^3/uL (0.0-0.7); EOS % 1 % (0-3); HEMATOCRIT 33.2 % (39.0-53.0); HEMOGLOBIN 10.8 g/dL (13.0-17.5); LYMPH # 1.2 x10^3/uL (1.0-4.8); LYMPH % 12 % (24-48); MEAN CORPUSCULAR HEMOGLOBIN 30 pg (25-35); MEAN CORPUSCULAR HGB CONC 33 g/dL (31-37); MEAN CORPUSCULAR VOLUME 90 fL (79-100); MONO % 10 % (0-9); NEUT # 7.5 x10^3uL (1.8-7.7); NEUT % 77 % (31-73); PLATELET COUNT 262 x10^3/uL (140-400); RED BLOOD COUNT 3.67 x10^6/uL (4.30-5.70); WHITE BLOOD COUNT 9.7 x10^3/uL (4.0-11.0)
[2018-09-20 13:48] LABS: ALBUMIN 3.4 g/dL (3.4-5.0); ALBUMIN/GLOBULIN RATIO 1.1 (1.0-1.7); CALCIUM 8.9 mg/dL (8.5-10.1); CREATININE 1.4 mg/dL (0.7-1.3); POTASSIUM 4.6 mmol/L (3.5-5.1); TOTAL BILIRUBIN 0.4 mg/dL (0.2-1.0); TOTAL PROTEIN 6.4 g/dL (6.4-8.2)
[2018-09-20] MEDS: LORazepam 0.5 MG TABLET PO PRN (13:52)
--- NOTE | 2018-09-20 14:07 | NUR ---
During afternoon group pt was unable to sit and focus on a task, intrusive to others, unable to redirect and delusion that "girls are being raped." RT redirected pt to hallway where pt pushed and pulled on doors to the day room. PRN ativan given.
[2018-09-20 15:40] VITALS: BP 126/85
[2018-09-20] MEDS: MIRTAZAPINE 7.5 MG TABLET. PO SCH (19:20)
[2018-09-20] MEDS: CALCIUM CARBONATE 500 MG TABLET PO SCH (19:20)
[2018-09-20] MEDS: risperiDONE 0.25 MG TABLET. PO SCH (19:21)
[2018-09-20] MEDS: MELATONIN 3 MG TABLET PO SCH (19:21)
[2018-09-20] MEDS: ATORVASTATIN CALCIUM 20 MG TABLET PO SCH (19:21)
--- NOTE | 2018-09-20 22:32 | NUR ---
Pt sitting in day room, interacting with peers at shift change. Pt calm, confused, and disorganized but pleasant. Pt cooperative with assessment and cares, medications administered crushed in pudding which pt consumed. No behaviors noted thus far this shift.
--- NOTE | 2018-09-20 22:48 | PDOC ---
Exam Note: Hu Note: Please also refer to the separate dictated note~for this date of service dictated separately.~Patient seen individually. Discussed the patient with Nursing staff reviewed the chart.~Reviewed interim history and current functioning. Reviewed vital signs,~Labs/ Radiology~and current medications noted below. Continue current treatment with the changes noted in the dictated addendum note Assessment: Vital Signs/I&O: Vital Signs Date Time Temp Pulse Resp B/P (MAP) Pulse Ox O2 Delivery O2 Flow Rate FiO2 09/20/18 19:21 96 126/85 09/20/18 15:40 98.3 16 98 09/20/18 06:02 Room Air I & O 09/19/18 09/19/18 09/20/18 14:59 22:59 06:59 Intake Total 240 ml 120 ml 120 ml Balance 240 ml 120 ml 120 ml Labs: Laboratory Tests Test 09/20/18 13:23 White Blood Count 9.7 x10^3/uL (4.0-11.0) Red Blood Count 3.67 x10^6/uL (4.30-5.70) L Hemoglobin 10.8 g/dL (13.0-17.5) L Hematocrit 33.2 % (39.0-53.0) L Mean Corpuscular Volume 90 fL (79-100) Mean Corpuscular Hemoglobin 30 pg (25-35) Mean Corpuscular Hemoglobin Concent 33 g/dL (31-37) Red Cell Distribution Width 15.0 % (11.5-14.5) H Platelet Count 262 x10^3/uL (140-400) Neutrophils (%) (Auto) 77 % (31-73) H Lymphocytes (%) (Auto) 12 % (24-48) L Monocytes (%) (Auto) 10 % (0-9) H Eosinophils (%) (Auto) 1 % (0-3) Basophils (%) (Auto) 0 % (0-3) Neutrophils # (Auto) 7.5 x10^3uL (1.8-7.7) Lymphocytes # (Auto) 1.2 x10^3/uL (1.0-4.8) Monocytes # (Auto) 1.0 x10^3/uL (0.0-1.1) Eosinophils # (Auto) 0.1 x10^3/uL (0.0-0.7) Basophils # (Auto) 0.0 x10^3/uL (0.0-0.2) Sodium Level 140 mmol/L (136-145) Potassium Level 4.6 mmol/L (3.5-5.1) Chloride Level 105 mmol/L (98-107) Carbon Dioxide Level 27 mmol/L (21-32) Anion Gap 8 (6-14) Blood Urea Nitrogen 27 mg/dL (8-26) H Creatinine 1.4 mg/dL (0.7-1.3) H Estimated GFR (Cockcroft-Gault) 49.0 BUN/Creatinine Ratio 19 (6-20) Glucose Level 98 mg/dL (70-99) Calcium Level 8.9 mg/dL (8.5-10.1) Total Bilirubin 0.4 mg/dL (0.2-1.0) Aspartate Amino Transferase (AST) 24 U/L (15-37) Alanine Aminotransferase (ALT) 18 U/L (16-63) Alkaline Phosphatase 94 U/L (46-116) Total Protein 6.4 g/dL (6.4-8.2) Albumin 3.4 g/dL (3.4-5.0) Albumin/Globulin Ratio 1.1 (1.0-1.7) Current Medications: I have reviewed the current psychotropics carefully including drug interactions. Risk benefit ratio favors no change other than as noted in my dictated progress note. Diagnosis: Problems: (1) Anxiety disorder (2) Dementia, vascular, with depression (3) Dementia, vascular, with delusions (4) Dementia in Alzheimer's disease with depression (5) Dementia in Alzheimer's disease with delusions (6) Impulse control disorder NELSON VASQUEZ MD Sep 20, 2018 22:48
[2018-09-21 05:42] VITALS: BP 135/93
[2018-09-21] MEDS: ASPIRIN ENTERIC COATED 81 MG TABLET.DR. PO SCH (07:59)
[2018-09-21] MEDS: DIVALPROEX 125 MG CAP.SPRINK PO SCH ×2 (08:00→17:28)
[2018-09-21] MEDS: APIXABAN 5 MG TABLET. PO SCH ×2 (08:01→19:49)
[2018-09-21] MEDS: FOLIC ACID 1 MG TABLET PO SCH (08:01)
[2018-09-21] MEDS: traZODone 50 MG TABLET. PO SCH ×2 (08:01→17:29)
[2018-09-21] MEDS: MULTIVITAMIN with MINERAL TABLET. PO SCH (08:02)
[2018-09-21] MEDS: ASCORBIC ACID 500 MG TABLET PO SCH (08:02)
[2018-09-21] MEDS: CHOLECALCIFEROL (VITAMIN D3) 1,000 UNIT TABLET PO SCH ×2 (08:02→19:48)
[2018-09-21] MEDS: METOPROLOL TART IMMED RELEASE 25 MG TABLET PO SCH ×2 (08:02→19:48)
[2018-09-21] MEDS: SERTRALINE 25 MG TABLET. PO SCH (08:02)
[2018-09-21] MEDS: AZELASTINE NASAL SPRAY 30ML BOTTLE. NS SCH ×2 (09:00→19:50)
--- NOTE | 2018-09-21 10:13 | NUR ---
Pt is confused, calm, cooperative. No agitation or aggression. He is cooperative with his medication this am and is compliant with his assessment. No hallucinations or delusions.
[2018-09-21 15:27] VITALS: BP 106/66
[2018-09-21] MEDS: MIRTAZAPINE 7.5 MG TABLET. PO SCH (19:48)
[2018-09-21] MEDS: ATORVASTATIN CALCIUM 20 MG TABLET PO SCH (19:48)
[2018-09-21] MEDS: risperiDONE 0.25 MG TABLET. PO SCH (19:48)
[2018-09-21] MEDS: MELATONIN 3 MG TABLET PO SCH (19:49)
[2018-09-21] MEDS: CALCIUM CARBONATE 500 MG TABLET PO SCH (19:49)
--- NOTE | 2018-09-21 22:15 | PDOC ---
Exam Note: Hu Note: Please also refer to the separate dictated note~for this date of service dictated separately.~Patient seen individually. Discussed the patient with Nursing staff reviewed the chart.~Reviewed interim history and current functioning. Reviewed vital signs,~Labs/ Radiology~and current medications noted below. Continue current treatment with the changes noted in the dictated addendum note Assessment: Vital Signs/I&O: Vital Signs Date Time Temp Pulse Resp B/P (MAP) Pulse Ox O2 Delivery O2 Flow Rate FiO2 09/21/18 19:48 82 106/66 09/21/18 15:27 97.0 16 98 09/20/18 06:02 Room Air I & O 09/20/18 09/20/18 09/21/18 15:00 23:00 07:00 Intake Total 960 ml 360 ml 120 ml Balance 960 ml 360 ml 120 ml Current Medications: I have reviewed the current psychotropics carefully including drug interactions. Risk benefit ratio favors no change other than as noted in my dictated progress note. Diagnosis: Problems: (1) Anxiety disorder (2) Dementia, vascular, with depression (3) Dementia, vascular, with delusions (4) Dementia in Alzheimer's disease with depression (5) Dementia in Alzheimer's disease with delusions (6) Impulse control disorder NELSON VASQUEZ MD Sep 21, 2018 22:15
--- NOTE | 2018-09-21 23:06 | NUR ---
Pt is calm, cooperative and compliant with medications. Speech is both sensical and nonsensical. He is forgetful and disorganized in thought process. His toothbrush has blood tinged saliva from brushing his teeth this evening. His skin has a patchy and macular rash on his torso, back, sides and groin. Pt states it does not hurt or itch. Pt's left eye is bloodshot. Pt denies pain or discomfort of any location or kind. Will continue to monitor.
[2018-09-22] MEDS ORDERED: DIVA125C2 PO (00:39)
[2018-09-22] MEDS ORDERED: MAG355OR17 PO (00:40)
[2018-09-22] MEDS ORDERED: LORA-254 PO (00:40)
[2018-09-22] MEDS ORDERED: MAGN2400 PO (00:41)
[2018-09-22] MEDS ORDERED: QUET25TA5 PO (00:42)
[2018-09-22] MEDS ORDERED: SERT50TA PO (00:42)
[2018-09-22] MEDS ORDERED: METH29OI TP (00:42)
[2018-09-22] MEDS ORDERED: RISP0.2519 PO (00:43)
[2018-09-22] MEDS ORDERED: TRAZ-120 PO (00:43)
--- NOTE | 2018-09-22 02:47 | PN ---
DATE: 09/20/2018 PSYCHIATRIC PROGRESS NOTE This late entry 09/20/2018, covers elements not covered in my initial note. SUBJECTIVE: I met with the patient in the evening. The patient slept 8-1/4 hours previous night, somewhat disorganized, confused, restless, was very agitated in the afternoon, received Ativan at 2 p.m. REVIEW OF SYSTEMS: No CV, , pulmonary, eye, ENT system symptoms on review. Reliability poor. MENTAL STATUS EXAM: Oriented to himself. Insight, judgment, recent and remote memory, attention, concentration, fund of knowledge poor, consistent with his diagnosis mentioned in my initial note. PLAN: No change from initial note. MAN Brinda VASQUEZ MD DR: OBDULIA/rosa elena JOB#: [id number] / [id number]
--- NOTE | 2018-09-22 02:50 | PN ---
DATE: 09/19/2018 PSYCHIATRIC PROGRESS NOTE This late entry 09/19/2018, covers elements not covered in my initial note. SUBJECTIVE: I met with the patient in the evening. The patient slept 7-1/2 hours previous night. He has been confused, irritable, resistive to cares, compliant with his medications. REVIEW OF SYSTEMS: No CV, , pulmonary, eye, ENT system symptoms on review. Reliability poor. MENTAL STATUS EXAM: Oriented to himself. Insight, judgment, recent and remote memory, attention, concentration, fund of knowledge poor, consistent with his diagnosis mentioned in my initial note. PLAN: Depakote has been increased to 250 mg twice a day since the level at the prior dosage was subtherapeutic at 19. Continue rest unchanged. Check CBC, CMP, valproic acid level, and ammonia level in 3 days. Adjust further as clinically indicated. MAN Brinda VASQUEZ MD DR: OBDULIA/rosa elena JOB#: [id number] / [id number]
[2018-09-22 06:02] VITALS: BP 118/73
--- NOTE | 2018-09-22 08:14 | NUR ---
GERARDO left msg. for Frida, nurse at [facility], requesting pick of time for pt. scheduled to discharge today.
[2018-09-22] MEDS: APIXABAN 5 MG TABLET. PO SCH (08:16)
[2018-09-22] MEDS: ASPIRIN ENTERIC COATED 81 MG TABLET.DR. PO SCH (08:16)
[2018-09-22] MEDS: traZODone 50 MG TABLET. PO SCH (08:16)
[2018-09-22] MEDS: DIVALPROEX 125 MG CAP.SPRINK PO SCH (08:16)
[2018-09-22] MEDS: FOLIC ACID 1 MG TABLET PO SCH (08:16)
[2018-09-22 08:19] VITALS: BP 118/73
[2018-09-22] MEDS: SERTRALINE 25 MG TABLET. PO SCH (08:19)
[2018-09-22] MEDS: MULTIVITAMIN with MINERAL TABLET. PO SCH (08:19)
[2018-09-22] MEDS: METOPROLOL TART IMMED RELEASE 25 MG TABLET PO SCH (08:19)
[2018-09-22] MEDS: CHOLECALCIFEROL (VITAMIN D3) 1,000 UNIT TABLET PO SCH (08:19)
[2018-09-22] MEDS: ASCORBIC ACID 500 MG TABLET PO SCH (08:19)
[2018-09-22] MEDS: AZELASTINE NASAL SPRAY 30ML BOTTLE. NS SCH (09:00)
[2018-09-22] MEDS: LORazepam 0.5 MG TABLET PO PRN (10:06)
--- NOTE | 2018-09-22 10:37 | NUR ---
Transition Record was faxed to follow-up provider with the following elements: Reason for admission, procedures, tests, principal diagnosis, pending studies, patient instructions, 29/10 contact information for unit, phone number to obtain pending test results, plan for follow-up care, physician follow-up, advanced directive information, and medication list with dose, duration and instructions. This information was included in the following documents: History and physical, lab results, study results, progress notes, social work planning form, DC instruction form, patient visit summary, and medication reconciliation form. Date & time record faxed:09/22/18 912 Record faxed to: [facility] Record discussed with/ report given to: Minnie. Discussed 2 missing items with daughter who picked pt up.
--- NOTE | 2018-09-22 13:39 | NUR ---
Called pts ativan prescription in to [facility]. Spoke to Zuleika.
--- NOTE | 2018-09-22 18:17 | PDOC ---
Exam Note: Hu Note: Please also refer to the separate dictated note~for this date of service dictated separately.~Patient seen individually. Discussed the patient with Nursing staff reviewed the chart.~Reviewed interim history and current functioning. Reviewed vital signs,~Labs/ Radiology~and current medications noted below. Continue current treatment with the changes noted in the dictated addendum note Assessment: Vital Signs/I&O: Vital Signs Date Time Temp Pulse Resp B/P (MAP) Pulse Ox O2 Delivery O2 Flow Rate FiO2 09/22/18 08:19 88 118/73 09/22/18 06:02 98.3 16 100 09/20/18 06:02 Room Air I & O 09/21/18 09/21/18 09/22/18 15:00 23:00 07:00 Intake Total 720 ml 180 ml 120 ml Balance 720 ml 180 ml 120 ml Current Medications: I have reviewed the current psychotropics carefully including drug interactions. Risk benefit ratio favors no change other than as noted in my dictated progress note. Diagnosis: Problems: (1) Impulse control disorder (2) Dementia in Alzheimer's disease with delusions (3) Dementia in Alzheimer's disease with depression (4) Dementia, vascular, with delusions (5) Dementia, vascular, with depression (6) Anxiety disorder NELSON VASQUEZ MD Sep 22, 2018 18:17
--- NOTE | 2018-09-22 23:35 | PN ---
DATE: 09/21/2018 PSYCHIATRIC PROGRESS NOTE This late entry 09/21/2018 covers elements not covered in my initial note. SUBJECTIVE: I met with the patient in the evening. The patient slept 6-1/2 hours previous night. He remains confused, but redirectable. REVIEW OF SYSTEMS: No CV, , pulmonary, eye, ENT system symptoms on review. Reliability poor. MENTAL STATUS EXAM: Oriented to himself. Insight, judgment, recent and remote memory, attention, concentration, fund of knowledge poor, consistent with his diagnosis mentioned in my initial note. PLAN: No change from initial note. MAN UdayArun VASQUEZ MD DR: OBDULIA/rosa elena JOB#: [id number] / [id number]
--- NOTE | 2018-09-23 09:11 | DS ---
DATE OF DISCHARGE: 09/22/2018 DISCHARGE SUMMARY AND PSYCHIATRIC PROGRESS NOTE This late entry, 09/22/2018, covers elements not covered in my initial note. REASON FOR ADMISSION: Please refer to the admission history for details. HISTORY OF PRESENT ILLNESS: Briefly, the patient is a 78-year-old male referred to us from [facility] consequent to worsening cognition, confusion and significant declined in the recent few days. Prior to this, the patient had been living by himself and the facility since 06/2018. He was combative, throwing sugar shakers, pulling fire alarms, pulled the handrail of the [place], scaring other residents by hiding. He was confused, psychotic, unmanageable, behaviors deemed dangerous and had failed outpatient psychiatric interventions resulting in this referral. SIGNIFICANT FINDING AND CLINICAL COURSE: Following admission, the patient was seen daily individually by myself from a psychiatric standpoint, medical followup with Dr. Pettit. The patient remained confused, anxious, restless. Adjustments were made in his psychotropics and he seemed to respond to a combination of melatonin 6 mg at bedtime for insomnia along with Remeron 7.5 mg at bedtime; trazodone 25 mg b.i.d. plus 25 mg b.i.d. p.r.n. anxiety, agitation, mood lability; Depakote 250 mg at 0900 hours and 1700 hours. Valproic acid level was subtherapeutic at 19, but clinically adequate as he was responding to this. He was quite paranoid, psychotic. Risperdal seemed to help this at 0.25 mg at bedtime, Zoloft 50 mg a day and Ativan was used p.r.n. Gradually, the patient's mood appeared to improve. He was much more redirectable, still confused. REVIEW OF SYSTEMS: Prior to discharge, 09/22/2018, no CV, , pulmonary, eye, ENT system symptoms on review. Reliability poor. He is not very verbal. MENTAL STATUS EXAM: Oriented to himself. Insight, judgment, recent and remote memory, attention, concentration, fund of knowledge poor, consistent with his diagnosis. FINAL DIAGNOSES: Major neurocognitive disorder; Alzheimer; vascular with delusion; depression; behavioral disturbance; anxiety disorder, unspecified; impulse control disorder, unspecified; rest unchanged from admission. DISCHARGE MEDICATIONS: Please refer to the MRAD. DISCHARGE INSTRUCTIONS: [facility]. Time for discharge day management greater than 30 minutes. NELSON VASQUEZ MD DR: OBDULIA/rosa elena JOB#: [id number] / [id number]
== END 2018-09-22 10:40 | DRG 57 ==
LOC: ER 15:16 → GEROPSY 15:45 → ER 17:40
PROVIDERS: ADMIT Psychiatry & Neurology Psychiatry; ATTEND Psychiatry & Neurology Psychiatry
DX: G30.9 Alzheimer's disease, unspecified (principal); F01.50 Vascular dementia, unspecified severity, without behavioral disturbance, psychotic disturbance, mood disturbance, and anxiety; F02.80 Dementia in other diseases classified elsewhere, unspecified severity, without behavioral disturbance, psychotic disturbance, mood disturbance, and anxiety; F32.9 Major depressive disorder, single episode, unspecified; F41.9 Anxiety disorder, unspecified; F63.9 Impulse disorder, unspecified; G47.00 Insomnia, unspecified; I10 Essential (primary) hypertension; I25.10 Atherosclerotic heart disease of native coronary artery without angina pectoris; I48.91 Unspecified atrial fibrillation; Z79.899 Other long term (current) drug therapy; Z95.5 Presence of coronary angioplasty implant and graft; K59.09 Other constipation; Z88.8 Allergy status to other drugs, medicaments and biological substances
CPT/HCPCS: 36415; 70450; 80053; 80061; 80164; 81001; 82306; 83036; 83540; 83550; 83735; 84436; 84443; 84480; 85025; 86592; 93005; 99285-25

== ENCOUNTER 2019-04-05 12:35 | Emergency (ER) | payer MEDICARE, BC ==
[~2019-04-05] VITALS: Ht 182.9 cm; Wt 60.0 kg
[~2019-04-05 12:35] MED LIST: ACET325T9 PO; APIX5TAB3 PO; ASCO-219 PO; ASPI-612 PO; ATOR40TA59 PO; AZEL137S3 NS; CALC500T31 PO; CHOL10003 PO; DIVA125C2 PO; FOLI1TAB16 PO; HYDR50CA2 PO; LORA-254 PO; MAG355OR17 PO; MAGN2400 PO; MELA3TAB56 PO; MEMA10TA PO; METH28OI2 TP; METO25TA4 PO; MIRT15TA PO; MULT1TAB52 PO; NITR0.4T22 SL; QUET25TA5 PO; RISP0.2519 PO; SENN1TAB62 PO; SERT50TA PO; TRAZ-120 PO
[2019-04-05] MEDS ORDERED: LIDOCAINE 1%/EPI 1:100,000 20 ML VIAL. IJ ONE (12:45)
[2019-04-05] MEDS ORDERED: LIDOCAINE 1% Multi-Dose 20 ML VIAL. ONE (12:45)
[2019-04-05] MEDS ORDERED: LIDOCAINE 1%/EPI 1:100,000 20 ML VIAL. ONE (12:46)
[2019-04-05 13:26] VITALS: BP 92/36
--- NOTE | 2019-04-05 13:54 | RAD ---
CT HEAD WO CONTRAST Indication: Fall, head injury. Exposure: One or more of the following individualized dose reduction techniques were utilized for this examination: 1. Automated exposure control 2. Adjustment of the mA and/or kV according to patient size 3. Use of iterative reconstruction technique. Technique: Standard imaging without intravenous contrast. Comparison: 09/04/2018. FINDINGS: No evidence of acute infarct cranial hemorrhage, mass effect, midline shift or abnormal extra-axial fluid collection. Low-density in the white matter bilaterally, a nonspecific finding, but which is commonly due to chronic small vessel ischemic disease in a patient of this age. More focal hypodensity in the right temporoparietal region is again seen and appears stable. Mild right frontal scalp swelling, presumably hematoma. Orbits appear unremarkable. Mastoids and auditory canals are grossly clear. Paranasal sinuses appear clear. No evidence of a depressed skull fracture. IMPRESSION: 1. Chronic intracranial findings appear stable. 2. Small right frontal scalp hematoma. 3. No evidence of acute intracranial hemorrhage. Electronically signed by: Sammy Marroquin MD (04/05/2019 1:51 PM) [facility]
--- NOTE | 2019-04-05 14:14 | PHYS DOC ---
Past History Past Medical History: A-Fib, Dementia, Other Past Surgical History: Cholecystectomy, Other Alcohol Use: None Drug Use: None Adult General Chief Complaint Chief Complaint: MECHANICAL FALL HPI HPI Patient is a 78-year-old male who arrives via EMS after reportedly falling out of wheelchair and hitting his head. There was no reported loss of consciousness. Patient does have history of advanced dementia and is on hospice. Hospice nurses requesting a CT of the head. Additional history is limited as patient is not answering any questions.[] Review of Systems Review of Systems Constitutional: No reported fever or chills [] Respiratory: No reported shortness of breath [] Cardiovascular: No additional information not addressed in HPI [] GI: No reported vomiting or diarrhea [] Integument: Positive laceration[] Neurologic: No reported loss of consciousness[] Unable to fully assess review of systems as patient is not answering questions and has advanced dementia. Current Medications Current Medications Current Medications Medications (Trade) Dose Ordered Sig/Marlin Start Time Stop Time Status Last Admin Dose Admin Lidocaine HCl 20 ml STK-MED ONCE 04/05/19 12:45 04/05/19 12:45 DC Lidocaine/ Epinephrine (Xylocaine 1%-Epi 1:100,000) 20 ml STK-MED ONCE 04/05/19 12:46 04/05/19 12:46 DC Allergies Allergies Allergies Coded Allergies Type Severity Reaction Last Updated Verified olanzapine Allergy Intermediate 09/11/18 Yes Physical Exam Physical Exam Constitutional: Well developed, well nourished, no acute distress, non-toxic appearance. [] HENT: Normocephalic, with stellate shaped laceration just above the right eyebrow, measuring 4.5 cm in total with slightly ragged margins and extending into muscle layer. No galeal involvement is noted. No oral trauma, oropharynx moist, no oral exudates, nose normal. [] Eyes: PERRLA, EOMI, conjunctiva normal, no discharge. [] Neck: Normal range of motion, no tenderness, supple. [] Cardiovascular: Regular rate and rhythm[] Lungs & Thorax: Bilateral breath sounds clear to auscultation [] Abdomen: Bowel sounds normal, soft, no tenderness. [] Skin: Warm, dry. Laceration as noted above. [] Extremities: No tenderness, no cyanosis, no clubbing, ROM intact. [] Neurologic: Somnolent but arousable, no obvious focal deficits noted. [] Current Patient Data Vital Signs Vital Signs Date Time Temp Pulse Resp B/P (MAP) Pulse Ox O2 Delivery O2 Flow Rate FiO2 04/05/19 13:26 123 16 92/36 (54) 98 Room Air 04/05/19 12:40 97.5 EKG EKG [] Radiology/Procedures Radiology/Procedures [] Impressions: PROCEDURE: CT HEAD WO CONTRAST CT HEAD WO CONTRAST Indication: Fall, head injury. Exposure: One or more of the following individualized dose reduction techniques were utilized for this examination: 1. Automated exposure control 2. Adjustment of the mA and/or kV according to patient size 3. Use of iterative reconstruction technique. Technique: Standard imaging without intravenous contrast. Comparison: 09/04/2018. FINDINGS: No evidence of acute infarct cranial hemorrhage, mass effect, midline shift or abnormal extra-axial fluid collection. Low-density in the white matter bilaterally, a nonspecific finding, but which is commonly due to chronic small vessel ischemic disease in a patient of this age. More focal hypodensity in the right temporoparietal region is again seen and appears stable. Mild right frontal scalp swelling, presumably hematoma. Orbits appear unremarkable. Mastoids and auditory canals are grossly clear. Paranasal sinuses appear clear. No evidence of a depressed skull fracture. IMPRESSION: 1. Chronic intracranial findings appear stable. 2. Small right frontal scalp hematoma. 3. No evidence of acute intracranial hemorrhage. Electronically signed by: Sammy Marroquin MD (04/05/2019 1:51 PM) [facility] Course & Med Decision Making Course & Med Decision Making Pertinent Labs and Imaging studies reviewed. (See chart for details) Laceration Repair by me: Anesthesia: 1% lidocaine locally Location: Right forehead, just above eyebrow Tendon/Joint/Nerves: No injury Foreign body: None detected after copious irrigation and exploration Technique: A total of 15 Simple Interrupted Sutures were placed utilizing 5-0 Ethilon suture material Complexity: No subcutaneous sutures/mucosal repair/edge excision Post Closure Length: 4.5 cm Patient's bleeding was easily controlled in the department and there is no indication of anemia. No evidence of compartment syndrome, neurologic injury, vascular injury, open joint, tendon laceration, or foreign body. Patient is appropriate for outpatient follow up. 48 hour wound check. Scar minimization instructions given. Dragon Disclaimer Dragon Disclaimer This electronic medical record was generated, in whole or in part, using a voice recognition dictation system. Departure Departure: Impression: Primary Impression: Head injury Additional Impression: Forehead laceration Disposition: 01 HOME, SELF-CARE Condition: STABLE Referrals: NON,STAFF (PCP) Patient Instructions: Facial Laceration, Head Injury, Adult, Laceration Care, Adult Problem Qualifiers Primary Impression: Head injury Encounter type: initial encounter Qualified Codes: S09.90XA - Unspecified injury of head, initial encounter Additional Impression: Forehead laceration Encounter type: initial encounter Qualified Codes: S01.81XA - Laceration without foreign body of other part of head, initial encounter MER REYES Jr. DO Apr 05, 2019 14:14
== END 2019-04-05 15:17 | disposition home or self-care (01) ==
LOC: ER 12:35
DX: S01.81XA Laceration without foreign body of other part of head, initial encounter (principal); I48.91 Unspecified atrial fibrillation; F03.90 Unspecified dementia, unspecified severity, without behavioral disturbance, psychotic disturbance, mood disturbance, and anxiety; Z88.8 Allergy status to other drugs, medicaments and biological substances; W05.0XXA Fall from non-moving wheelchair, initial encounter; Y93.89 Activity, other specified; Y92.89 Other specified places as the place of occurrence of the external cause; Y99.8 Other external cause status
CPT/HCPCS: 12013; 70450; 99284-25

== ENCOUNTER 2019-12-14 21:37 | Observation (INO) | payer MEDICARE, BC ==
[~2019-12-14] VITALS: Ht 182.9 cm; Wt 60.0 kg
[~2019-12-14 21:37] MED LIST changes: -ASCO-219 PO; +ASCO500T53 PO; -ASPI-612 PO; +ASPI-889 PO; -MAGN2400 PO; +MAGN24003 PO; +MELA3TAB4 PO; -MELA3TAB56 PO; +MULT-445 PO; -MULT1TAB52 PO
--- NOTE | 2019-12-14 21:51 | PHYS DOC ---
Past History Past Medical History: A-Fib, Dementia, Other Past Surgical History: Cholecystectomy, Other Alcohol Use: None Drug Use: None Adult General HPI HPI Patient is a 79-year-old male who presents from hospice home via EMS for acute respiratory distress. Initially, little is known about patient has EMS are primary historians. They state he has bad vascular dementia and is at baseline but respiratory issues are a new finding as patient is not oxygen dependent at the hospice facility. They report patient has been on hospice for unknown reason but daughter who is POA recently rescinded this. His CODE STATUS is unknown on arrival. Patient found to be hypoxic in the upper 80s on room air and showed atrial fibrillation with RVR ~140bpm in the field. Patient was urgently transported to our facility for higher acuity of care. Further information was provided by daughter who is POSherrill via telephone call. She is unsure why patient was placed on hospice in the first place. Admits she rescinded hospice citing "he has been doing much better recently". She confirmed patient is a DO NOT RESUSCITATE CODE STATUS. No fevers reported, no COVID-19 contacts or exposure in the hospice facility, no other known preceding symptoms prior to this evening's acute decompensation per daughter Review of Systems Review of Systems ROS unobtainable given patient's mentation Allergies Allergies Allergies Coded Allergies Type Severity Reaction Last Updated Verified olanzapine Allergy Intermediate 09/11/18 Yes Physical Exam Physical Exam Constitutional: Pt is alert only, not oriented to person place or time. This is baseline per EMS personnel. Pt appears cachectic and ill-appearing HENT: Head: Normocephalic and atraumatic. Mouth/Throat: Oropharynx is clear and dry No hematomas or lacerations or abrasions to face or scalp OP clear, no blood, no malocclusion, dentition intact Nares clear, no nasal septal hematoma TMs clear, no hemotympanum Midface stable Eyes: Conjunctivae and EOM are normal. Pupils are equal, round, and reactive to light. Neck: C-spine midline nontender, no step-offs Cardiovascular: Tachycardic rate, irregularly irregular rhythm and normal heart sounds. Pulmonary/Chest: Moderate respiratory distress on arrival with prominent wheezes and rhonchi in bilateral lobes, decreased breath sounds in bilateral bases, accessory muscle usage of neck noted Abdominal: Soft. Bowel sounds are normal. Pt exhibits no distension. There is no tenderness. Musculoskeletal: No bony tenderness to extremities, no deformities, full ROM extremities Chest wall stable Pelvis stable and non-tender No vertebral TTP and spine without stepoffs Neurological: Pt is alert only Spontaneously moving all extremities willfully, able to wiggle all fingers and toes Alert only Sensation grossly intact Skin: Skin is warm and dry. No abrasions, no lacerations Psychiatric: Behavior is appropriate for situation Nursing note and vitals reviewed. Current Patient Data Vital Signs Vital Signs Date Time Temp Pulse Resp B/P (MAP) Pulse Ox O2 Delivery O2 Flow Rate FiO2 12/14/19 21:37 97.6 127 22 126/93 (104) 98 Nasal Cannula 2.0 Lab Results Laboratory Tests Test 12/14/19 21:42 12/14/19 21:45 Sodium Level 141 mmol/L (136-145) Potassium Level 3.9 mmol/L (3.5-5.1) Chloride Level 104 mmol/L (98-107) Carbon Dioxide Level 27 mmol/L (21-32) Anion Gap 10 (6-14) Blood Urea Nitrogen 19 mg/dL (8-26) Creatinine 1.1 mg/dL (0.7-1.3) Estimated GFR (Cockcroft-Gault) 64.6 BUN/Creatinine Ratio 17 (6-20) Glucose Level 85 mg/dL (70-99) Calcium Level 9.2 mg/dL (8.5-10.1) Total Bilirubin 0.5 mg/dL (0.2-1.0) Aspartate Amino Transf (AST/SGOT) 19 U/L (15-37) Alanine Aminotransferase (ALT/SGPT) 11 U/L (16-63) Alkaline Phosphatase 140 U/L (46-116) Total Protein 7.5 g/dL (6.4-8.2) Albumin 3.5 g/dL (3.4-5.0) Albumin/Globulin Ratio 0.9 (1.0-1.7) White Blood Count 8.0 x10^3/uL (4.0-11.0) Red Blood Count 3.72 x10^6/uL (4.30-5.70) Hemoglobin 11.4 g/dL (13.0-17.5) Hematocrit 35.1 % (39.0-53.0) Mean Corpuscular Volume 94 fL (79-100) Mean Corpuscular Hemoglobin 31 pg (25-35) Mean Corpuscular Hemoglobin Concent 33 g/dL (31-37) Red Cell Distribution Width 16.2 % (11.5-14.5) Platelet Count 315 x10^3/uL (140-400) Neutrophils (%) (Auto) 64 % (31-73) Lymphocytes (%) (Auto) 24 % (24-48) Monocytes (%) (Auto) 10 % (0-9) Eosinophils (%) (Auto) 1 % (0-3) Basophils (%) (Auto) 1 % (0-3) Neutrophils # (Auto) 5.1 x10^3uL (1.8-7.7) Lymphocytes # (Auto) 1.9 x10^3/uL (1.0-4.8) Monocytes # (Auto) 0.8 x10^3/uL (0.0-1.1) Eosinophils # (Auto) 0.1 x10^3/uL (0.0-0.7) Basophils # (Auto) 0.0 x10^3/uL (0.0-0.2) Prothrombin Time 10.4 SEC (9.4-11.4) Prothromb Time International Ratio 1.0 (0.9-1.1) Activated Partial Thromboplast Time 30 SEC (23-33) Magnesium Level 2.1 mg/dL (1.8-2.4) Ammonia < 10 mcmol/L (11-34) Creatine Kinase 143 U/L (39-308) Troponin I Quantitative < 0.017 ng/mL (0-0.055) XZ-Oqr-W-Type Natriuretic Peptide 1969 pg/mL (0-449) EKG EKG EKG ordered and interpreted by myself at 2207 hrs. as atrial fibrillation with ventricular rate of 116 bpm, intervals unremarkable, no axis deviation, no obvious fascicular blocks, no acute ischemic findings, no STEMI Radiology/Procedures Radiology/Procedures PROCEDURE: PORTABLE CHEST 1V PORTABLE CHEST 1V Clinical History: Reason: shob / Spl. Instructions: / History: Technique: AP view of the chest was obtained at 12/14/2019 9:48 PM. Comparison: None. Findings: The cardiomediastinal silhouette is normal. The pulmonary vasculature is normal. There is a fracture the distal left clavicle. There is mild patchy opacities in the lung bases. Impression: 1. Nondisplaced fracture of the distal left clavicle. 2. Mild basal infiltrates likely discoid atelectasis. Electronically signed by: Lance Rojas III, MD (12/14/2019 10:02 PM) [facility] Course & Med Decision Making Course & Med Decision Making Patient in obvious acute respiratory distress seen on immediate ER arrival Airway patent, breathing labored with obvious respiratory distress, vitals remarkable for atrial fibrillation with RVR ~140bpm, saturating greater than 90% on 6 L nasal cannula, and tachypneic with rate >30bpm IV access obtained and patient immediately placed on BiPAP with significant i mprovement in symptoms Limited history obtained from EMS with subsequent history obtained from daughter, comprehensive physical exam/secondary survey performed and grossly non-concerning. Subsequent diagnostic studies ordered Patient monitored throughout entire ER stay with improvement in respiratory symptoms. No emergent or surgical pathology present but patient is high risk for acute decompensation if discharged home, he will need to be admitted I discussed with on-call hospitalist, Dr. Ortega, need for admission for continued medical care. Patient has difficult social situation. POA, daughter, I feel is unaware of true meaning of hospice and patient's condition/prognosis. She will need realistic goals of care discussion. Dr. Ortega agrees Case discussed with daughter, discussed need for admission to the hospital for further medical management and future discussions regarding plans of care for her DNR father who was recently rescinded from hospice care, she was amenable Ultimately patient stabilized prior to transport to [facility] in stable condition for continued medical management Critical Care Time This patient required critical care. Due to the fact that the patient required a significant amount of one on one physician - patient contact time, ordering and review of studies, arranging urgent treatment with development of a management plan, evaluation of patients response to treatment with frequent reassessments, and discussions with other providers this patient required critical care time in excess of 30 minutes. Critical care time was indicated due to the inherent instability and/or potential for instability in this patient. The critical care time that is allocated to this patient is above and beyond any time spent on any other billable procedures performed on this patient. Dragon Disclaimer Dragon Disclaimer This electronic medical record was generated, in whole or in part, using a voice recognition dictation system. The HEART Score for CP Pts HEART Score for Chest Pain: HEART Score for Chest Pain Response (Comments) Value History Moderately Suspicious 1 ECG Normal 0 Age > 65 2 Risk Factors >3 Risk Factors or Hx CAD 2 Troponin < Normal Limit 0 Total 5 Risk Factors: Risk Factors: DM, Current or recent (<one month) smoker, HTN, HLP, family history of CAD, obesity. Risk Scores: Score 0 - 3: 2.5% MACE over next 6 weeks - Discharge Home Score 4 - 6: 20.3% MACE over next 6 weeks - Admit for Clinical Observation Score 7 - 10: 72.7% MACE over next 6 weeks - Early Invasive Strategies Departure Departure: Impression: Primary Impression: Acute respiratory distress Additional Impressions: Atrial fibrillation Neoplasm of prostate Vascular dementia DNR (do not resuscitate) Disposition: ADMITTED INPATIENT Admitting Physician: Mg Ortega Condition: STABLE Referrals: NON,STAFF (PCP) Justification of Admission: Justification of Admission: Justification of Admission Dx: Yes Respiratory Failure: Severe Resp Distress Problem Qualifiers SUKHDEV CABA DO Dec 14, 2019 21:51
--- NOTE | 2019-12-14 22:05 | RAD ---
PORTABLE CHEST 1V Clinical History: Reason: shob / Spl. Instructions: / History: Technique: AP view of the chest was obtained at 12/14/2019 9:48 PM. Comparison: None. Findings: The cardiomediastinal silhouette is normal. The pulmonary vasculature is normal. There is a fracture the distal left clavicle. There is mild patchy opacities in the lung bases. Impression: 1. Nondisplaced fracture of the distal left clavicle. 2. Mild basal infiltrates likely discoid atelectasis. Electronically signed by: Lance Rojas III, MD (12/14/2019 10:02 PM) [facility]
[2019-12-14 22:14] LABS: BASO % 1 % (0-3); EOS # 0.1 x10^3/uL (0.0-0.7); EOS % 1 % (0-3); HEMATOCRIT 35.1 % (39.0-53.0); HEMOGLOBIN 11.4 g/dL (13.0-17.5); LYMPH # 1.9 x10^3/uL (1.0-4.8); LYMPH % 24 % (24-48); MEAN CORPUSCULAR HEMOGLOBIN 31 pg (25-35); MEAN CORPUSCULAR HGB CONC 33 g/dL (31-37); MEAN CORPUSCULAR VOLUME 94 fL (79-100); MONO # 0.8 x10^3/uL (0.0-1.1); MONO % 10 % (0-9); NEUT # 5.1 x10^3uL (1.8-7.7); NEUT % 64 % (31-73); PLATELET COUNT 315 x10^3/uL (140-400); RED BLOOD COUNT 3.72 x10^6/uL (4.30-5.70); RED CELL DISTRIBUTION WIDTH 16.2 % (11.5-14.5)
[2019-12-14 22:29] LABS: MAGNESIUM 2.1 mg/dL (1.8-2.4)
[2019-12-14] MEDS ORDERED: methylPREDNISolone SOD SUCC PF 125 MG/2 ML VIAL. IV ONE (22:45)
[2019-12-14] MEDS ORDERED: FUROSEMIDE 40 MG/4 ML VIAL IVP ONE (22:45)
[2019-12-14 23:17] LABS: CALCIUM 9.2 mg/dL (8.5-10.1); CREATININE 1.1 mg/dL (0.7-1.3); GFR 64.6; POTASSIUM 3.9 mmol/L (3.5-5.1)
[2019-12-14 23:23] LABS: ALBUMIN 3.5 g/dL (3.4-5.0); ALBUMIN/GLOBULIN RATIO 0.9 (1.0-1.7); TOTAL BILIRUBIN 0.5 mg/dL (0.2-1.0); TOTAL PROTEIN 7.5 g/dL (6.4-8.2)
[2019-12-15 00:20] VITALS: BP 117/84
--- NOTE | 2019-12-15 00:20 | NUR ---
The patient, ERIC BALL, 79 y/o, M admitted by ISRAEL BARNARD MD, was given written information regarding hospital policies, unit procedures and contact persons. Pt is on Hospice at [facility]. Valuables were checked and vitals stable. pt is on 2L NC sating at 93%. pts brief was wet and changed apon admission. unable to assess pts orientation. pt in non verbal but will mumble non sence noises. pts was suctioned in ED. Pt is in bed resting. will continue to monitor.
[2019-12-15] MEDS ORDERED: HYOS0.1222 PO (02:00)
[2019-12-15] MEDS ORDERED: MEMA10TA PO (02:00)
[2019-12-15] MEDS ORDERED: COLC0.6T34 PO (02:00)
[2019-12-15] MEDS ORDERED: LORA2ORA8 PO (02:00)
[2019-12-15] MEDS ORDERED: BUSP10TA PO (02:00)
[2019-12-15] MEDS ORDERED: ONDA4TAB7 PO (02:00)
[2019-12-15] MEDS ORDERED: FOLI0.4T2 PO (02:00)
[2019-12-15] MEDS ORDERED: GUAI600T6 PO (02:00)
[2019-12-15] MEDS ORDERED: MORP100S3 PO (02:00)
[2019-12-15] MEDS ORDERED: PANT40TA6 PO (02:00)
[2019-12-15] MEDS ORDERED: QUET25TA5 PO (02:00)
[2019-12-15] MEDS ORDERED: QUET50TA PO (02:00)
[2019-12-15] MEDS ORDERED: SCOPOLAMINE 1.5MG PATCH. TD SCH (02:39)
[2019-12-15] MEDS: MORPHINE SULFATE 4 MG/ML DISP.SYRIN. IV PRN ×3 (02:56→17:20)
[2019-12-15 03:28] LABS: BGAS PH 7.45 (7.35-7.46)
[2019-12-15 05:38] VITALS: BP 115/76
--- NOTE | 2019-12-15 08:24 | EKG ---
[address] [address] Test Date: 2019-12-14 Test Time: 21:58:28 Pat Name: ERIC BALL Department: Room: 107 A Gender: M Hollock Maker: KAVIN : [id number] Requested By: SUKHDEV CABA Order Number: [id number] Reading MD: Measurements Intervals [place] Rate: 120 P: 0 CA: 106 QRS: 51 QRSD: 86 T: -17 QT: 326 QTc: 466 Interpretive Statements SINUS TACHYCARDIA T ABNORMALITY IN ANTERIOR LEADS ABNORMAL ECG RI6.02 No previous ECG available for comparison
--- NOTE | 2019-12-15 10:21 | HP ---
ADMIT DATE: 12/14/2019 ATTENDING PHYSICIAN: Dr. Barnard. CHIEF COMPLAINT: Obtundation and unable to care for himself. HISTORY OF PRESENT ILLNESS: The patient is a 79-year-old gentleman, who is profoundly demented. He was placed in hospice care. He has had underlying depression and anxiety. He clearly is in decline. He has had a previous history of atrial fibrillation and COPD. The daughter who was the power of employment law attorney evidently rescinded the hospice orders and was unable to care for him at home. She brought him to the Emergency Room. It is unclear whether she understands what hospice is doing. She states that he is getting better, although when I saw him, he clearly was obtunded and appeared to be actively dying. In any event, I will try to contact the daughter to see what expectations are. In the meantime, Ativan and morphine has been ordered for patient's comfort. She does tell us he is a DNR per advanced directives. PAST MEDICAL HISTORY: Significant for cholecystectomy. He has had profound vascular dementia, Alzheimer's disease, paroxysmal atrial fibrillation, and generalized debilitation. CURRENT MEDICATIONS: Reviewed. He was taking Tylenol, aspirin, BuSpar, colchicine, Depakote, folic acid, guaifenesin, hyoscyamine, lorazepam, magnesium hydroxide, melatonin, Namenda, morphine, Protonix, Seroquel, and senna. ALLERGIES: He has allergies to OLANZAPINE, reaction is unclear. FAMILY HISTORY: Unobtainable. REVIEW OF SYSTEMS: Unobtainable. PHYSICAL EXAMINATION: GENERAL: When I saw him, this is a chronic appearing gentleman who was poorly responsive. He does not open his eyes. He is moaning and he has significant difficulty with secretions. VITAL SIGNS: Showed a blood pressure of 115/76, pulse is 120 and irregular, temperature 97.7 degrees Fahrenheit, oxygen saturation 96% on 2 liters of nasal cannula. HEENT: Head is without trauma. Pupils are reactive. Sclerae are nonicteric. Oropharynx is clear. NECK: Supple, no bruits. LUNGS: Shallow respirations. He has coarse rhonchi and rattling. CARDIOVASCULAR: Showed distant heart tones, tachycardic rhythm. No gallops. Peripheral pulses are palpable and weak. ABDOMEN: Soft, scaphoid, nontender, no guarding. EXTREMITIES: Showed contractures, muscle wasting. NEUROLOGIC: The patient is obtunded and not responsive. He is nonambulatory. PERTINENT LABORATORY STUDIES: Hemoglobin is 11.4 g/dL with a white count of 8000. Electrolytes are within normal range. Cardiac enzymes are negative. BNP 1969. Ammonia level was normal. ASSESSMENT: 1. A 79-year-old gentleman who was in decline. I believe he was actively dying and placed in hospice. 2. Daughter, BRETT has rescinded hospice care. I do not know what her expectations are at this time. 3. Profound underlying dementia. 4. Paroxysmal atrial fibrillation. 5. Generalized debilitation. PLAN: 1. We will continue comfort measures with morphine and Ativan. 2. We will have our adult protective caseworkermanager financial the daughter to have some guidance from her standpoint. His prognosis is terminal. ISRAEL BARNARD MD DR: SHALINI/rosa elena JOB#: [id number] / [id number]
[2019-12-15 11:06] VITALS: BP 97/65
[2019-12-15 15:00] VITALS: BP 101/65
--- NOTE | 2019-12-15 17:30 | NUR ---
Patient was given a dose of morphine for the EMS ride home for hospice. The scanned dose did not get saved therefore this RN had to re-administered the medication on the eMAR.
--- NOTE | 2019-12-15 17:31 | NUR ---
Patient discharged home with Hospice Care per family request. Patient left the unit with all of his belongings. Patient left the unit via gurney escorted by EMS personnel. Patient's vital signs were stable but the patient was still non communicative and somewhat unresponsive.
--- NOTE | 2019-12-15 18:14 | DS ---
DATE OF DISCHARGE: 12/15/2019 ATTENDING PHYSICIAN: Dr. Barnard. FINAL DISCHARGE DIAGNOSES: 1. Profound dementia, end-stage. 2. Probable aspiration. 3. Generalized debilitation. 4. Dehydration. HISTORY OF PRESENT ILLNESS: This is a 79-year-old gentleman who had been hospice at a local [facility]. The daughter rescinded hospice care and insisted on he be admitted to the hospital. He came into the Emergency Room last night. The patient was admitted for comfort measures. PHYSICAL EXAMINATION: Please see the dictated note. PERTINENT LABORATORY AND X-RAY STUDIES: On the database. COURSE IN THE HOSPITAL: The patient was admitted to the medical floor overnight to come up with a predisposition. He was obtunded. He had no ability for secretions for clearing. I believe the patient was actually dying. Morphine and Ativan was administered for discomfort along with supplemental oxygen. By the next day, the family was contacted, the daughter decided to go with [facility]. She did not want to return to the [facility], she wanted to take him home, so he could at home. Arrangements were then made by ambulance with the patient to go to the daughter's home. [facility] will provide equipment for end-of-life care. The patient was then discharged from our hospital with explicit instruction for hospice and end-of-life care at his daughter's home. ISRAEL BARNARD MD DR: SHALINI/rosa elena JOB#: [id number] / [id number]
== END 2019-12-15 17:20 | disposition home or self-care (01) ==
LOC: ER 21:37 → INTOOBSV 23:14 → 1 SOUTH 23:14 → UNDOADMIN 12-15 00:02 → 1 SOUTH 12-15 00:02
PROVIDERS: ADMIT Hospitalist; ATTEND Hospitalist
DX: F02.80 Dementia in other diseases classified elsewhere, unspecified severity, without behavioral disturbance, psychotic disturbance, mood disturbance, and anxiety (principal); I48.0 Paroxysmal atrial fibrillation; J44.9 Chronic obstructive pulmonary disease, unspecified; J98.11 Atelectasis; G30.9 Alzheimer's disease, unspecified; R06.03 Acute respiratory distress; C61 Malignant neoplasm of prostate; F41.9 Anxiety disorder, unspecified; F32.9 Major depressive disorder, single episode, unspecified; F01.50 Vascular dementia, unspecified severity, without behavioral disturbance, psychotic disturbance, mood disturbance, and anxiety; Z79.82 Long term (current) use of aspirin; Z90.49 Acquired absence of other specified parts of digestive tract
CPT/HCPCS: 36415; 36600; 71045; 80053; 82140; 82550; 82803; 83735; 83880; 84484; 85025; 85610; 85730; 87040; 93005; 96374; 96375; 96376; 99291; G0378; J2060; J2270; J2930; G0379; 99285-25